=== PATIENT | female | born 1955 | race African-American/Black ===

== ENCOUNTER 2016-04-25 10:01 | Emergency (ER) | payer OTHER ==
[2016-04-25] MEDS ORDERED: MAGNESIUM SULFATE-D5W PMX 1 GM in DEXTROSE/WATER 1 100ML.BAG IVPB STA (10:22)
[2016-04-25] MEDS ORDERED: methylPREDNISolone SOD SUCCI 125 MG/2 ML VIAL IV STA (10:22)
[2016-04-25] MEDS ORDERED: SODIUM CHLORIDE 0.9% 1,000 ML IV STA (10:22)
[2016-04-25] MEDS ORDERED: IPRATROPIUM-ALBUTEROL 3 ML NEB INHALATION STA ×2 (10:22→12:00)
--- NOTE | 2016-04-25 10:25 | ED ---
SOB HPI - General Chief Complaint: Shortness of Breath Stated Complaint: sob Time Seen by Provider: 04/25/16 10:05 Source: patient, RN notes reviewed Mode of arrival: ambulatory Limitations: no limitations - History of Present Illness Initial Comments: This is a 61 also has had some hot flashes. She states she has some anterior chest pain she thinks is secondary to coughing. No known history of heart disease. She denies any chills or sweats she is a nonsmoker. She denies any nausea vomiting abdominal pain or other symptoms. No peripheral edema.-year- old female with a history of asthma and sarcoid who states she had the onset 5 days ago of some shortness of breath and a cough this somewhat productive and she has a difficult time getting phlegm up who MD Complaint: shortness of breath, cough - Related Data Home Medications Medication Instructions Recorded Confirmed Albuterol Inhaler [Ventolin Hfa 1 - 2 puff INHALATION RT-Q6H PRN 05/09/14 Inhaler] Fluticasone/Salmeterol [Advair 1 puff INHALATION RT-BID 05/09/14 04/25/16 500-50 Diskus] Montelukast [Singulair] 10 mg PO HS 05/09/14 04/25/16 Multivitamins, Thera [Multivitamin] 1 tab PO DAILY 05/09/14 04/25/16 Triamcinolone Acetonide [Nasacort] 1 spray EA NOSTRIL DAILY PRN 05/09/14 amLODIPine [Norvasc] 10 mg PO HS 05/09/14 04/25/16 Albuterol Nebulized [Ventolin 2.5 mg INHALATION RT-Q4H PRN 04/25/16 04/25/16 Nebulized] Aspirin EC [Ecotrin Low Dose] 81 mg PO HS 04/25/16 04/25/16 Loratadine [Claritin] 10 mg PO DAILY 04/25/16 04/25/16 Omeprazole 40 mg PO HS 04/25/16 04/25/16 Propylene Glycol/Peg 400/Pf 1 drop BOTH EYES DAILY PRN 04/25/16 04/25/16 [Systane 0.3-0.4% Eye Drops] Previous Rx's Medication Instructions Recorded predniSONE 20 mg PO BID #10 tab 04/25/16 Allergies Allergy/AdvReac Type Severity Reaction Status Date / Time Penicillins Allergy Rash/Hives Verified 04/25/16 10:26 Review of Systems ROS Statement: Those systems with pertinent positive or pertinent negative responses have been documented in the HPI. ROS Other: All systems not noted in ROS Statement are negative. Past Medical History Past Medical History: Asthma, GERD/Reflux, Hypertension Additional Past Medical History / Comment(s): Sarcoidosis History of Any Multi-Drug Resistant Organisms: None Reported Past Surgical History: Bowel Resection Additional Past Surgical History / Comment(s): EGD, VOCAL CORD POLYPS Past Anesthesia/Blood Transfusion Reactions: No Reported Reaction Past Psychological History: No Psychological Hx Reported Smoking Status: Never smoker Past Alcohol Use History: Occasional Past Drug Use History: None Reported - Past Family History Father Family Medical History: Cancer Additional Family Medical History / Comment(s): throat cancer Mother Family Medical History: Musculoskeletal Disorder Additional Family Medical History / Comment(s): knee surgery General Exam - General Exam Comments Initial Comments: This is a well-developed well-nourished awake alert oriented 3 female she is audibly wheezing just on an questioning Limitations: no limitations General appearance: alert, anxious, in distress Head exam: Present: atraumatic, normocephalic, normal inspection Eye exam: Present: normal appearance, PERRL, EOMI. Absent: scleral icterus, conjunctival injection, periorbital swelling ENT exam: Present: normal exam, mucous membranes moist Neck exam: Present: normal inspection. Absent: tenderness, meningismus, lymphadenopathy Respiratory exam: Present: respiratory distress, wheezes, decreased breath sounds. Absent: rales, rhonchi, stridor Cardiovascular Exam: Present: normal rhythm, tachycardia, normal heart sounds. Absent: systolic murmur, diastolic murmur, rubs, gallop, clicks GI/Abdominal exam: Present: soft, normal bowel sounds. Absent: distended, tenderness, guarding, rebound, rigid Extremities exam: Present: normal inspection, full ROM, normal capillary refill. Absent: tenderness, pedal edema, joint swelling, calf tenderness Back exam: Present: normal inspection Neurological exam: Present: alert, oriented X3, CN II-XII intact Psychiatric exam: Present: normal affect, normal mood Skin exam: Present: warm, dry, intact, normal color. Absent: rash Course Vital Signs 01/07/0704/25/16 04/25/16 10:05 10:35 10:40 Temperature 97.6 F Pulse Rate 102 H 100 101 H Respiratory 20 Rate Blood Pressure 155/70 O2 Sat by Pulse 95 Oximetry 04/25/16 04/25/16 04/25/16 10:57 10:59 12:17 Temperature Pulse Rate 91 94 Respiratory 18 18 Rate Blood Pressure 144/69 O2 Sat by Pulse 99 Oximetry 04/25/16 12:25 Temperature Pulse Rate 96 Respiratory Rate Blood Pressure O2 Sat by Pulse Oximetry - Reevaluation(s) Reevaluation #1: 04/25/16 13:06 Initial reevaluation revealed slight improvement with still diffuse wheezing. The patient did not feel much better. Medical Decision Making - Medical Decision Making Reevaluation the patient revealed her to be much improved with good aeration she feels much better than she did initially. She still has occasional slight crepitation was does seem to clear with deep breathing. She would like to go home though she was offered admission. She will follow-up with Dr. Sutton who she is seen in the past we did discuss the x-ray findings. She does have appropriate medications at home she will be placed on steroids. She is return when necessary - Lab Data Result diagrams: 04/25/16 10:46 04/25/16 10:46 Lab Results 04/25/16 04/25/16 04/25/16 Range/Units 10:46 10:46 10:46 WBC 7.5 (3.8-10.6) k/uL RBC 4.65 (3.80-5.40) m/uL Hgb 12.9 (11.4-16.0) gm/dL Hct 40.3 (34.0-46.0) % MCV 86.8 (80.0-100.0) fL MCH 27.7 (25.0-35.0) pg MCHC 31.9 (31.0-37.0) g/dL RDW 13.2 (11.5-15.5) % Plt Count 238 (150-450) k/uL Neutrophils % 72 % Lymphocytes % 19 % Monocytes % 5 % Eosinophils % 1 % Basophils % 0 % Neutrophils # 5.4 (1.3-7.7) k/uL Lymphocytes # 1.4 (1.0-4.8) k/uL Monocytes # 0.4 (0-1.0) k/uL Eosinophils # 0.1 (0-0.7) k/uL Basophils # 0.0 (0-0.2) k/uL PT (9.0-12.0) sec INR (<1.1) APTT (22.0-30.0) sec Sodium 145 (137-145) mmol/L Potassium 3.9 (3.5-5.1) mmol/L Chloride 106 (98-107) mmol/L Carbon Dioxide 26 (22-30) mmol/L Anion Gap 13 mmol/L BUN 10 (7-17) mg/dL Creatinine 0.72 (0.52-1.04) mg/dL Est GFR (MDRD) Af Amer >60 (>60 ml/min/1.73 sqM) Est GFR (MDRD) Non-Af >60 (>60 ml/min/1.73 sqM) Glucose 120 H (74-99) mg/dL Calcium 8.9 (8.4-10.2) mg/dL Magnesium 2.0 (1.6-2.3) mg/dL Total Bilirubin 0.4 (0.2-1.3) mg/dL AST 24 (14-36) U/L ALT 30 (9-52) U/L Alkaline Phosphatase 97 (38-126) U/L Total Creatine Kinase 165 H (30-135) U/L CK-MB (CK-2) 1.6 (0.0-2.4) ng/mL CK-MB (CK-2) Rel Index 1.0 Troponin I <0.012 (0.000-0.034) ng/mL NT-Pro-B Natriuret Pep pg/mL Total Protein 7.4 (6.3-8.2) g/dL Albumin 4.1 (3.5-5.0) g/dL 04/25/16 04/25/16 Range/Units 10:46 10:46 WBC (3.8-10.6) k/uL RBC (3.80-5.40) m/uL Hgb (11.4-16.0) gm/dL Hct (34.0-46.0) % MCV (80.0-100.0) fL MCH (25.0-35.0) pg MCHC (31.0-37.0) g/dL RDW (11.5-15.5) % Plt Count (150-450) k/uL Neutrophils % % Lymphocytes % % Monocytes % % Eosinophils % % Basophils % % Neutrophils # (1.3-7.7) k/uL Lymphocytes # (1.0-4.8) k/uL Monocytes # (0-1.0) k/uL Eosinophils # (0-0.7) k/uL Basophils # (0-0.2) k/uL PT 10.2 (9.0-12.0) sec INR 1.0 (<1.1) APTT 24.2 (22.0-30.0) sec Sodium (137-145) mmol/L Potassium (3.5-5.1) mmol/L Chloride (98-107) mmol/L Carbon Dioxide (22-30) mmol/L Anion Gap mmol/L BUN (7-17) mg/dL Creatinine (0.52-1.04) mg/dL Est GFR (MDRD) Af Amer (>60 ml/min/1.73 sqM) Est GFR (MDRD) Non-Af (>60 ml/min/1.73 sqM) Glucose (74-99) mg/dL Calcium (8.4-10.2) mg/dL Magnesium (1.6-2.3) mg/dL Total Bilirubin (0.2-1.3) mg/dL AST (14-36) U/L ALT (9-52) U/L Alkaline Phosphatase (38-126) U/L Total Creatine Kinase (30-135) U/L CK-MB (CK-2) (0.0-2.4) ng/mL CK-MB (CK-2) Rel Index Troponin I (0.000-0.034) ng/mL NT-Pro-B Natriuret Pep 88 pg/mL Total Protein (6.3-8.2) g/dL Albumin (3.5-5.0) g/dL - EKG Data -: EKG Interpreted by Me EKG shows normal: sinus rhythm (Sinus rhythm a rate of 94. Interval 146 QRS duration 96 QT/QTC of 388/45 prolonged QT is noted no acute ST T-wave elevation or depression.) - Radiology Data Radiology results: report reviewed (I did review the imaging and report or is evidence of persistent bilateral hilar enlargement greater on the right and does appear to be somewhat increased from the previous exam per the radiologist correlation is for adenopathy or mass.), image reviewed Disposition Clinical Impression: Acute exacerbation of chronic obstructive airways disease, Sarcoidosis of lung , Acute bronchospasm Disposition: HOME SELF-CARE Condition: Good Instructions: Bronchospasm (ED), COPD (Chronic Obstructive Pulmonary Disease) ( ED), Sarcoidosis (ED) Prescriptions: predniSONE 20 mg PO BID #10 tab
[2016-04-25 11:02] VITALS: RESP 18
[2016-04-25 11:10] LABS: Basophils % (A) 0 %; CH 27.7; CHCM 32.1; Eosinophils # (A) 0.1 k/uL (0-0.7); Eosinophils % (A) 1 %; HCT 40.3 % (34.0-46.0); HDW 3.14; HGB 12.9 gm/dL (11.4-16.0); Luc # (Auto) 0.17; Luc % (Auto) 2; Lymphocytes # (A) 1.4 k/uL (1.0-4.8); Lymphocytes % (A) 19 %; MCH 27.7 pg (25.0-35.0); MCHC 31.9 g/dL (31.0-37.0); MCV 86.8 fL (80.0-100.0); Mean Platelet Volume 8.1; Monocytes # (A) 0.4 k/uL (0-1.0); Monocytes % (A) 5 %; Neutrophils # (A) 5.4 k/uL (1.3-7.7); Neutrophils % (A) 72 %; RBC 4.65 m/uL (3.80-5.40); RDW 13.2 % (11.5-15.5); WBC 7.5 k/uL (3.8-10.6); WBC (Perox) 7.65
[2016-04-25 11:22] LABS: ALT 30 U/L (9-52); AST 24 U/L (14-36); Alkaline Phosphatase 97 U/L (38-126); Anion Gap 13 mmol/L; Blood Urea Nitrogen 10 mg/dL (7-17); Calcium 8.9 mg/dL (8.4-10.2); Carbon Dioxide 26 mmol/L (22-30); Chloride 106 mmol/L (98-107); Glucose 120 mg/dL (74-99); Non-African American GFR(MDRD) >60 (>60 ml/min/1.73 sqM); Potassium 3.9 mmol/L (3.5-5.1); Sodium 145 mmol/L (137-145); Total Bilirubin 0.4 mg/dL (0.2-1.3); Total Protein 7.4 g/dL (6.3-8.2)
--- NOTE | 2016-04-25 11:22 | XR ---
EXAMINATION TYPE: XR chest 2V DATE OF EXAM: 04/25/2016 11:05 AM COMPARISON: 01/19/2016 HISTORY: Sarcoidosis FINDINGS: Changes of COPD and pulmonary fibrosis are noted. There is marked bilateral hilar enlargement which c ould been the basis of adenopathy or mass. No pneumothorax or pleural effusion. No acute consolidatio n. Chronic subsegmental bronchiectasis or scarring involving the left lung base. Degenerative change of the spine. IMPRESSION: 1. No acute process. Persistent bilateral hilar enlargement greater on the right which appears increa sed from the previous exam. Correlate for adenopathy or mass. 2. COPD and pulmonary fibrosis
[2016-04-25 11:25] LABS: Partial Thromboplastin Time 24.2 sec (22.0-30.0); Prothrombin Time 10.2 sec (9.0-12.0)
[2016-04-25 11:45] LABS: Creatine Kinase 165 U/L (30-135)
[2016-04-25 11:57] LABS: Creatine Kinase MB 1.6 ng/mL (0.0-2.4); Troponin I <0.012 ng/mL (0.000-0.034)
[2016-04-25 13:20] VITALS: BP 143/71; PULSE 87; TEMP 97.4
== END 2016-04-25 13:25 | disposition home or self-care (01) ==
LOC: EC 10:01
DX: J44.1 Chronic obstructive pulmonary disease with (acute) exacerbation (principal); D86.0 Sarcoidosis of lung; J45.909 Unspecified asthma, uncomplicated; I10 Essential (primary) hypertension; K21.9 Gastro-esophageal reflux disease without esophagitis; Z79.82 Long term (current) use of aspirin; Z79.51 Long term (current) use of inhaled steroids; Z79.899 Other long term (current) drug therapy; Z88.0 Allergy status to penicillin
CPT/HCPCS: 99285; 96365; 96375; 96361; 36415; 94640 ×2; 93005; 83880; 80053; 82550; 82553; 83735; 84484; 85025; 85610; 85730; 87040; 71020; J2930; J3475

== ENCOUNTER → 2016-05-02 | Outpatient (CLI) | payer OTHER | END | disposition home or self-care (01) | LOC: LABWHC1 14:04 | PROVIDERS: ATTEND Surgery Plastic and Reconstructive Surgery | DX: R53.83 Other fatigue (principal) | CPT/HCPCS: 36415; 84439; 84443; 84481 ==

== ENCOUNTER 2016-05-05 08:02 | Day surgery (SDC) | payer OTHER ==
[2016-05-03 11:26] VITALS: BMI 36.0
--- NOTE | 2016-05-05 07:46 | P.GSHP ---
History of Present Illness H&P Date: 05/05/16 CHIEF COMPLAINT: Cholecystitis HISTORY OF PRESENT ILLNESS: The patient is a 61-year-old female who presents with history of epigastric including right upper quadrant abdominal pain. She underwent diagnostic studies for her gallbladder. Separately her clinical picture was consistent with cholecystitis. Now she presents for surgical intervention. PAST MEDICAL HISTORY: Please see list PAST SURGICAL HISTORY: Please see list MEDICATIONS: Please see list ALLERGIES: Denies. SOCIAL HISTORY: No illicit drug use or recent tobacco use FAMILY HISTORY: Pertinent for gallbladder disease REVIEW OF ORGAN SYSTEMS: CONSTITUTIONAL: No reports of fevers or chills. HEENT: Denies any troubles with the vision or hearing. PHYSICAL EXAM: VITAL SIGNS: Afebrile vital signs stable GENERAL: Well-developed pleasant female in no acute distress. HEENT: No scleral icterus. Extraocular movements grossly intact. Moist buccal mucosa. NECK: Supple without lymphadenopathy. CHEST: Unlabored respirations. Equal bilateral excursions. CARDIOVASCULAR: Regular rate regular rhythm rhythm. Distal 2+ pulses. ABDOMEN: Soft, nondistended. Tender along the epigastrium and right upper quadrant. MUSCULOSKELETAL: No clubbing, cyanosis, or edema. NEURO: Cranial nerves II to XII within normal limits. No focal or lateralizing signs. PSYCH: Alert and oriented to person, place and time. ASSESSMENT: 1. Epigastric and right upper quadrant abdominal pain 2. Chronic cholecystitis PLAN: 1. Will need a laparoscopic cholecystectomy possible open. Benefits and risks were described. 2. Heparin for DVT prophylaxis 5000 units. 3. Antibiotic prophylaxis. Past Medical History Past Medical History: Asthma, GERD/Reflux, Hypertension, Pneumonia Additional Past Medical History / Comment(s): Sarcoidosis History of Any Multi-Drug Resistant Organisms: None Reported Past Surgical History: Bowel Resection, Breast Surgery Additional Past Surgical History / Comment(s): EGD, VOCAL CORD POLYPS, RT BREAST LUMPECTOMY Past Anesthesia/Blood Transfusion Reactions: No Reported Reaction Past Psychological History: No Psychological Hx Reported Smoking Status: Never smoker Past Alcohol Use History: Occasional Past Drug Use History: None Reported - Past Family History Father Family Medical History: Cancer Additional Family Medical History / Comment(s): throat cancer Mother Family Medical History: Musculoskeletal Disorder Additional Family Medical History / Comment(s): knee surgery Medications and Allergies Home Medications Medication Instructions Recorded Confirmed Type Albuterol Inhaler [Ventolin Hfa 1 - 2 puff INHALATION RT-Q6H PRN 05/09/14 History Inhaler] Fluticasone/Salmeterol [Advair 1 puff INHALATION RT-BID 05/09/14 05/03/16 History 500-50 Diskus] Montelukast [Singulair] 10 mg PO HS 05/09/14 05/03/16 History Multivitamins, Thera [Multivitamin] 1 tab PO DAILY 05/09/14 05/03/16 History Triamcinolone Acetonide [Nasacort] 1 spray EA NOSTRIL DAILY PRN 05/09/14 History amLODIPine [Norvasc] 10 mg PO HS 05/09/14 05/03/16 History Albuterol Nebulized [Ventolin 2.5 mg INHALATION RT-Q4H PRN 04/25/16 05/03/16 History Nebulized] Aspirin EC [Ecotrin Low Dose] 81 mg PO HS 04/25/16 05/03/16 History Loratadine [Claritin] 10 mg PO DAILY 04/25/16 05/03/16 History Omeprazole 40 mg PO HS 04/25/16 05/03/16 History Propylene Glycol/Peg 400/Pf 1 drop BOTH EYES DAILY PRN 04/25/16 05/03/16 History [Systane 0.3-0.4% Eye Drops] Allergies Allergy/AdvReac Type Severity Reaction Status Date / Time Penicillins Allergy Rash/Hives Verified 05/03/16 11:19
[~2016-05-05 08:02] MED LIST: ACETAMINOPHEN IV (For NPO) 1,000 MG in EMPTY BAG 1 BAG IVPB ONE; HEPARIN SODIUM,PORCINE 5,000 UNIT/ML 1 ML VIAL SQ ONE; ceFAZolin 2 GM in SODIUM CHLORIDE 0.9% 100 ML IVPB ONE
[2016-05-05] MEDS ORDERED: LACTATED RINGERS 1,000 ML IV SCH (08:39)
[2016-05-05] MEDS ORDERED: SCOPOLAMINE 1.5MG/72HR PATCH TRANSDERM ONE (08:39)
[2016-05-05] MEDS ORDERED: MIDAZOLAM 2 MG/2 ML VIAL IV PRN (08:39)
[2016-05-05] MEDS ORDERED: DEXAMETHASONE SOD PHOSPHATE 10 MG/ML 1 ML VIAL IV ONE (08:39)
[2016-05-05] MEDS: ONDANSETRON 4 MG/2 ML VIAL IVP ONE ×2 (09:23→12:57)
[2016-05-05] MEDS ORDERED: PHENYLEPHRINE-0.9% NACL SYG 1 MG/10 ML SYRINGE ONE (11:07)
[2016-05-05] MEDS ORDERED: LIDOCAINE 1% INJ 10MG/ML (20 ML MDV) ONE (11:07)
[2016-05-05] MEDS ORDERED: GLYCOPYRROLATE 0.2 MG/ML 2 ML VIAL ONE (11:07)
[2016-05-05] MEDS ORDERED: fentaNYL (PF) 50 MCG/ML 2 ML AMP ONE (11:07)
[2016-05-05] MEDS ORDERED: SUCCINYLCHOLINE CHLORIDE 100 MG/5 ML SYR IV ONE (11:07)
[2016-05-05] MEDS ORDERED: MIDAZOLAM 2 MG/2 ML VIAL ONE (11:07)
[2016-05-05] MEDS ORDERED: ROCURONIUM BROMIDE 10 MG/ML 10 ML VIAL IV ONE (11:07)
[2016-05-05] MEDS ORDERED: PROPOFOL 10 MG/ML 20 ML VIAL IV ONE (11:07)
[2016-05-05] MEDS ORDERED: HYDROmorphone (PF) 1 MG/ML ONE (11:07)
[2016-05-05] MEDS ORDERED: NEOSTIGMINE 1 MG/ML 10 ML VIAL ONE (11:07)
[2016-05-05] MEDS ORDERED: BUPIVACAIN-EPI 0.25%-1:200,000 30 ML VIAL SQ ONE (11:31)
[2016-05-05] MEDS ORDERED: HYDROcodone/APAP 5-325MG 1 EACH TAB PO PRN (12:26)
[2016-05-05] MEDS ORDERED: NALOXONE 0.4 MG/ML 1 ML VIAL IV PRN (12:26)
[2016-05-05] MEDS ORDERED: PROMETHAZINE 25 MG TAB PO PRN (12:26)
--- NOTE | 2016-05-05 12:32 | P.OP ---
Date of Procedure: 05/05/16 Description of Procedure: SURGEON: SADIE NICHOLE MD UNDERGRADUATE INTERN: None. PREOPERATIVE DIAGNOSES: 1. Chronic Cholecystitis. 2. Right upper quadrant pain. 3. History of malignant neoplasm, ascending colon. 4. Sarcoidosis. 5. Asthma. 6. Gastroesophageal reflux disease. 7. Morbid obesity, BMI 36.0. 8. Essential hypertension. POSTOPERATIVE DIAGNOSES: 1. Chronic Cholecystitis. 2. Right upper quadrant pain. 3. History of malignant neoplasm, ascending colon. 4. Sarcoidosis. 5. Asthma. 6. Gastroesophageal reflux disease. 7. Morbid obesity, BMI 36.0. 8. Essential hypertension. 9. Peritoneal adhesions, greater omentum to right upper abdominal wall. OPERATION: 1. Laparoscopic cholecystectomy 2. ANESTHESIA: General with 30 mL 0.25% Marcaine with epinephrine. ESTIMATED BLOOD LOSS: 5 mL. SPECIMENS REMOVED: Gallbladder. COMPLICATIONS: None. INDICATIONS: The patient is a 61-year-old female who presents with chronic cholecysitis. Surgical intervention with a laparoscopic cholecystectomy was described at length including injury to the biliary tree, bleeding, infection, need for further surgery. Informed consent was obtained. DESCRIPTION OF THE PROCEDURE: The patient was brought to the operating room, laid in supine position. After general induction, the abdomen was prepped and draped in a standard sterile fashion. Prior to incision, a timeout protocol was confirmed with surgical team regarding patient's name, procedure to be performed including preoperative medications for which she had received heparin 5000 units subcutaneously as well as bilateral SCDs for DVT prophylaxis. A transverse 5 mm incision was made above the umbilicus and off to the right of the midline. Please note the skin was localized prior to incision. A 0 degree 5-mm laparoscopic trocar entry was performed and entered into the peritoneal cavity. Diagnostic laparoscopy confirmed no injury to bowel, viscera or mesentery. The liver serosa was completely unremarkable. Next, two 5 mm trocars were placed along the right costal margin followed by a 11 mm port at the left upper quadrant. The patient was placed in steep reverse Trendelenburg position with the right side up. The gallbladder fundus was retracted over the dome of the liver. Initial attention was brought to the infundibulum which was gently retracted in the inferior lateral approach. Using a Kittner, the cystic duct including the cystic artery was carefully skeletonized. Using a large clip pumping supervisor 2 clips were placed proximally, and 2 clip was placed distally along the cystic duct and then cut. Again care was taken to avoid any injury to the biliary tree as the common bile duct was clearly visualized during this portion of dissection. Next, the cystic artery was clipped twice proximally, once distally and then cauterized. Electro-Bovie cautery was used to remove the gallbladder from the hepatic fossa without decompression of the gallbladder. Hemostasis was checked and found to be adequate. The gallbladder was removed from the abdominal cavity using an Endo Catch bag and passed off for further pathological analysis. All instruments and pneumoperitoneum were removed from the abdominal cavity. The fascial defect was less than 8 mm for the 11-mm port site. The rest of incisions were reapproximated using 4-0 Monocryl in an interrupted subcuticular fashion. A total of 30 mL of 0.25% Marcaine with epinephrine was infiltrated to all wounds for postop analgesia. Dermabond was applied to the skin. At the end of the procedure, needle, sponge, and instrument count was verified correct by surgical instrument technician. The patient had tolerated the procedure well and was taken to postanesthesia care unit in stable condition. Intraoperative films were discussed and reviewed with the patient's family who were pleased with the level of care. FINDINGS: 1. Chronic cholecystitis. 2. Unremarkable liver surface. Plan - Discharge Summary New Discharge Prescriptions: Hydrocodone/Acetaminophen [[place] 5-325] 1 - 2 each PO Q6HR PRN #30 tab PRN Reason: Pain Discharge Medication List Albuterol Inhaler [Ventolin Hfa Inhaler] 1 - 2 puff INHALATION RT-Q6H PRN [History] Fluticasone/Salmeterol [Advair 500-50 Diskus] 1 puff INHALATION RT-BID 05/09/14 [History] Montelukast [Singulair] 10 mg PO HS 05/09/14 [History] Multivitamins, Thera [Multivitamin] 1 tab PO DAILY 05/09/14 [History] Triamcinolone Acetonide [Nasacort] 1 spray EA NOSTRIL DAILY PRN 05/09/14 [ History] amLODIPine [Norvasc] 10 mg PO HS 05/09/14 [History] Albuterol Nebulized [Ventolin Nebulized] 2.5 mg INHALATION RT-Q4H PRN 04/25/16 [ History] Aspirin EC [Ecotrin Low Dose] 81 mg PO HS 04/25/16 [History] Loratadine [Claritin] 10 mg PO DAILY 04/25/16 [History] Omeprazole 40 mg PO HS 04/25/16 [History] Propylene Glycol/Peg 400/Pf [Systane 0.3-0.4% Eye Drops] 1 drop BOTH EYES DAILY PRN 04/25/16 [History] Hydrocodone/Acetaminophen [[place] 5-325] 1 - 2 each PO Q6HR PRN #30 tab 05/05/16 [Rx] Follow up Appointment(s)/Referral(s): Sadie Nichole MD [Family Provider] - 05/09/16 2:00 pm Patient Instructions/Handouts: *[facility] - Laparoscopic Cholecystectomy Discharge Instructions, *[facility] - (Anesthesia) Discharge Instructions Outpatient Surgery, Low Fat Diet (GEN) Discharge Disposition: HOME SELF-CARE
[2016-05-05] MEDS: HYDROmorphone 1 MG/ML 1 ML SYRINGE IVP PRN ×2 (12:38→12:43)
[2016-05-05 12:40] VITALS: TEMP 97.8
[2016-05-05] MEDS ORDERED: LACTATED RINGERS 1,000 ML IV ONE (12:42)
[2016-05-05 13:25] VITALS: RESP 16
[2016-05-05] MEDS ORDERED: HYDROcodone/APAP 5-325MG 1 EACH TAB PO ONE (13:57)
[2016-05-05] MEDS ORDERED: ALBUTEROL NEBULIZED 2.5 MG/3 ML INHALATION STA (14:27)
[2016-05-05 14:51] VITALS: BP 126/74; PULSE 84
--- NOTE | 2016-05-07 18:12 | OP ---
DATE: 04/25/2016 SURGEON: MAGNO GALLARDO MD PACKAGING LINE ATTENDANT: None. PREOPERATIVE DIAGNOSES: 1. Chronic Cholecystitis. 2. Right upper quadrant pain. 3. History of malignant neoplasm, ascending colon. 4. Sarcoidosis. 5. Asthma. 6. Gastroesophageal reflux disease. 7. Morbid obesity, BMI 36.0. 8. Essential hypertension. POSTOPERATIVE DIAGNOSES: 1. Chronic Cholecystitis. 2. Right upper quadrant pain. 3. History of malignant neoplasm, ascending colon. 4. Sarcoidosis. 5. Asthma. 6. Gastroesophageal reflux disease. 7. Morbid obesity, BMI 36.0. 8. Essential hypertension. 9. Peritoneal adhesions, greater omentum to right upper abdominal wall. OPERATION: 1. Laparoscopic cholecystectomy 2. Laparoscopic lysis of adhesions, over 30 minutes. ANESTHESIA: General with 30 mL 0.25% Marcaine with epinephrine. ESTIMATED BLOOD LOSS: 5 mL. SPECIMENS REMOVED: Gallbladder. COMPLICATIONS: None. INDICATIONS: The patient is a 61-year-old female who presents with chronic cholecysitis. Surgical intervention with a laparoscopic cholecystectomy was described at length including injury to the biliary tree, bleeding, infection, need for further surgery. Informed consent was obtained. DESCRIPTION OF THE PROCEDURE: The patient was brought to the operating room, laid in supine position. After general induction, the abdomen was prepped and draped in a standard sterile fashion. Prior to incision, a timeout protocol was confirmed with surgical team regarding patient's name, procedure to be performed including preoperative medications for which she had received heparin 5000 units subcutaneously as well as bilateral SCDs for DVT prophylaxis. A transverse 5 mm incision was made above the umbilicus and off to the right of the midline. Please note the skin was localized prior to incision. A 0 degree 5-mm laparoscopic trocar entry was performed and entered into the peritoneal cavity. Diagnostic laparoscopy confirmed no injury to bowel, viscera or mesentery. The liver serosa was completely unremarkable. Next, two 5 mm trocars were placed along the right costal margin followed by a 11 mm port at the left upper quadrant. The patient was placed in steep reverse Trendelenburg position with the right side up. The gallbladder fundus was retracted over the dome of the liver. Initial attention was brought to the infundibulum which was gently retracted in the inferior lateral approach. Using a Kittner, the cystic duct including the cystic artery was carefully skeletonized. Using a large clip director of medical education 2 clips were placed proximally, and 2 clip was placed distally along the cystic duct and then cut. Again care was taken to avoid any injury to the biliary tree as the common bile duct was clearly visualized during this portion of dissection. Next, the cystic artery was clipped twice proximally, once distally and then cauterized. Electro-Bovie cautery was used to remove the gallbladder from the hepatic fossa without decompression of the gallbladder. Hemostasis was checked and found to be adequate. The gallbladder was removed from the abdominal cavity using an Endo Catch bag and passed off for further pathological analysis. All instruments and pneumoperitoneum were removed from the abdominal cavity. The fascial defect was less than 8 mm for the 11-mm port site. The rest of incisions were reapproximated using 4-0 Monocryl in an interrupted subcuticular fashion. A total of 30 mL of 0.25% Marcaine with epinephrine was infiltrated to all wounds for postop analgesia. Dermabond was applied to the skin. At the end of the procedure, needle, sponge, and instrument count was verified correct by surgical nurse practitioner. The patient had tolerated the procedure well and was taken to postanesthesia care unit in stable condition. Intraoperative films were discussed and reviewed with the patient's family who were pleased with the level of care. FINDINGS: 1. Chronic cholecystitis. 2. Unremarkable liver surface. 3. Severe intra-abdominal adhesions, incorporating greater omentum, including small bowel along the right lateral and right upper abdomen from her previous open right hemicolectomy. 4. Cystic duct obstruction with gallstone confirming acute and chronic cholecystitis. SHAYY
== END 2016-05-05 15:14 | disposition home or self-care (01) ==
LOC: OR 08:02
PROVIDERS: ATTEND Surgery Plastic and Reconstructive Surgery
DX: K80.13 Calculus of gallbladder with acute and chronic cholecystitis with obstruction (principal); K66.0 Peritoneal adhesions (postprocedural) (postinfection); Z83.79 Family history of other diseases of the digestive system; E66.01 Morbid (severe) obesity due to excess calories; D86.9 Sarcoidosis, unspecified; J45.909 Unspecified asthma, uncomplicated; K21.9 Gastro-esophageal reflux disease without esophagitis; I10 Essential (primary) hypertension; Z79.82 Long term (current) use of aspirin; Z79.51 Long term (current) use of inhaled steroids; Z79.899 Other long term (current) drug therapy; Z88.0 Allergy status to penicillin
CPT/HCPCS: 94640; 88304; 47562; 49329; J2250; J1644; J1100; J2710; J0690; J2405; J2001; J3010; J1170; J0131; J2370; J0330; J2704

== ENCOUNTER 2016-07-21 05:29 | Emergency (ER) | payer OTHER ==
[2016-07-21] MEDS ORDERED: IPRATROPIUM-ALBUTEROL 3 ML NEB INHALATION STA (05:46)
[2016-07-21] MEDS ORDERED: ALBUTEROL NEB (CONC) 2.5 MG/0.5 ML INHALATION STA (05:53)
[2016-07-21] MEDS ORDERED: predniSONE 20 MG TAB PO STA (06:10)
--- NOTE | 2016-07-21 06:14 | ED ---
SOB HPI - General Chief Complaint: Shortness of Breath Stated Complaint: SOB Time Seen by Provider: 07/21/16 05:45 Source: patient Mode of arrival: wheelchair Limitations: no limitations - History of Present Illness Initial Comments: This patient is a 61-year-old woman with history of sarcoidosis, who notes that her symptoms have been flaring over the past 1-2 weeks. The patient states she has had a bit of a cough and wheezing which is been getting worse and then she started having shortness of breath over the past few days. Patient states she did try home nebulized treatment but without much improvement. Patient denies fever or chills, sputum production, chest pain, leg pain or swelling, change in urination or bowel movements. MD Complaint: shortness of breath, cough Onset/Timin -: week(s) Known History Of: other (Sarcoidosis) Associated Symptoms: cough Treatments Prior to Arrival: bronchodilator - Related Data Home Medications Medication Instructions Recorded Confirmed Albuterol Inhaler [Ventolin Hfa 1 - 2 puff INHALATION RT-Q6H PRN 05/09/14 Inhaler] Fluticasone/Salmeterol [Advair 1 puff INHALATION RT-BID 05/09/14 07/21/16 500-50 Diskus] Montelukast [Singulair] 10 mg PO HS 05/09/14 07/21/16 Multivitamins, Thera [Multivitamin 1 tab PO DAILY 05/09/14 07/21/16 (formulary)] Triamcinolone Acetonide [Nasacort] 1 spray EA NOSTRIL DAILY PRN 05/09/14 amLODIPine [Norvasc] 10 mg PO HS 05/09/14 07/21/16 Albuterol Nebulized [Ventolin 2.5 mg INHALATION RT-Q4H PRN 04/25/16 07/21/16 Nebulized] Aspirin EC [Ecotrin Low Dose] 81 mg PO HS 04/25/16 07/21/16 Loratadine [Claritin] 10 mg PO DAILY 04/25/16 07/21/16 Omeprazole 40 mg PO HS 04/25/16 07/21/16 Propylene Glycol/Peg 400/Pf 1 drop BOTH EYES DAILY PRN 04/25/16 07/21/16 [Systane 0.3-0.4% Eye Drops] Previous Rx's Medication Instructions Recorded Hydrocodone/Acetaminophen [[place] 1 - 2 each PO Q6HR PRN #30 tab 05/05/16 5-325] predniSONE 60 mg PO DAILY #30 tab 07/21/16 Allergies Allergy/AdvReac Type Severity Reaction Status Date / Time Penicillins Allergy Rash/Hives Verified 05/05/16 08:48 Review of Systems ROS Statement: Those systems with pertinent positive or pertinent negative responses have been documented in the HPI. ROS Other: All systems not noted in ROS Statement are negative. Constitutional: Denies: fever, chills Respiratory: Reports: cough, dyspnea, wheezes. Denies: hemoptysis Cardiovascular: Denies: chest pain, orthopnea, edema, syncope Gastrointestinal: Denies: abdominal pain, vomiting, diarrhea, melena, hematochezia Genitourinary: Denies: dysuria Musculoskeletal: Denies: back pain Skin: Denies: rash Neurological: Denies: headache, weakness, numbness Past Medical History Past Medical History: Asthma, GERD/Reflux, Hypertension Additional Past Medical History / Comment(s): sarcoidosis History of Any Multi-Drug Resistant Organisms: None Reported Past Surgical History: Bowel Resection, Cholecystectomy Additional Past Surgical History / Comment(s): EGD, VOCAL CORD POLYPS Past Anesthesia/Blood Transfusion Reactions: No Reported Reaction Past Psychological History: No Psychological Hx Reported Smoking Status: Never smoker Past Alcohol Use History: Occasional Past Drug Use History: None Reported - Past Family History Father Family Medical History: Cancer Additional Family Medical History / Comment(s): throat cancer Mother Family Medical History: Musculoskeletal Disorder Additional Family Medical History / Comment(s): knee surgery General Exam Limitations: no limitations General appearance: alert, in no apparent distress Head exam: Present: atraumatic, normocephalic Eye exam: Present: normal appearance ENT exam: Present: normal oropharynx Neck exam: Present: normal inspection Respiratory exam: Present: respiratory distress (Mild tachypnea), wheezes. Absent: rales, rhonchi, stridor, accessory muscle use, decreased breath sounds, prolonged expiratory Cardiovascular Exam: Present: regular rate, normal rhythm, normal heart sounds. Absent: systolic murmur, diastolic murmur, rubs, gallop GI/Abdominal exam: Present: soft. Absent: distended, tenderness, guarding, rebound Extremities exam: Present: normal inspection, normal capillary refill. Absent: pedal edema, calf tenderness Back exam: Present: normal inspection. Absent: CVA tenderness (R), CVA tenderness (L) Skin exam: Present: warm, dry, intact, normal color. Absent: rash, cyanosis, diaphoretic, erythema, petechiae, pallor, mottled Course Vital Signs 07/21/16 07/21/16 07/21/16 05:33 05:39 05:54 Temperature 98.3 F Pulse Rate 106 H 99 89 Respiratory 24 24 Rate Blood Pressure 161/85 O2 Sat by Pulse 91 L 98 Oximetry 07/21/16 07/21/16 07/21/16 06:05 06:18 07:13 Temperature 97.5 F L 97.8 F Pulse Rate 94 94 80 Respiratory 20 20 Rate Blood Pressure 138/65 125/60 O2 Sat by Pulse 97 96 Oximetry Medical Decision Making - Medical Decision Making Patient states that she is feeling much better following the medications and would like to go home. We discussed further follow-up care and return parameters. Disposition Clinical Impression: Sarcoidosis Disposition: HOME SELF-CARE Condition: Fair Instructions: Bronchospasm (ED), Sarcoidosis (ED) Prescriptions: predniSONE 60 mg PO DAILY #30 tab Referrals: Gabriele Walsh DO [Primary Care Provider] - 1-2 days Precious Wild MD [STAFF PHYSICIAN] - 1-2 days
[2016-07-21 06:35] VITALS: RESP 20
--- NOTE | 2016-07-21 07:17 | XR ---
EXAMINATION TYPE: XR chest 2V DATE OF EXAM: 07/21/2016 6:27 AM COMPARISON: NONE TECHNIQUE: PA and lateral views submitted. HISTORY: Difficulty breathing FINDINGS: Changes of COPD and pulmonary fibrosis are noted. There is marked bilateral hilar enlargement which c ould been the basis of adenopathy or mass. No pneumothorax or pleural effusion. No acute consolidatio n. Chronic subsegmental bronchiectasis or scarring involving the left lung base. Degenerative change of the spine. IMPRESSION: 1. No acute process. Persistent bilateral hilar enlargement greater on the right which appears increa sed from the previous exam. Correlate for adenopathy or mass. 2. COPD and pulmonary fibrosis
[2016-07-21 07:58] VITALS: BP 125/89; PULSE 88; TEMP 98
== END 2016-07-21 07:58 | disposition home or self-care (01) ==
LOC: EC 05:29
DX: D86.9 Sarcoidosis, unspecified (principal); J45.909 Unspecified asthma, uncomplicated; I10 Essential (primary) hypertension; K21.9 Gastro-esophageal reflux disease without esophagitis; Z88.0 Allergy status to penicillin; Z79.82 Long term (current) use of aspirin; Z79.51 Long term (current) use of inhaled steroids; Z79.52 Long term (current) use of systemic steroids; Z79.899 Other long term (current) drug therapy
CPT/HCPCS: 99285; 94640; 93005; 71020; J7512

== ENCOUNTER → 2016-08-11 | Outpatient (CLI) | payer OTHER ==
--- NOTE | 2016-08-11 15:07 | US ---
EXAMINATION TYPE: US thyroid st tissue head/neck DATE OF EXAM: 08/11/2016 2:25 PM COMPARISON: US 2009 CLINICAL HISTORY: 61-year-old female E04.1 Thyroid nodule. Left neck tenderness, history of thyroid n odule. TECHNIQUE: Multiple sonographic images of the thyroid gland are obtained. FINDINGS: GLAND SIZE: Right Lobe: 3.8 x 1.6 x 1.5 cm Overall Parenchyma: homogenous Left Lobe: 3.7 x 1.6 x 1.9 cm Overall Parenchyma: homogeneous Isthmus Thickness: 0.2 cm NODULES RIGHT: # of nodules measured on right: 0 LEFT: # of nodules measured on left: 2 1. 1.9 X 1.3 x 1.5 cm solid nodule at the upper pole with well-defined margins. This nodule is rou nd and shows intranodular vascularity. Prior size: 1.3 x 1.0 x 1.3 cm 2. 0.6 X 0.4 x 0.7 cm echogenic solid nodule inferior to the lower pole with well-defined margins. This nodule is wider than tall and shows no intranodular vascularity. Prior size: No prior ISTHMUS: # of nodules measured in the isthmus: 0 Bilateral neck scanned, no evidence of lymphadenopathy. IMPRESSION: 1. Two solid nodules on the left. The dominant nodule measures 1.9 x 1.5 cm in the upper pole versus 1.3 x 1.3 cm on 10/05/2009. FNA can be considered. 2. Additional solid nodule which appears exophytic from the left lower pole measures 7 mm and was not clearly seen previously. This can be followed.
== END | disposition home or self-care (01) ==
LOC: RADUSWWP 14:06
PROVIDERS: ATTEND Otolaryngology
DX: E04.2 Nontoxic multinodular goiter (principal)
CPT/HCPCS: 76536

== ENCOUNTER 2016-10-03 14:40 | Emergency (ER) | payer OTHER ==
[2016-10-03] MEDS ORDERED: IPRATROPIUM 0.5 MG/2.5 ML NEBU INHALATION STA (15:18)
[2016-10-03] MEDS ORDERED: SODIUM CHLORIDE 0.9% 1,000 ML IV STA (15:18)
[2016-10-03] MEDS ORDERED: methylPREDNISolone SOD SUCCI 125 MG/2 ML VIAL IV STA (15:18)
[2016-10-03] MEDS ORDERED: ALBUTEROL NEBULIZED 2.5 MG/3 ML INHALATION STA (15:18)
--- NOTE | 2016-10-03 15:21 | ED ---
SOB HPI - General Chief Complaint: Shortness of Breath Stated Complaint: SOB Time Seen by Provider: 10/03/16 15:01 Source: patient Mode of arrival: wheelchair Limitations: no limitations - History of Present Illness Initial Comments: History of asthma and sarcoidosis, been short winded for 2 weeks, it has gotten worse over the last 24 hours she also has a history of sarcoidosis and complaining about the chest pain for 2 days as. Chest pain does not get worse with deep breaths, no fever no chills she is not bringing up any sputum. Cough is dry, she has not been very compliant with her Advair and with her rescue inhaler - Related Data Home Medications Medication Instructions Recorded Confirmed Albuterol Inhaler [Ventolin Hfa 1 - 2 puff INHALATION RT-Q6H PRN 05/09/14 Inhaler] Fluticasone/Salmeterol [Advair 1 puff INHALATION RT-BID 05/09/14 10/03/16 500-50 Diskus] Montelukast [Singulair] 10 mg PO HS 05/09/14 10/03/16 amLODIPine [Norvasc] 10 mg PO HS 05/09/14 10/03/16 Albuterol Nebulized [Ventolin 2.5 mg INHALATION RT-Q4H PRN 04/25/16 10/03/16 Nebulized] Propylene Glycol/Peg 400/Pf 1 drop BOTH EYES DAILY PRN 04/25/16 10/03/16 [Systane 0.3-0.4% Eye Drops] Previous Rx's Medication Instructions Recorded Levofloxacin [Levaquin] 500 mg PO DAILY #7 tab 10/03/16 predniSONE 50 mg PO DAILY #5 tablet 10/03/16 Allergies Allergy/AdvReac Type Severity Reaction Status Date / Time Penicillins Allergy Rash/Hives Verified 10/03/16 15:20 Review of Systems ROS Statement: Those systems with pertinent positive or pertinent negative responses have been documented in the HPI. ROS Other: All systems not noted in ROS Statement are negative. Past Medical History Past Medical History: Asthma, GERD/Reflux, Hypertension Additional Past Medical History / Comment(s): sarcoidosis History of Any Multi-Drug Resistant Organisms: None Reported Past Surgical History: Bowel Resection, Cholecystectomy Additional Past Surgical History / Comment(s): EGD, VOCAL CORD POLYPS Past Anesthesia/Blood Transfusion Reactions: No Reported Reaction Past Psychological History: No Psychological Hx Reported Smoking Status: Never smoker Past Alcohol Use History: Occasional Past Drug Use History: None Reported - Past Family History Father Family Medical History: Cancer Additional Family Medical History / Comment(s): throat cancer Mother Family Medical History: Musculoskeletal Disorder Additional Family Medical History / Comment(s): knee surgery General Exam - General Exam Comments Initial Comments: General: The patient is awake and alert, mild distress Skin: Skin is warm and dry and no rashes or lesions are noted. Eye: Pupils are equal, round and reactive to light, extra-ocular movements are intact; there is normal conjunctiva bilaterally. Ears, nose, mouth and throat: There are moist mucous membranes and no oral lesions. Neck: The neck is supple, there is no tenderness Cardiovascular: There is a regular rate and rhythm. No murmur, rub or gallop is appreciated. Respiratory: To auscultation bilateral, noticed severe wheezing bilateral Gastrointestinal: Soft, non-distended, non-tender abdomen without masses or organomegaly noted. There is no rebound or guarding present. Bowel sounds are unremarkable. Back: There is no tenderness to palpation in the midline. There is no obvious deformity. Musculoskeletal: Normal ROM, no tenderness, There is no pedal edema. There is no calf tenderness or swelling. No cords were appreciated. Neurological: CN II-XII intact, Cranial nerves III through XII are intact. There are no obvious motor or sensory deficits. Coordination appears grossly intact. Speech is normal. Psychiatric: Cooperative, appropriate mood & affect, normal judgment. Limitations: no limitations Course Vital Signs 10/03/16 10/03/16 10/03/16 14:48 15:50 16:01 Temperature 98.4 F Pulse Rate 100 101 H 102 H Respiratory 30 H Rate Blood Pressure 137/69 O2 Sat by Pulse 85 L Oximetry 10/03/16 16:35 Temperature Pulse Rate 98 Respiratory Rate Blood Pressure O2 Sat by Pulse Oximetry EKG shows sinus tachycardia ventricular rate is 104 [place] interval is 124 QRS duration is 96 QT/QTc is 364/478 review of this EKG does not reveal any ST elevation or ST depression - Reevaluation(s) Reevaluation #1: 10/03/16 16:46 Patient was reassessed at term 1645, she feels lot better she stated she is feeling 80% better respiratory rate is down to normal wheezing has resolved pretty much just waiting for the x-ray are medical history the x-ray 10/03/16 17:17 Reassessed at and 1715, she is feeling a lot better x-ray does show some chest infection, these findings are chronic since he has a history of sarcoidosis she will go normal prednisone 50 mg once daily for next 5 days Levaquin 500 mg once daily for next 7 days she will continue her Advair and her rescue inhalers Medical Decision Making - Lab Data Result diagrams: 10/03/16 15:05 10/03/16 15:05 Lab Results 10/03/16 10/03/16 10/03/16 Range/Units 15:05 15:05 15:05 WBC 10.0 (3.8-10.6) k/uL RBC 4.95 (3.80-5.40) m/uL Hgb 14.0 (11.4-16.0) gm/dL Hct 44.5 (34.0-46.0) % MCV 90.0 (80.0-100.0) fL MCH 28.3 (25.0-35.0) pg MCHC 31.5 (31.0-37.0) g/dL RDW 13.5 (11.5-15.5) % Plt Count 288 (150-450) k/uL Neutrophils % 65 % Lymphocytes % 22 % Monocytes % 4 % Eosinophils % 7 % Basophils % 1 % Neutrophils # 6.5 (1.3-7.7) k/uL Lymphocytes # 2.2 (1.0-4.8) k/uL Monocytes # 0.4 (0-1.0) k/uL Eosinophils # 0.7 (0-0.7) k/uL Basophils # 0.1 (0-0.2) k/uL PT (9.0-12.0) sec INR (<1.1) APTT (22.0-30.0) sec D-Dimer (<0.60) mg/L FEU Sodium 143 (137-145) mmol/L Potassium 3.5 (3.5-5.1) mmol/L Chloride 104 (98-107) mmol/L Carbon Dioxide 29 (22-30) mmol/L Anion Gap 10 mmol/L BUN 10 (7-17) mg/dL Creatinine 0.74 (0.52-1.04) mg/dL Est GFR (MDRD) Af Amer >60 (>60 ml/min/1.73 sqM) Est GFR (MDRD) Non-Af >60 (>60 ml/min/1.73 sqM) Glucose 96 (74-99) mg/dL Calcium 9.3 (8.4-10.2) mg/dL Total Bilirubin 0.8 (0.2-1.3) mg/dL AST 23 (14-36) U/L ALT 27 (9-52) U/L Alkaline Phosphatase 96 (38-126) U/L Total Creatine Kinase 150 H (30-135) U/L CK-MB (CK-2) 2.5 H* (0.0-2.4) ng/mL CK-MB (CK-2) Rel Index 1.7 Troponin I <0.012 (0.000-0.034) ng/mL Total Protein 8.0 (6.3-8.2) g/dL Albumin 4.5 (3.5-5.0) g/dL 10/03/16 Range/Units 15:05 WBC (3.8-10.6) k/uL RBC (3.80-5.40) m/uL Hgb (11.4-16.0) gm/dL Hct (34.0-46.0) % MCV (80.0-100.0) fL MCH (25.0-35.0) pg MCHC (31.0-37.0) g/dL RDW (11.5-15.5) % Plt Count (150-450) k/uL Neutrophils % % Lymphocytes % % Monocytes % % Eosinophils % % Basophils % % Neutrophils # (1.3-7.7) k/uL Lymphocytes # (1.0-4.8) k/uL Monocytes # (0-1.0) k/uL Eosinophils # (0-0.7) k/uL Basophils # (0-0.2) k/uL PT 10.5 (9.0-12.0) sec INR 1.0 (<1.1) APTT 24.2 (22.0-30.0) sec D-Dimer 0.24 (<0.60) mg/L FEU Sodium (137-145) mmol/L Potassium (3.5-5.1) mmol/L Chloride (98-107) mmol/L Carbon Dioxide (22-30) mmol/L Anion Gap mmol/L BUN (7-17) mg/dL Creatinine (0.52-1.04) mg/dL Est GFR (MDRD) Af Amer (>60 ml/min/1.73 sqM) Est GFR (MDRD) Non-Af (>60 ml/min/1.73 sqM) Glucose (74-99) mg/dL Calcium (8.4-10.2) mg/dL Total Bilirubin (0.2-1.3) mg/dL AST (14-36) U/L ALT (9-52) U/L Alkaline Phosphatase (38-126) U/L Total Creatine Kinase (30-135) U/L CK-MB (CK-2) (0.0-2.4) ng/mL CK-MB (CK-2) Rel Index Troponin I (0.000-0.034) ng/mL Total Protein (6.3-8.2) g/dL Albumin (3.5-5.0) g/dL Disposition Clinical Impression: Acute exacerbation of asthma with allergic rhinitis Disposition: ADMITTED IP TO THIS HOSP Condition: Good Instructions: Asthma (ED) Prescriptions: Levofloxacin [Levaquin] 500 mg PO DAILY #7 tab predniSONE 50 mg PO DAILY #5 tablet Referrals: Gabriele Walsh DO [Primary Care Provider] - 1-2 days
[2016-10-03 15:47] LABS: Basophils # (A) 0.1 k/uL (0-0.2); Basophils % (A) 1 %; CH 28.2; CHCM 31.5; Eosinophils # (A) 0.7 k/uL (0-0.7); Eosinophils % (A) 7 %; HCT 44.5 % (34.0-46.0); HDW 2.76; Luc # (Auto) 0.12; Luc % (Auto) 1; Lymphocytes # (A) 2.2 k/uL (1.0-4.8); Lymphocytes % (A) 22 %; MCH 28.3 pg (25.0-35.0); MCHC 31.5 g/dL (31.0-37.0); Mean Platelet Volume 8.6; Monocytes # (A) 0.4 k/uL (0-1.0); Monocytes % (A) 4 %; Neutrophils # (A) 6.5 k/uL (1.3-7.7); Neutrophils % (A) 65 %; RBC 4.95 m/uL (3.80-5.40); RDW 13.5 % (11.5-15.5); WBC (Perox) 9.45
[2016-10-03 15:56] LABS: ALT 27 U/L (9-52); AST 23 U/L (14-36); Alkaline Phosphatase 96 U/L (38-126); Anion Gap 10 mmol/L; Blood Urea Nitrogen 10 mg/dL (7-17); Calcium 9.3 mg/dL (8.4-10.2); Carbon Dioxide 29 mmol/L (22-30); Chloride 104 mmol/L (98-107); Glucose 96 mg/dL (74-99); Non-African American GFR(MDRD) >60 (>60 ml/min/1.73 sqM); Potassium 3.5 mmol/L (3.5-5.1); Sodium 143 mmol/L (137-145); Total Bilirubin 0.8 mg/dL (0.2-1.3)
[2016-10-03 16:03] LABS: Partial Thromboplastin Time 24.2 sec (22.0-30.0); Prothrombin Time 10.5 sec (9.0-12.0)
[2016-10-03 16:05] LABS: Creatine Kinase 150 U/L (30-135)
[2016-10-03 16:18] LABS: Troponin I <0.012 ng/mL (0.000-0.034)
[2016-10-03 16:21] LABS: Creatine Kinase MB 2.5 ng/mL (0.0-2.4)
--- NOTE | 2016-10-03 17:26 | XR ---
EXAMINATION TYPE: XR chest 2V DATE OF EXAM: 10/03/2016 COMPARISON: 07/21/2016 HISTORY: Cough TECHNIQUE: Frontal and lateral views of the chest are obtained. FINDINGS: Heart size is normal. There is some bulkiness of the pulmonary blake. There is slight coars ening of interstitial pulmonary markings. There is no pleural effusion. There are chest leads. IMPRESSION: Mild pulmonary fibrotic changes. Bronchial adenopathy. This could relate to sarcoidosis. Lung markings are increased compared to old exam.
[2016-10-03 17:36] VITALS: BP 150/79; PULSE 103; RESP 20; TEMP 97.5
== END 2016-10-03 17:36 | disposition other institution (70) ==
LOC: EC 14:40
DX: J45.901 Unspecified asthma with (acute) exacerbation (principal); Z79.51 Long term (current) use of inhaled steroids; Z79.899 Other long term (current) drug therapy; Z88.0 Allergy status to penicillin
CPT/HCPCS: 96374 ×2; 99285 ×2; 36415; 94644; 93005; 85379; 80053; 82550; 82553; 84484; 85025; 85610; 85730; 71020; J2930

== ENCOUNTER 2016-10-16 12:16 | Day surgery (SDC) | payer OTHER ==
[2016-10-16 13:11] VITALS: TEMP 97.3
--- NOTE | 2016-10-16 14:44 | US ---
EXAMINATION TYPE: US FNA thyroid DATE OF EXAM: 10/16/2016 COMPARISON: NONE HISTORY: Thyroid nodule. Maximal barrier technique was utilized. After informed consent, skin overlying the lesion was locali zed with ultrasound and the overlying skin prepped and draped. Ultrasound was utilized using sterile technique. Lidocaine was used for local anesthesia. Five passes with a 25-gauge needle were made int o the nodule and aspirated specimen was submitted to cytology. Following the procedure hemostasis ac hieved. No immediate complication. The patient discharged in stable condition. IMPRESSION: STATUS POST ULTRASOUND GUIDED FINE NEEDLE ASPIRATION OF THYROID NODULE, PATHOLOGY IS PEND ING. THIS PROCEDURE WAS PERFORMED BY THE UNDERSIGNED.
[2016-10-16 15:14] VITALS: BP 129/76; PULSE 76; RESP 18
== END 2016-10-16 14:25 | disposition home or self-care (01) ==
LOC: RADPROMAIN 12:16
PROVIDERS: ATTEND Otolaryngology
DX: E04.1 Nontoxic single thyroid nodule (principal)
CPT/HCPCS: 10022; 76942; 88173; 88305

== ENCOUNTER → 2016-10-25 | Outpatient (CLI) | payer OTHER | END | disposition home or self-care (01) | LOC: LABWHC1 14:51 | PROVIDERS: ATTEND Otolaryngology | DX: E04.9 Nontoxic goiter, unspecified (principal) | CPT/HCPCS: 36415; 84439; 84443 ==

== ENCOUNTER 2016-11-12 13:38 | Emergency (ER) | payer OTHER ==
[2016-11-12 14:11] VITALS: BP 148/99; PULSE 89; RESP 18; TEMP 100.4
[2016-11-12] MEDS ORDERED: CLINDAMYCIN 150 MG CAP PO STA (15:02)
[2016-11-12] MEDS ORDERED: DIPH,PERTUS(ACELL)TETVAC-LF 0.5 ML VIAL IM ONE (15:02)
--- NOTE | 2016-11-12 15:02 | ED ---
General Adult HPI - General Chief complaint: Wound/Laceration Stated complaint: Poss Galbladder Pain Time Seen by Provider: 11/12/16 14:35 Source: patient, RN notes reviewed Mode of arrival: ambulatory Limitations: no limitations - History of Present Illness Initial comments: chief complaint history of present illness a 61-year-old female here with a complaint of a painful abscess on her armpit. And also possibly infected dog bite lateral lower right leg. The patient reports a friend's dog bit her 19 days ago. Now is red and warm but not draining. Patient's tetanus shot needs to be updated she has ALLERGIES to penicillin. - Related Data Home Medications Medication Instructions Recorded Confirmed Albuterol Inhaler [Ventolin Hfa 1 - 2 puff INHALATION RT-Q6H PRN 05/09/14 Inhaler] Fluticasone/Salmeterol [Advair 1 puff INHALATION RT-BID 05/09/14 11/12/16 500-50 Diskus] Montelukast [Singulair] 10 mg PO HS 05/09/14 11/12/16 amLODIPine [Norvasc] 10 mg PO HS 05/09/14 11/12/16 Albuterol Nebulized [Ventolin 2.5 mg INHALATION RT-Q4H PRN 04/25/16 11/12/16 Nebulized] Previous Rx's Medication Instructions Recorded Ciprofloxacin HCl [Cipro] 500 mg PO Q12HR #14 tablet 11/12/16 Clindamycin [Cleocin] 300 mg PO Q6H #28 capsule 11/12/16 Allergies Allergy/AdvReac Type Severity Reaction Status Date / Time Penicillins Allergy Rash/Hives Verified 11/12/16 14:38 Review of Systems ROS Statement: Those systems with pertinent positive or pertinent negative responses have been documented in the HPI. review of systems temperature 100.4. Pain to the arm. Axillary area with an abscess. No chest pain shows breath GI/ problems. Extremities localized red tender area of the dog bite was on the lateral aspect of her right lower leg. All systems reviewed. Past medical problems asthma, GERD, hypertension, sarcoidosis, pulse on her intestine which led to a bowel resection, also polyps on her vocal cords was removed. She's also had a cholecystectomy. Family history noncontributory ALLERGIES to penicillins. The patient nonsmoker occasional alcohol use. ROS Other: All systems not noted in ROS Statement are negative. Past Medical History Past Medical History: Asthma, GERD/Reflux, Hypertension, Thyroid Disorder Additional Past Medical History / Comment(s): sarcoidosis, thyroid nodule History of Any Multi-Drug Resistant Organisms: None Reported Past Surgical History: Bowel Resection, Cholecystectomy Additional Past Surgical History / Comment(s): EGD, VOCAL CORD POLYPS, right breast polyp, Past Anesthesia/Blood Transfusion Reactions: No Reported Reaction Past Psychological History: No Psychological Hx Reported Smoking Status: Never smoker Past Alcohol Use History: Occasional Past Drug Use History: None Reported - Past Family History Father Family Medical History: Cancer Additional Family Medical History / Comment(s): throat cancer Mother Family Medical History: Musculoskeletal Disorder Additional Family Medical History / Comment(s): knee surgery General Exam - General Exam Comments Initial Comments: General: The patient is awake and alert, in no distress, and does not appear acutely ill. resents with painful abscess on her left axilla and mildly infected dog bite right lower lateral leg. The dog bite was 19 days ago. The small abscess the right axilla is approximately one week. Vital signs temperature 100.4 pulse 89 respiratory rate 18 pulse ox 97% room air blood pressure 148/99 Musculoskeletal: small pointing abscess under left axilla. This was incised and drained using sterile technique. Also a healing dog bite wound right lower leg mild erythema surrounding it no pus noted. Neurological: no neuro deficits. Skin: Skin is warm and dry and no rashes or lesions are noted. Limitations: no limitations Course Vital Signs 11/12/16 14:07 Temperature 100.4 F H Pulse Rate 89 Respiratory 18 Rate Blood Pressure 148/99 O2 Sat by Pulse 97 Oximetry Medical Decision Making - Medical Decision Making medical decision-making. The patient's to check on the help of the dog even thoughit has been for 19 days since the dog bite. The patient will be placed on clindamycin and Cipro because she has ALLERGIES to penicillin. Warm compresses to both her leg and arm pit. Advised follow-up with family physician. Disposition Clinical Impression: Dog bite of right lower leg, Axillary abscess Disposition: HOME SELF-CARE Condition: Fair Instructions: Abscess Incision and Drainage (ED), Animal Bite (ED) Additional Instructions: Apply warm compresses to dog bite site and left armpit. Take medications as directed. Follow-up family physician Prescriptions: Ciprofloxacin HCl [Cipro] 500 mg PO Q12HR #14 tablet Clindamycin [Cleocin] 300 mg PO Q6H #28 capsule Referrals: Gabriele Walsh DO [Primary Care Provider] - 1-2 days Time of Disposition: 15:09
[2016-11-12] MEDS ORDERED: CIPROFLOXACIN HCL 500 MG TAB PO STA (15:03)
== END 2016-11-12 15:34 | disposition home or self-care (01) ==
LOC: EC 13:38
DX: S81.851A Open bite, right lower leg, initial encounter (principal); L02.412 Cutaneous abscess of left axilla; J45.909 Unspecified asthma, uncomplicated; I10 Essential (primary) hypertension; Z23 Encounter for immunization; Z88.0 Allergy status to penicillin; Z79.51 Long term (current) use of inhaled steroids; Z79.899 Other long term (current) drug therapy; W54.0XXA Bitten by dog, initial encounter
CPT/HCPCS: 90471; 90715; 99283

== ENCOUNTER 2016-11-26 11:21 | Emergency (ER) | payer OTHER ==
[2016-11-26 11:38] VITALS: BP 135/76; PULSE 81; RESP 20; TEMP 98.8
--- NOTE | 2016-11-26 11:55 | ED ---
ENT HPI - General Chief complaint: Dental/Oral Stated complaint: FACIAL CYST Time Seen by Provider: 11/26/16 11:41 Source: patient, RN notes reviewed Mode of arrival: ambulatory Limitations: no limitations - History of Present Illness Initial comments: 61-year-old female presented emergency department with chief complaint of facial swelling 2 days. Patient states she has a small sore there that opened up states that there is more swelling there has been some drainage today. Patient denies any fevers or chills no dental pain. Patient has ALLERGY to penicillin. Patient has tried some compresses which are palpable. - Related Data Home Medications Medication Instructions Recorded Confirmed Albuterol Inhaler [Ventolin Hfa 1 - 2 puff INHALATION RT-Q6H PRN 05/09/14 Inhaler] Fluticasone/Salmeterol [Advair 1 puff INHALATION RT-BID 05/09/14 11/12/16 500-50 Diskus] Montelukast [Singulair] 10 mg PO HS 05/09/14 11/12/16 amLODIPine [Norvasc] 10 mg PO HS 05/09/14 11/12/16 Albuterol Nebulized [Ventolin 2.5 mg INHALATION RT-Q4H PRN 04/25/16 11/12/16 Nebulized] Previous Rx's Medication Instructions Recorded Ciprofloxacin HCl [Cipro] 500 mg PO Q12HR #14 tablet 11/12/16 Clindamycin [Cleocin] 300 mg PO Q6H #28 capsule 11/12/16 Sulfamethox-Tmp 800-160Mg [Bactrim 2 each PO Q12HR #56 tab 11/26/16 Ds] Allergies Allergy/AdvReac Type Severity Reaction Status Date / Time Penicillins Allergy Rash/Hives Verified 11/26/16 11:38 Review of Systems ROS Statement: Those systems with pertinent positive or pertinent negative responses have been documented in the HPI. ROS Other: All systems not noted in ROS Statement are negative. Past Medical History Past Medical History: Asthma, GERD/Reflux, Hypertension, Thyroid Disorder Additional Past Medical History / Comment(s): sarcoidosis, thyroid nodule History of Any Multi-Drug Resistant Organisms: None Reported Past Surgical History: Bowel Resection, Cholecystectomy Additional Past Surgical History / Comment(s): EGD, VOCAL CORD POLYPS, right breast polyp, Past Anesthesia/Blood Transfusion Reactions: No Reported Reaction Past Psychological History: No Psychological Hx Reported Smoking Status: Never smoker Past Alcohol Use History: Occasional Past Drug Use History: None Reported - Past Family History Father Family Medical History: Cancer Additional Family Medical History / Comment(s): throat cancer Mother Family Medical History: Musculoskeletal Disorder Additional Family Medical History / Comment(s): knee surgery General Exam Limitations: no limitations General appearance: alert, in no apparent distress ENT exam: Present: mucous membranes moist, other (There is an open sore noted to the left side of the chin there is moderate swelling and induration noted). Absent: normal exam, normal oropharynx (Mild swelling to left side of the lower lip) Neck exam: Present: normal inspection. Absent: tenderness, meningismus, lymphadenopathy Respiratory exam: Present: normal lung sounds bilaterally. Absent: respiratory distress, wheezes, rales, rhonchi, stridor Cardiovascular Exam: Present: regular rate, normal rhythm, normal heart sounds. Absent: systolic murmur, diastolic murmur, rubs, gallop, clicks Neurological exam: Present: alert, oriented X3, CN II-XII intact Skin exam: Present: warm, dry, intact, normal color. Absent: rash Course Vital Signs 11/26/16 11:35 Temperature 98.8 F Pulse Rate 81 Respiratory 20 Rate Blood Pressure 135/76 O2 Sat by Pulse 98 Oximetry Medical Decision Making - Medical Decision Making 7-year-old female presented for facial abscess. Patient was placed on Bactrim 2 tabs daily for 14 days. There is an open area noted consistent need to be opened at this time. Disposition Clinical Impression: Facial abscess Disposition: HOME SELF-CARE Condition: Stable Instructions: Abscess (ED) Additional Instructions: Please return to the Emergency Department if symptoms worsen or any other concerns. Prescriptions: Sulfamethox-Tmp 800-160Mg [Bactrim Ds] 2 each PO Q12HR #56 tab Referrals: Gabriele Walsh DO [Primary Care Provider] - 1-2 days Time of Disposition: 11:54
== END 2016-11-26 12:08 | disposition home or self-care (01) ==
LOC: EC 11:21
DX: L02.01 Cutaneous abscess of face (principal); J45.909 Unspecified asthma, uncomplicated; I10 Essential (primary) hypertension; Z79.51 Long term (current) use of inhaled steroids; Z79.899 Other long term (current) drug therapy; Z88.0 Allergy status to penicillin
CPT/HCPCS: 99283

== ENCOUNTER 2016-12-13 00:51 | Observation (INO) | payer OTHER ==
[2016-12-13] MEDS ORDERED: IPRATROPIUM-ALBUTEROL 3 ML NEB INHALATION STA ×2 (01:06→02:11)
[2016-12-13] MEDS ORDERED: methylPREDNISolone SOD SUCCI 125 MG/2 ML VIAL IV STA (01:08)
--- NOTE | 2016-12-13 01:13 | ED ---
General Adult HPI - General Chief complaint: Shortness of Breath Stated complaint: ANTONIA Time Seen by Provider: 12/13/16 01:06 Source: patient, RN notes reviewed Mode of arrival: wheelchair Limitations: no limitations - History of Present Illness Initial comments: Patient 61-year-old female significant past medical history for asthma, who presents emergency room today with chief complaint of exacerbation of her asthma over the last couple weeks. She states is been slowly getting worse. She states she's tried treatments at home for little relief. She does admit some increased chest tightness. She denies any other complaints or associated symptoms. Patient denies any recent fever, chills, back pain, abdominal pain, nausea or vomiting, numbness or tingling, dysuria or hematuria, constipation or diarrhea, headaches or visual changes, or any other complaints. - Related Data Home Medications Medication Instructions Recorded Confirmed Albuterol Inhaler [Ventolin Hfa 1 - 2 puff INHALATION RT-Q6H PRN 05/09/14 Inhaler] Fluticasone/Salmeterol [Advair 1 puff INHALATION RT-BID 05/09/14 12/13/16 500-50 Diskus] Montelukast [Singulair] 10 mg PO HS 05/09/14 12/13/16 amLODIPine [Norvasc] 10 mg PO HS 05/09/14 12/13/16 Albuterol Nebulized [Ventolin 2.5 mg INHALATION RT-Q4H PRN 04/25/16 12/13/16 Nebulized] Previous Rx's Medication Instructions Recorded Sulfamethox-Tmp 800-160Mg [Bactrim 2 each PO Q12HR #56 tab 11/26/16 Ds] Allergies Allergy/AdvReac Type Severity Reaction Status Date / Time Penicillins Allergy Rash/Hives Verified 12/13/16 00:59 Review of Systems ROS Statement: Those systems with pertinent positive or pertinent negative responses have been documented in the HPI. ROS Other: All systems not noted in ROS Statement are negative. Past Medical History Past Medical History: Asthma, GERD/Reflux, Hypertension, Thyroid Disorder Additional Past Medical History / Comment(s): sarcoidosis, thyroid nodule History of Any Multi-Drug Resistant Organisms: None Reported Past Surgical History: Bowel Resection, Cholecystectomy Additional Past Surgical History / Comment(s): EGD, VOCAL CORD POLYPS, right breast polyp, Past Anesthesia/Blood Transfusion Reactions: No Reported Reaction Past Psychological History: No Psychological Hx Reported Smoking Status: Never smoker Past Alcohol Use History: Occasional Past Drug Use History: None Reported - Past Family History Father Family Medical History: Cancer Additional Family Medical History / Comment(s): throat cancer Mother Family Medical History: Musculoskeletal Disorder Additional Family Medical History / Comment(s): knee surgery General Exam - General Exam Comments Initial Comments: General: The patient is awake and alert, in no distress, and does not appear acutely ill. Eye: Pupils are equal, round and reactive to light, extra-ocular movements are intact. No nystagmus. There is normal conjunctiva bilaterally. No signs of icterus. Ears, nose, mouth and throat: There are moist mucous membranes and no oral lesions. Neck: The neck is supple, there is no tenderness or JVD. Cardiovascular: There is a regular rate and rhythm. No murmur, rub or gallop is appreciated. Respiratory: Lungs are clear to auscultation, respirations are non-labored, breath sounds are equal. No wheezes, stridor, rales, or rhonchi. Gastrointestinal: Soft, non-distended, non-tender abdomen without masses or organomegaly noted. There is no rebound or guarding present. No CVA tenderness. Bowel sounds are unremarkable. Musculoskeletal: Normal ROM, no tenderness. Strength 5/5. Sensation intact. Pulses equal bilaterally 2+. Neurological: A&O x 3. CN II-XII intact, There are no obvious motor or sensory deficits. Coordination appears grossly intact. Speech is normal. Skin: Skin is warm and dry and no rashes or lesions are noted. Psychiatric: Cooperative, appropriate mood & affect, normal judgment. Limitations: no limitations Course Vital Signs 12/13/16 12/13/16 12/13/16 00:56 01:27 01:42 Temperature 98.7 F Pulse Rate 94 96 96 Respiratory 20 Rate Blood Pressure 150/70 O2 Sat by Pulse 94 L Oximetry 12/13/16 12/13/16 12/13/16 02:22 02:38 02:46 Temperature Pulse Rate 92 96 94 Respiratory 18 Rate Blood Pressure 154/70 O2 Sat by Pulse 94 L Oximetry Medical Decision Making - Medical Decision Making Patient reexamined at this time has had multiple breathing treatments still experiencing some bilateral wheeze. Chest x-ray negative for any acute abnormalities. Pulse ox remains 94% on room air. Patient does admit to some improvement. At this time patient will be admitted continued on IV steroids and breathing treatments. Disposition Clinical Impression: Asthma exacerbation Disposition: ADMITTED IP TO THIS HOSP Condition: Stable Referrals: Gabriele Walsh DO [Primary Care Provider] - 1-2 days Time of Disposition: 03:08
--- NOTE | 2016-12-13 02:46 | XR ---
EXAM: XR Chest, 2 Views CLINICAL HISTORY: Reason: cough TECHNIQUE: Frontal and lateral views of the chest. COMPARISON: 10/03/2016 FINDINGS: There is some bulkiness of the pulmonary blake, unchanged. Slight coarsening of interstitial pulmonary markings, unchanged. There is no pleural effusion. The heart is normal in size. Osseous structures are unchanged and unremarkable. IMPRESSION: Mild pulmonary fibrotic changes, unchanged. Probable bronchial adenopathy, unchanged, which may represent sarcoidosis. Lung markings are unchanged. No significant interval change from prior study.
[2016-12-13] MEDS ORDERED: SODIUM CHLORIDE 0.9% 1,000 ML IV ONE (03:05)
[2016-12-13 03:18] LABS: Basophils # (A) 0.1 k/uL (0-0.2); Basophils % (A) 1 %; CH 27.3; CHCM 31.9; Eosinophils # (A) 0.7 k/uL (0-0.7); Eosinophils % (A) 7 %; HCT 39.3 % (34.0-46.0); HDW 2.55; HGB 12.5 gm/dL (11.4-16.0); Luc # (Auto) 0.09; Luc % (Auto) 1; Lymphocytes # (A) 1.3 k/uL (1.0-4.8); Lymphocytes % (A) 14 %; MCH 27.4 pg (25.0-35.0); MCHC 31.9 g/dL (31.0-37.0); Mean Platelet Volume 8.3; Monocytes # (A) 0.2 k/uL (0-1.0); Monocytes % (A) 2 %; Neutrophils # (A) 7.2 k/uL (1.3-7.7); Neutrophils % (A) 76 %; RBC 4.57 m/uL (3.80-5.40); RDW 13.4 % (11.5-15.5); WBC 9.4 k/uL (3.8-10.6); WBC (Perox) 10.05
[2016-12-13 03:23] LABS: ALT 40 U/L (9-52); AST 25 U/L (14-36); Alkaline Phosphatase 123 U/L (38-126); Anion Gap 9 mmol/L; Blood Urea Nitrogen 16 mg/dL (7-17); Calcium 9.4 mg/dL (8.4-10.2); Carbon Dioxide 24 mmol/L (22-30); Chloride 106 mmol/L (98-107); Glucose 107 mg/dL (74-99); Non-African American GFR(MDRD) >60 (>60 ml/min/1.73 sqM); Potassium 3.8 mmol/L (3.5-5.1); Sodium 139 mmol/L (137-145); Total Bilirubin 0.5 mg/dL (0.2-1.3); Total Protein 7.3 g/dL (6.3-8.2)
[2016-12-13 06:58] LABS: Glucose,Whole Blood 136 mg/dL (75-99)
[2016-12-13] MEDS: IPRATROPIUM-ALBUTEROL 3 ML NEB INHALATION PRN ×3 (07:00→17:04)
[2016-12-13] MEDS: methylPREDNISolone SOD SUCCI 125 MG/2 ML VIAL IV SCH ×3 (08:23→17:58)
[2016-12-13] MEDS: INSULIN LISPRO (humaLOG) 300 UNIT/3 ML VIAL SQ SCH ×4 (08:24→21:01)
[2016-12-13 11:55] LABS: Glucose,Whole Blood 147 mg/dL (75-99)
[2016-12-13 13:23] LABS: Hemoglobin A1C 5.9 % (4.2-6.1)
[2016-12-13 16:59] LABS: Glucose,Whole Blood 125 mg/dL (75-99)
[2016-12-13] MEDS ORDERED: LORATADINE 10 MG TAB PO PRN (18:24)
--- NOTE | 2016-12-13 18:35 | P.HPIM ---
History of Present Illness H&P Date: 12/13/16 Chief Complaint: Short of breath History of presenting complaint: This is a very pleasant [address] Walsh. Also follows with Dr. Sutton from pulmonary for sarcoidosis. Which is in remission. Patient with 3 weeks has been getting increasingly short of breath and wheezing and she thought she could've battled this on her own. Finally decided to come in. Patient is short of breath, wheezing, slight cough with no sputum. Denies any fever. Appetite is maintained. Admitted for the same. GEN.: Tired EYES: None HEENT: None NECK: None RESPIRATORY: As above CARDIOVASCULAR: None GASTROINTESTINAL: None GENITOURINARY: None MUSCULOSKELETAL: None LYMPHATICS: None HEMATOLOGICAL: None PSYCHIATRY: None NEUROLOGICAL: None Past medical history: Asthma, sarcoidosis, GERD, hypertension, thyroid nodule being January Dr. Bryant Past surgical history: Mari section, cholecystectomy, vocal cord polyp, right breast polyp Social history: Does not smoke alcohol rarely, lives with her son Family history: Mother had tumor in the neck recently . VITAL SIGNS: 98.7, 94, 20, 150/70, 94% room air GENERAL: Average built, sitting up, tired appearing. EYES: Pupils equal. Conjunctiva normal. HEENT: External appearance of nose and ears normal, oral cavity grossly normal. NECK: JVD not raised; masses not palpable. HEART: First and second heart sounds are normal; no edema. LUNGS: Respiratory rate increased, diminished breath sounds prolonged expiration and wheezing. ABDOMEN: Soft, nontender, liver spleen not palpable, no masses palpable. LYMPHATICS: No lymph nodes palpable in the axilla and neck. PSYCH: Alert and oriented x3; mood and affect anxiousl. NEUROLOGICAL: Cranial nerves grossly intact; no facial asymmetry, power and sensation grossly intact. Investigations: White count 9.4, hemoglobin 12.5, potassium 3.8, BUN 16, Accu-Cheks noted Chest x-ray-lung markings unchanged Assessment: -Acute moderate obstructive asthma with acute exacerbation -Chronic sarcoidosis in remission -GERD -Essential hypertension -Current nodule being worked up by Dr. Bryant -Obesity BMI 36.0 Plan: Patient started on double his bronchitis IV steroids and inhaled steroids. Home medications are resumed. Dr. Christiansen from pulmonary is consulted. Care was discussed with the patient. Past Medical History Past Medical History: Asthma, GERD/Reflux, Hypertension, Thyroid Disorder Additional Past Medical History / Comment(s): sarcoidosis, thyroid nodule History of Any Multi-Drug Resistant Organisms: None Reported Past Surgical History: Bowel Resection, Cholecystectomy Additional Past Surgical History / Comment(s): EGD, VOCAL CORD POLYPS, right breast polyp Past Anesthesia/Blood Transfusion Reactions: No Reported Reaction Additional Past Anesthesia/Blood Transfusion Reaction / Comment(s): patient has never received a blood transfusion, no reaction to anesthesia Past Psychological History: No Psychological Hx Reported Smoking Status: Never smoker Past Alcohol Use History: Rare Past Drug Use History: None Reported - Past Family History Father Family Medical History: Cancer Additional Family Medical History / Comment(s): throat cancer Mother Family Medical History: Cancer Additional Family Medical History / Comment(s): mother had tumor in her neck, just recently Medications and Allergies Home Medications Medication Instructions Recorded Confirmed Type Albuterol Inhaler [Ventolin Hfa 1 - 2 puff INHALATION RT-Q6H PRN 05/09/14 History Inhaler] Fluticasone/Salmeterol [Advair 1 puff INHALATION RT-BID 05/09/14 12/13/16 History 500-50 Diskus] Montelukast [Singulair] 10 mg PO HS 05/09/14 12/13/16 History amLODIPine [Norvasc] 10 mg PO HS 05/09/14 12/13/16 History Albuterol Nebulized [Ventolin 2.5 mg INHALATION RT-Q4H PRN 04/25/16 12/13/16 History Nebulized] Fexofenadine HCl [Gloria Allergy] 60 mg PO BID PRN 12/13/16 12/13/16 History Lansoprazole [Prevacid] 15 mg PO DAILY 12/13/16 12/13/16 History Multivitamin/Iron/Folic Acid 1 tab PO DAILY 12/13/16 12/13/16 History [Centrum Women Tablet] Sulfamethox-Tmp 800-160Mg [Bactrim 2 tab PO Q12HR 12/13/16 12/13/16 History Ds] Tiotropium [place] [Spiriva] 1 cap INHALATION RT-DAILY 12/13/16 12/13/16 History Allergies Allergy/AdvReac Type Severity Reaction Status Date / Time Penicillins Allergy Rash/Hives Verified 12/13/16 08:08 Results CBC & Chem 7: 12/13/16 03:07 12/13/16 03:07 Thrombosis Risk Factor Assmnt - Choose All That Apply Any of the Below Risk Factors Present?: Yes Each Factor Represents 1 point: Age 41-60 years, Obesity (BMI >25) Other Risk Factors: No Other congenital or acquired thrombophilia - If yes, enter type in comment: No Thrombosis Risk Factor Assessment Total Risk Factor Score: 2 Thrombosis Risk Factor Assessment Level: Low Risk
[2016-12-13] MEDS: IPRATROPIUM-ALBUTEROL 3 ML NEB INHALATION SCH ×2 (20:13→21:07)
[2016-12-13 20:28] LABS: Glucose,Whole Blood 173 mg/dL (75-99)
[2016-12-13] MEDS: MONTELUKAST 10 MG TAB PO SCH (20:32)
[2016-12-13] MEDS: amLODIPine 10 MG TAB PO SCH (20:32)
[2016-12-13] MEDS: ENOXAPARIN 40 MG/0.4 ML SYRINGE SQ SCH (20:32)
[2016-12-13] MEDS: methylPREDNISolone SOD SUCCI 40 MG/ML 1 ML VIAL IV SCH (20:33)
[2016-12-13] MEDS: BUDESONIDE 1 MG/2 ML NEBU INHALATION SCH (21:07)
[2016-12-13] MEDS: PANTOPRAZOLE 40 MG TABLET PO SCH (22:57)
[2016-12-14] MEDS: IPRATROPIUM-ALBUTEROL 3 ML NEB INHALATION SCH ×7 (01:19→23:57)
[2016-12-14] MEDS: methylPREDNISolone SOD SUCCI 40 MG/ML 1 ML VIAL IV SCH ×3 (05:28→16:39)
[2016-12-14 06:30] LABS: Glucose,Whole Blood 118 mg/dL (75-99)
[2016-12-14 06:53] LABS: Basophils % (A) 0 %; CH 28.1; CHCM 31.5; Eosinophils # (A) 0.1 k/uL (0-0.7); Eosinophils % (A) 1 %; HCT 38.7 % (34.0-46.0); HDW 2.49; HGB 11.9 gm/dL (11.4-16.0); Luc # (Auto) 0.09; Luc % (Auto) 1; Lymphocytes # (A) 1.7 k/uL (1.0-4.8); Lymphocytes % (A) 14 %; MCH 27.4 pg (25.0-35.0); MCHC 30.6 g/dL (31.0-37.0); MCV 89.5 fL (80.0-100.0); Mean Platelet Volume 8.7; Monocytes # (A) 0.4 k/uL (0-1.0); Monocytes % (A) 4 %; Neutrophils # (A) 9.5 k/uL (1.3-7.7); Neutrophils % (A) 81 %; RBC 4.33 m/uL (3.80-5.40); RDW 14.5 % (11.5-15.5); WBC 11.8 k/uL (3.8-10.6); WBC (Perox) 12.69
[2016-12-14 07:12] LABS: Anion Gap 7 mmol/L; Blood Urea Nitrogen 15 mg/dL (7-17); Calcium 9.2 mg/dL (8.4-10.2); Carbon Dioxide 26 mmol/L (22-30); Chloride 108 mmol/L (98-107); Glucose 120 mg/dL (74-99); Non-African American GFR(MDRD) >60 (>60 ml/min/1.73 sqM); Potassium 4.5 mmol/L (3.5-5.1); Sodium 141 mmol/L (137-145)
[2016-12-14] MEDS: BUDESONIDE 1 MG/2 ML NEBU INHALATION SCH (07:22)
[2016-12-14] MEDS ORDERED: PANTOPRAZOLE 40 MG TABLET PO SCH (07:30)
[2016-12-14] MEDS: INSULIN LISPRO (humaLOG) 300 UNIT/3 ML VIAL SQ SCH ×4 (08:15→21:35)
[2016-12-14] MEDS: ENOXAPARIN 40 MG/0.4 ML SYRINGE SQ SCH (08:16)
[2016-12-14] MEDS ORDERED: ALBUTEROL NEBULIZED 2.5 MG/3 ML INHALATION PRN (08:23)
[2016-12-14] MEDS: TIOTROPIUM 18 MCG/PUFF INHALER INHALATION SCH (11:36)
[2016-12-14 12:07] LABS: Glucose,Whole Blood 133 mg/dL (75-99)
--- NOTE | 2016-12-14 13:29 | P.CNPUL ---
History of Present Illness Consult date: 12/14/16 Requesting physician: Cain Frias Reason for consult: dyspnea Chief complaint: Shortness of breath, cough, congestion History of present illness: This is a very pleasant 61-year-old female patient who follows with Dr. Walsh as her primary care physician. She has a history of hypertension and gastroesophageal reflux disease. She has has a history of chronic bronchial asthma and sarcoidosis. She follows in our office for the same. She's been maintained on Advair, Spiriva, Singulair and Ventolin. Sarcoidosis has been inactive. She had recently been bitten by a dog and was placed on Bactrim. She then developed a cyst on her lip and thought that may have been a reaction to the Bactrim and was seen by her PCP. In the interim, her breathing had become worse she was more short of breath with chest tightness and congestion and presented to the emergency room yesterday for the same. Her chest x-ray revealed evidence of mild pulmonary fibrotic changes and bronchial adenopathy most likely representing her sarcoidosis. These findings were unchanged compared to previous chest x-ray in September 2016. No acute pulmonary process. She is seen today in consultation on the observation unit. She is awake and alert in no acute distress. She states she is breathing easier today as compared to yesterday. Less chest tightness. She has a dry nonproductive cough. No chills or night sweats. No significant leukocytosis. She is maintaining good O2 saturations in the upper 90s on room air. She's been afebrile. Hemodynamically stable. He been initiated on DuoNeb inhalations, Symbicort, Spiriva, Singulair and IV Solu-Medrol Review of Systems 14 point review of system was conducted. All negative other than as mentioned in the HPI. Past Medical History Past Medical History: Asthma, GERD/Reflux, Hypertension, Thyroid Disorder Additional Past Medical History / Comment(s): sarcoidosis, thyroid nodule History of Any Multi-Drug Resistant Organisms: None Reported Past Surgical History: Bowel Resection, Cholecystectomy Additional Past Surgical History / Comment(s): EGD, VOCAL CORD POLYPS, right breast polyp Past Anesthesia/Blood Transfusion Reactions: No Reported Reaction Additional Past Anesthesia/Blood Transfusion Reaction / Comment(s): patient has never received a blood transfusion, no reaction to anesthesia Past Psychological History: No Psychological Hx Reported Smoking Status: Never smoker Past Alcohol Use History: Rare Past Drug Use History: None Reported - Past Family History Father Family Medical History: Cancer Additional Family Medical History / Comment(s): throat cancer Mother Family Medical History: Cancer Additional Family Medical History / Comment(s): mother had tumor in her neck, just recently Medications and Allergies Home Medications Medication Instructions Recorded Confirmed Type Albuterol Inhaler [Ventolin Hfa 1 - 2 puff INHALATION RT-Q6H PRN 05/09/14 History Inhaler] Fluticasone/Salmeterol [Advair 1 puff INHALATION RT-BID 05/09/14 12/13/16 History 500-50 Diskus] Montelukast [Singulair] 10 mg PO HS 05/09/14 12/13/16 History amLODIPine [Norvasc] 10 mg PO HS 05/09/14 12/13/16 History Albuterol Nebulized [Ventolin 2.5 mg INHALATION RT-Q4H PRN 04/25/16 12/13/16 History Nebulized] Fexofenadine HCl [Gloria Allergy] 60 mg PO BID PRN 12/13/16 12/13/16 History Lansoprazole [Prevacid] 15 mg PO DAILY 12/13/16 12/13/16 History Multivitamin/Iron/Folic Acid 1 tab PO DAILY 12/13/16 12/13/16 History [Centrum Women Tablet] Sulfamethox-Tmp 800-160Mg [Bactrim 2 tab PO Q12HR 12/13/16 12/13/16 History Ds] Tiotropium [place] [Spiriva] 1 cap INHALATION RT-DAILY 12/13/16 12/13/16 History Allergies Allergy/AdvReac Type Severity Reaction Status Date / Time Penicillins Allergy Rash/Hives Verified 12/13/16 08:08 Physical Exam Vitals: Vital Signs Temp Pulse Pulse Resp BP BP Pulse Ox 12/14/16 12:00 77 16 12/14/16 11:46 84 12/14/16 11:33 82 12/14/16 08:00 77 16 12/14/16 07:40 80 12/14/16 07:39 98.1 F 77 16 121/65 96 12/14/16 07:22 82 99 12/14/16 04:00 94 18 12/14/16 00:00 96 18 12/13/16 23:59 97.9 F 98 18 142/67 100 12/13/16 21:26 106 H 12/13/16 21:09 106 H 94 L 12/13/16 20:00 82 18 12/13/16 17:15 100 12/13/16 17:04 104 H 12/13/16 16:00 104 H 18 12/13/16 15:43 98.4 F 104 H 18 144/60 96 Intake and Output 12/13/16 12/14/16 12/14/16 22:59 06:59 14:59 Intake Total 640 596 Balance 640 596 Intake: Oral 640 596 Other: Voiding Method Toilet # Voids 1 2 GENERAL EXAM: Alert, active, comfortable in no apparent distress. HEAD: Normocephalic. EYES: Normal reaction of pupils, equal size. NOSE: Clear with pink turbinates. THROAT: No erythema or exudates. NECK: No masses, no JVD. CHEST: No chest wall deformity. LUNGS: Equal air entry with end expiratory wheeze bilaterally. Diminished. CVS: S1 and S2 normal with no audible murmurs, regular rhythm. ABDOMEN: No hepatosplenomegaly, normal bowel sounds, no guarding or rigidity. SPINE: No scoliosis or deformity SKIN: No rashes CENTRAL NERVOUS SYSTEM: No focal deficits, tone is normal in all 4 extremities. Extremities: There is no peripheral edema. No clubbing. Peripheral pulses are intact. Results - Laboratory Findings CBC and BMP: 12/14/16 06:22 12/14/16 06:22 Abnormal lab findings: Abnormal Labs 12/13/16 12/13/16 12/13/16 03:07 06:56 11:53 WBC MCHC Neutrophils # Chloride Glucose 107 H POC Glucose (mg/dL) 136 H 147 H 12/13/16 12/13/16 12/14/16 16:56 20:27 06:22 WBC 11.8 H MCHC 30.6 L Neutrophils # 9.5 H Chloride Glucose POC Glucose (mg/dL) 125 H 173 H 12/14/16 12/14/16 12/14/16 06:22 06:27 11:49 WBC MCHC Neutrophils # Chloride 108 H Glucose 120 H POC Glucose (mg/dL) 118 H 133 H - Diagnostic Findings Chest x-ray: image reviewed Assessment and Plan Plan: Impression: #1 Acute exacerbation of moderate persistent chronic bronchial asthma. #2 Hypertension, history of. #3 Gastroesophageal reflux disease, history of. Plan: The patient was seen and evaluated by Dr. Christiansen. Her chest x-ray and labs were reviewed. We'll go ahead and treat her for her asthma exacerbation. She is maintained on short acting bronchodilators, Symbicort, IV Solu-Medrol and Singulair. She is on Lovenox for DVT prophylaxis. We will continue to follow and make further recommendations based on her clinical status. Time with Patient: Greater than 30
--- NOTE | 2016-12-14 16:18 | P.PN ---
<Kaylyn Lin - Last Filed: 12/15/16 12:19> Progress Note - Text DATE OF SERVICE: 12/14/2016 PRESENTING COMPLAINT: Short of breath INTERVAL HISTORY: 61-year-old female with a history of sarcoidosis and asthma presented with increasing shortness of breath and wheezing. Slight cough no sputum production. No fever. 12/14/2016: Patient seen in follow-up, sitting up in the bed appears comfortable, does continue to have audible wheezing. Patient ambulatory somewhat in the halls however does have wheezing becomes quickly winded on his exertion. Appetite good, eating 50-75% of her meal, last BM prior to admission. REVIEW OF SYSTEMS: Done for constitutional ,cardiovascular, GI, pulmonary with relevant findings as above. CURRENT MEDICATIONS DuoNeb's, Lovenox, Claritin, Solu-Medrol, Singulair, Protonix, Spiriva. PHYSICAL EXAM VITAL SIGNS: Temperature 98.1, pulse 77, respiratory rate 16, blood pressure 121/65, oxygen saturation 96% on room air. GENERAL APPEARANCE: Sitting up in the bed not in distress. EYES: Pupils equal. Conjunctiva normal. NECK: JVD not raised. Mass not palpable. RESPIRATORY: Respiratory effort increased. Lungs diminished with wheezing on auscultation. CARDIOVASCULAR: First and second sounds normal. No edema. ABDOMEN: Soft. Liver and spleen not palpable. No tenderness. No mass palpable. PSYCHIATRY: Alert and oriented x3. Mood and affect normal. INVESTIGATIONS: White blood cell count 11.8, Accu-Cheks noted. ASSESSMENT: -Acute moderate obstructive asthma with acute exacerbation -Chronic sarcoidosis in remission -GERD -Essential hypertension -Thyroid nodule being worked up by Dr. Bryant -Obesity BMI 36.0 -Leukocytosis, likely secondary to steroid use PLAN: Continue short acting bronchodilators ,IV steroids and Singulair. Steroids to be titrated down as appropriate based on patient condition. Plan of care discussed with the patient the bedside she is in agreement. We'll follow closely. MEDICAL RECORDS SUPERVISOR statement: Patient was seen and examined by nurse practitioner Kaylyn Lin and all elements of the case discussed with attending Dr. Frias <Cain Frias - Last Filed: 12/15/16 17:02> Progress Note - Text Attending note. Date of service-12/14/2016 This patient was seen and examined by me . Discussed the patient with my nurse practitioner Ms. Lin. Breathing better. still wheezing. Feels a bit tired. Sitting up in bed. Has been in the hallway. On examination: Lungs-increased breath sounds and expiratory wheezing, with some improvement, cardiovascular-first seconds are normal edema Investigations: Potassium 4.5 Assessment and plan: Acute moderate obstructive asthma with acute exacerbation with some improvement. Continue with steroids and bronchodilators. Patient encouraged to ambulate. Follow with pulmonary
[2016-12-14 16:25] VITALS: RESP 18
[2016-12-14 16:57] LABS: Glucose,Whole Blood 111 mg/dL (75-99)
[2016-12-14] MEDS: SYMBICORT 160-4.5 MCG INHALER INHALATION SCH (20:03)
[2016-12-14 20:37] LABS: Glucose,Whole Blood 170 mg/dL (75-99)
[2016-12-14] MEDS: MONTELUKAST 10 MG TAB PO SCH (21:34)
[2016-12-14] MEDS: amLODIPine 10 MG TAB PO SCH (21:34)
[2016-12-14] MEDS: PANTOPRAZOLE 40 MG TABLET PO SCH (21:34)
[2016-12-15] MEDS: methylPREDNISolone SOD SUCCI 40 MG/ML 1 ML VIAL IV SCH ×2 (01:39→09:44)
[2016-12-15] MEDS: IPRATROPIUM-ALBUTEROL 3 ML NEB INHALATION SCH ×3 (03:49→11:42)
[2016-12-15 06:35] LABS: Glucose,Whole Blood 129 mg/dL (75-99)
[2016-12-15 07:26] VITALS: BP 125/61; TEMP 98.6
[2016-12-15 07:46] LABS: Anion Gap 9 mmol/L; Blood Urea Nitrogen 13 mg/dL (7-17); Calcium 9.2 mg/dL (8.4-10.2); Carbon Dioxide 26 mmol/L (22-30); Chloride 106 mmol/L (98-107); Glucose 130 mg/dL (74-99); Non-African American GFR(MDRD) >60 (>60 ml/min/1.73 sqM); Potassium 4.2 mmol/L (3.5-5.1); Sodium 141 mmol/L (137-145)
[2016-12-15] MEDS: TIOTROPIUM 18 MCG/PUFF INHALER INHALATION SCH (08:13)
[2016-12-15] MEDS: SYMBICORT 160-4.5 MCG INHALER INHALATION SCH (08:13)
[2016-12-15] MEDS: INSULIN LISPRO (humaLOG) 300 UNIT/3 ML VIAL SQ SCH ×2 (09:41→13:55)
[2016-12-15] MEDS: ENOXAPARIN 40 MG/0.4 ML SYRINGE SQ SCH (09:44)
--- NOTE | 2016-12-15 11:26 | P.PN ---
Subjective Progress note dated 12/15/2016 This is a 61-year-old black female that sees myself and also my partner. Her primary doctor is Dr. Walsh. She has history of chronic bronchial asthma and quiesced and sarcoidosis. The patient is typically on Ventolin Spiriva Singulair and Advair. She came with an asthma exacerbation. Has a history of hypertension and gastroesophageal reflux disease. Doing much much better today. Feeling better. Likely to be discharged. States that her shortness breath is much improved. Not coughing years much. Not producing any phlegm. Less wheezing. Less tight. No other complaints speak of. Her clinical situation was complicated by a dog bite and possible reaction to an antibiotic. Objective - Vital Signs Vital signs: Vital Signs Temp 98.6 F 12/15/16 07:25 Pulse 88 12/15/16 08:13 Resp 18 12/15/16 04:24 BP 125/61 12/15/16 07:25 Pulse Ox 95 12/15/16 08:13 Intake & Output 12/14/16 12/15/16 12/15/16 18:59 06:59 18:59 Intake Total 1308 236 Output Total 1 1 Balance 1307 -1 236 Intake: Oral 1308 236 Output: Urine 1 1 Other: Voiding Method Toilet Toilet Toilet # Voids 2 1 - Exam No acute distress, oriented 3. HEENT examination grossly unremarkable. Mucous membranes are moist. No oral lesions. Neck supple. Full range of motion. No adenopathy or thyromegaly. Neck veins are flat. Cardiac vascular examination reveals regular rhythm rate. S1-S2 normal. No S3- S4 or murmur. Lungs reveal few scattered inspiratory and expiratory wheezes. She states it is not clear but she is much improved. She is moving much air so adventitious lung sounds are more loud. Abdomen soft bowel sounds are heard. Extremities are intact. No cyanosis clubbing or edema. Skin without rash. Neurologic examination is nonfocal. - Labs CBC & Chem 7: 12/14/16 06:22 12/15/16 07:12 Labs: Abnormal Lab Results - Last 24 Hours (Table) 12/14/16 12/14/16 12/14/16 Range/Units 11:49 16:34 20:30 Glucose (74-99) mg/dL POC Glucose (mg/dL) 133 H 111 H 170 H (75-99) mg/dL 12/15/16 12/15/16 Range/Units 06:33 07:12 Glucose 130 H (74-99) mg/dL POC Glucose (mg/dL) 129 H (75-99) mg/dL Assessment and Plan (1) Sarcoidosis Status: Acute (2) Asthma exacerbation Status: Acute (3) Dyspnea Status: Acute (4) Hypoxia Status: Acute Plan: Plan dated 12/15/2016 The patient should follow up with Dr. Sutton in the office next week. The patient should be discharged home on some oral antibiotics and some oral steroids. She should resume her normal asthma medications. Additional recommendations suggestions are forthcoming. She should take it easy the rest of the week and weekend. If she has any problems. She can call the office and I be glad to see her next week. Dr. Sutton will be able to see her to the week after currently is on-call next week. Either way she should be seen in next 7-14 days. Time with Patient: Less than 30
[2016-12-15 12:00] VITALS: PULSE 84
[2016-12-15 12:11] LABS: Glucose,Whole Blood 114 mg/dL (75-99)
--- NOTE | 2016-12-15 19:45 | P.DS ---
Providers Date of admission: 12/13/16 03:08 Expected date of discharge: 12/15/16 Attending physician: Cain Frias Consults: 12/13/16 18:27 Consult Physician Routine Consulting Provider: Tani Christiansen Consult Reason/Comments: sarcoidosis Do you want consulting provider notified?: Yes Primary care physician: [facility] Course: FINAL DIAGNOSES: -Acute moderate obstructive asthma with acute exacerbation -Chronic sarcoidosis in remission -GERD -Essential hypertension -Thyroid nodule being worked up by Dr. Bryant -Obesity BMI 36.0 -Leukocytosis, likely secondary to steroid use HOSPTIAL COURSE: 61-year-old female with a history of sarcoidosis and asthma presented with increasing shortness of breath and wheezing and was admitted for an acute moderate obstructive asthma with an acute exacerbation.. Started on double dose of bronchodilators, IV steroids and inhaled steroids. Pulmonology was consulted. Patient's breathing improved tolerating her diet and ambulating in the hallways without difficulty. Patient's condition is improved and stabilized and therefore is ready for discharge. PHYSICAL EXAM: CARDIOVASCULAR: First and second sounds noted no edema RESPIRATORY: Respiratory effort mildly increased, diminished breath sounds bilaterally with mild wheezing noted and prolonged expiration. Patient was seen and examined by nurse practitioner Kaylyn Lin in all elements of the case discussed with attending Dr. Frias DISPOSITION: Discharge home to the care of her family Patient Condition at Discharge: Stable Plan - Discharge Summary New Discharge Prescriptions: New predniSONE 10 mg PO DAILY #30 tab Continue Montelukast [Singulair] 10 mg PO HS Fluticasone/Salmeterol [Advair 500-50 Diskus] 1 puff INHALATION RT-BID Albuterol Inhaler [Ventolin Hfa Inhaler] 1 - 2 puff INHALATION RT-Q6H PRN PRN Reason: Shortness Of Breath Or Wheezing amLODIPine [Norvasc] 10 mg PO HS Albuterol Nebulized [Ventolin Nebulized] 2.5 mg INHALATION RT-Q4H PRN PRN Reason: Shortness Of Breath Lansoprazole [Prevacid] 15 mg PO DAILY Multivitamin/Iron/Folic Acid [[place] Women Tablet] 1 tab PO DAILY Fexofenadine HCl [Gloria Allergy] 60 mg PO BID PRN PRN Reason: Allergy Symptoms Tiotropium [place] [Spiriva] 1 cap INHALATION RT-DAILY No Action Sulfamethox-Tmp 800-160Mg [Bactrim Ds] 2 tab PO Q12HR Discharge Medication List Albuterol Inhaler [Ventolin Hfa Inhaler] 1 - 2 puff INHALATION RT-Q6H PRN [History] Fluticasone/Salmeterol [Advair 500-50 Diskus] 1 puff INHALATION RT-BID 05/09/14 [History] Montelukast [Singulair] 10 mg PO HS 05/09/14 [History] amLODIPine [Norvasc] 10 mg PO HS 05/09/14 [History] Albuterol Nebulized [Ventolin Nebulized] 2.5 mg INHALATION RT-Q4H PRN 04/25/16 [ History] Fexofenadine HCl [Gloria Allergy] 60 mg PO BID PRN 12/13/16 [History] Lansoprazole [Prevacid] 15 mg PO DAILY 12/13/16 [History] Multivitamin/Iron/Folic Acid [Centrum Women Tablet] 1 tab PO DAILY 12/13/16 [ History] Sulfamethox-Tmp 800-160Mg [Bactrim Ds] 2 tab PO Q12HR 12/13/16 [History] Tiotropium [place] [Spiriva] 1 cap INHALATION RT-DAILY 12/13/16 [History] predniSONE 10 mg PO DAILY #30 tab 12/15/16 [Rx] Follow up Appointment(s)/Referral(s): Gabriele Walsh DO [Primary Care Provider] - 3 Days Li Sutton MD [STAFF PHYSICIAN] - 01/01/17 10:30 am (Appointment scheduled with Dr. Sutton.) Patient Instructions/Handouts: Moderate and Severe Persistent Asthma (GEN) Discharge Disposition: HOME SELF-CARE
== END 2016-12-15 13:55 | disposition home or self-care (01) ==
LOC: EC 00:51 → 3OBS 03:08
PROVIDERS: ADMIT Hospitalist; ATTEND Hospitalist
DX: J45.901 Unspecified asthma with (acute) exacerbation (principal); K21.9 Gastro-esophageal reflux disease without esophagitis; I10 Essential (primary) hypertension; E07.9 Disorder of thyroid, unspecified; E04.1 Nontoxic single thyroid nodule; D86.9 Sarcoidosis, unspecified; E66.9 Obesity, unspecified; R09.02 Hypoxemia; D72.829 Elevated white blood cell count, unspecified; Z79.899 Other long term (current) drug therapy; Z79.51 Long term (current) use of inhaled steroids; Z88.0 Allergy status to penicillin; Z80.8 Family history of malignant neoplasm of other organs or systems; Z68.36 Body mass index [BMI] 36.0-36.9, adult; W54.0XXD Bitten by dog, subsequent encounter
CPT/HCPCS: 96361 ×2; 96372 ×3; 96376 ×3; 96374; 99285; 36415; 94640 ×6; 94760 ×2; 80053; 80048 ×2; 83036; 85025 ×2; 71020; G0378 ×3; J2920 ×3; J2930; J1650 ×3

== ENCOUNTER 2017-01-10 19:13 | Emergency (ER) | payer OTHER ==
[2017-01-10] MEDS ORDERED: MAGNESIUM SULFATE-D5W PMX 1 GM in DEXTROSE/WATER 1 100ML.BAG IVPB STA (19:56)
[2017-01-10] MEDS ORDERED: IPRATROPIUM-ALBUTEROL 3 ML NEB INHALATION STA ×2 (19:56→21:44)
[2017-01-10] MEDS ORDERED: SODIUM CHLORIDE 0.9% 1,000 ML IV STA (19:56)
[2017-01-10] MEDS ORDERED: methylPREDNISolone SOD SUCCI 125 MG/2 ML VIAL IV STA (19:56)
--- NOTE | 2017-01-10 19:59 | ED ---
General Adult HPI - General Chief complaint: Upper Respiratory Infection Stated complaint: Cough Time Seen by Provider: 01/10/17 19:50 Source: patient, RN notes reviewed Mode of arrival: ambulatory Limitations: no limitations - History of Present Illness Initial comments: This is a 61-year-old female history of asthma states she's had a cough and shortness of breath the past 2 weeks. She coughs very low phlegm she has had no fevers chills or sweats she does have a scratchy feeling to the front of her chest with no overt chest pain otherwise. She did try to do treatment at home but without success no earaches she's had scratchy throat no nasal discharge. No other complaints she does have sarcoidosis and does believe she has sarcoid in her lungs. - Related Data Home Medications Medication Instructions Recorded Confirmed Albuterol Inhaler [Ventolin Hfa 1 - 2 puff INHALATION RT-Q6H PRN 05/09/14 Inhaler] Fluticasone/Salmeterol [Advair 1 puff INHALATION RT-BID 05/09/14 01/10/17 500-50 Diskus] Montelukast [Singulair] 10 mg PO HS 05/09/14 01/10/17 amLODIPine [Norvasc] 10 mg PO HS 05/09/14 01/10/17 Tiotropium [place] [Spiriva] 1 cap INHALATION RT-DAILY 12/13/16 01/10/17 Fexofenadine HCl [Gloria Allergy] 180 mg PO DAILY 01/10/17 01/10/17 Ipratropium-Albuterol Nebulize 3 ml INHALATION RT-QID 01/10/17 01/10/17 [Duoneb 0.5 mg-3 mg/3 ml Soln] Multivitamins, Thera [Multivitamin 1 tab PO DAILY 01/10/17 01/10/17 (formulary)] Omeprazole 40 mg PO DAILY 01/10/17 01/10/17 Previous Rx's Medication Instructions Recorded Azithromycin [Zithromax Z-pack] 250 mg PO DIRECTED #6 tab 01/10/17 predniSONE 20 mg PO BID #10 tab 01/10/17 Allergies Allergy/AdvReac Type Severity Reaction Status Date / Time Penicillins Allergy Rash/Hives Verified 01/10/17 20:34 Review of Systems ROS Statement: Those systems with pertinent positive or pertinent negative responses have been documented in the HPI. ROS Other: All systems not noted in ROS Statement are negative. Past Medical History Past Medical History: Asthma, GERD/Reflux, Hypertension, Thyroid Disorder Additional Past Medical History / Comment(s): sarcoidosis, thyroid nodule History of Any Multi-Drug Resistant Organisms: None Reported Past Surgical History: Bowel Resection, Cholecystectomy Additional Past Surgical History / Comment(s): EGD, VOCAL CORD POLYPS, right breast polyp Past Anesthesia/Blood Transfusion Reactions: No Reported Reaction Additional Past Anesthesia/Blood Transfusion Reaction / Comment(s): patient has never received a blood transfusion, no reaction to anesthesia Past Psychological History: No Psychological Hx Reported Smoking Status: Never smoker Past Alcohol Use History: Rare Past Drug Use History: None Reported - Past Family History Father Family Medical History: Cancer Additional Family Medical History / Comment(s): throat cancer Mother Family Medical History: Cancer Additional Family Medical History / Comment(s): mother had tumor in her neck, just recently General Exam - General Exam Comments Initial Comments: This a well-developed well-nourished awake alert oriented 3 female Limitations: no limitations General appearance: alert, anxious Head exam: Present: atraumatic, normocephalic, normal inspection Eye exam: Present: normal appearance, PERRL, EOMI. Absent: scleral icterus, conjunctival injection, periorbital swelling ENT exam: Present: normal exam, mucous membranes moist Neck exam: Present: normal inspection. Absent: tenderness, meningismus, lymphadenopathy Respiratory exam: Present: wheezes, decreased breath sounds, other (More wheezing on the left than the right). Absent: respiratory distress, rales, rhonchi, stridor Cardiovascular Exam: Present: regular rate, normal rhythm, normal heart sounds. Absent: systolic murmur, diastolic murmur, rubs, gallop, clicks GI/Abdominal exam: Present: soft, normal bowel sounds. Absent: distended, tenderness, guarding, rebound, rigid Extremities exam: Present: normal inspection, full ROM, normal capillary refill. Absent: tenderness, pedal edema, joint swelling, calf tenderness Back exam: Present: normal inspection Neurological exam: Present: alert, oriented X3, CN II-XII intact Psychiatric exam: Present: normal affect, normal mood Skin exam: Present: warm, dry, intact, normal color. Absent: rash Course Vital Signs 01/10/17 01/10/17 01/10/17 19:47 20:07 20:16 Temperature 97.9 F Pulse Rate 90 88 84 Respiratory 24 Rate Blood Pressure 144/67 O2 Sat by Pulse 94 L Oximetry 01/10/17 01/10/17 21:51 22:00 Temperature Pulse Rate 75 84 Respiratory Rate Blood Pressure O2 Sat by Pulse Oximetry EKG Findings - EKG Results: EKG: interpreted by VIK, sinus rhythm (Sinus rhythm rate 93 appear of 05 14 QRS duration 98 daily since QTC of 364/452 possible official enlargement no acute ST-T wave changes) Medical Decision Making - Medical Decision Making Patient was reevaluated several occasions she is feeling much improved she has improved aeration and wheezing has improved markedly. Patient does request to go home she'll be discharged with appropriate medication. - Lab Data Result diagrams: 01/10/17 20:20 01/10/17 20:20 Lab Results 01/10/17 01/10/17 01/10/17 Range/Units 20:00 20:20 20:20 WBC 6.8 (3.8-10.6) k/uL RBC 4.65 (3.80-5.40) m/uL Hgb 13.3 (11.4-16.0) gm/dL Hct 39.5 (34.0-46.0) % MCV 85.0 (80.0-100.0) fL MCH 28.5 (25.0-35.0) pg MCHC 33.6 (31.0-37.0) g/dL RDW 13.8 (11.5-15.5) % Plt Count 311 (150-450) k/uL Neutrophils % 41 % Lymphocytes % 30 % Monocytes % 5 % Eosinophils % 21 % Basophils % 1 % Neutrophils # 2.8 (1.3-7.7) k/uL Lymphocytes # 2.0 (1.0-4.8) k/uL Monocytes # 0.3 (0-1.0) k/uL Eosinophils # 1.4 H (0-0.7) k/uL Basophils # 0.1 (0-0.2) k/uL PT (9.0-12.0) sec INR (<1.2) APTT (22.0-30.0) sec D-Dimer 0.39 (<0.60) mg/L FEU Sodium (137-145) mmol/L Potassium (3.5-5.1) mmol/L Chloride (98-107) mmol/L Carbon Dioxide (22-30) mmol/L Anion Gap mmol/L BUN (7-17) mg/dL Creatinine (0.52-1.04) mg/dL Est GFR (MDRD) Af Amer (>60 ml/min/1.73 sqM) Est GFR (MDRD) Non-Af (>60 ml/min/1.73 sqM) Glucose (74-99) mg/dL Calcium (8.4-10.2) mg/dL Magnesium (1.6-2.3) mg/dL Total Bilirubin (0.2-1.3) mg/dL AST (14-36) U/L ALT (9-52) U/L Alkaline Phosphatase (38-126) U/L Total Creatine Kinase 299 H (30-135) U/L CK-MB (CK-2) 2.4 (0.0-2.4) ng/mL CK-MB (CK-2) Rel Index 0.8 Troponin I <0.012 (0.000-0.034) ng/mL NT-Pro-B Natriuret Pep pg/mL Total Protein (6.3-8.2) g/dL Albumin (3.5-5.0) g/dL 01/10/17 01/10/17 01/10/17 Range/Units 20:20 20:20 20:20 WBC (3.8-10.6) k/uL RBC (3.80-5.40) m/uL Hgb (11.4-16.0) gm/dL Hct (34.0-46.0) % MCV (80.0-100.0) fL MCH (25.0-35.0) pg MCHC (31.0-37.0) g/dL RDW (11.5-15.5) % Plt Count (150-450) k/uL Neutrophils % % Lymphocytes % % Monocytes % % Eosinophils % % Basophils % % Neutrophils # (1.3-7.7) k/uL Lymphocytes # (1.0-4.8) k/uL Monocytes # (0-1.0) k/uL Eosinophils # (0-0.7) k/uL Basophils # (0-0.2) k/uL PT 10.3 (9.0-12.0) sec INR 1.0 (<1.2) APTT 24.7 (22.0-30.0) sec D-Dimer (<0.60) mg/L FEU Sodium 141 (137-145) mmol/L Potassium 3.8 (3.5-5.1) mmol/L Chloride 104 (98-107) mmol/L Carbon Dioxide 28 (22-30) mmol/L Anion Gap 9 mmol/L BUN 6 L (7-17) mg/dL Creatinine 0.80 (0.52-1.04) mg/dL Est GFR (MDRD) Af Amer >60 (>60 ml/min/1.73 sqM) Est GFR (MDRD) Non-Af >60 (>60 ml/min/1.73 sqM) Glucose 88 (74-99) mg/dL Calcium 9.4 (8.4-10.2) mg/dL Magnesium 2.0 (1.6-2.3) mg/dL Total Bilirubin 0.4 (0.2-1.3) mg/dL AST 26 (14-36) U/L ALT 31 (9-52) U/L Alkaline Phosphatase 85 (38-126) U/L Total Creatine Kinase (30-135) U/L CK-MB (CK-2) (0.0-2.4) ng/mL CK-MB (CK-2) Rel Index Troponin I (0.000-0.034) ng/mL NT-Pro-B Natriuret Pep 40 pg/mL Total Protein 7.1 (6.3-8.2) g/dL Albumin 4.0 (3.5-5.0) g/dL - Radiology Data Radiology results: report reviewed (I did review the imaging and reports are per his reading no acute findings compared to the previous imaging.), image reviewed Disposition Clinical Impression: Asthmatic bronchitis, Asthma exacerbation Disposition: HOME SELF-CARE Condition: Good Instructions: Wheezing (ED), Bronchospasm (ED) Prescriptions: Azithromycin [Zithromax Z-pack] 250 mg PO DIRECTED #6 tab predniSONE 20 mg PO BID #10 tab Referrals: Gabriele Walsh DO [Primary Care Provider] - 1-2 days
[2017-01-10 20:35] LABS: Basophils # (A) 0.1 k/uL (0-0.2); Basophils % (A) 1 %; CH 27.1; Eosinophils # (A) 1.4 k/uL (0-0.7); HCT 39.5 % (34.0-46.0); HDW 2.94; HGB 13.3 gm/dL (11.4-16.0); Luc # (Auto) 0.14; Luc % (Auto) 2; Lymphocytes % (A) 30 %; MCH 28.5 pg (25.0-35.0); MCHC 33.6 g/dL (31.0-37.0); Mean Platelet Volume 7.9; Monocytes # (A) 0.3 k/uL (0-1.0); Monocytes % (A) 5 %; Neutrophils # (A) 2.8 k/uL (1.3-7.7); Neutrophils % (A) 41 %; RBC 4.65 m/uL (3.80-5.40); RDW 13.8 % (11.5-15.5); WBC 6.8 k/uL (3.8-10.6); WBC (Perox) 6.94
[2017-01-10 20:36] LABS: Eosinophils % (A) 21 %
[2017-01-10 20:42] LABS: Partial Thromboplastin Time 24.7 sec (22.0-30.0); Prothrombin Time 10.3 sec (9.0-12.0)
--- NOTE | 2017-01-10 20:46 | XR ---
EXAMINATION TYPE: XR chest 2V DATE OF EXAM: 01/10/2017 COMPARISON: 12/13/2016 chest x-ray and CT 01/18/2017 HISTORY: Cough, congestion, and wheezing for 2 weeks. History of sarcoidosis. TECHNIQUE: Frontal and lateral views of the chest are obtained. FINDINGS: When compared to the prior radiograph there is no radiographic change. The previously seen bilateral hilar prominence and suggested right paratracheal prominence, accompanied with the scatter ed cicatrizing pulmonary changes, appear unaltered radiographically. There is no new opacity to sugge st bronchopneumonia and there is no evidence of pulmonary edema. The pleural spaces are negative. Car diac silhouette is unremarkable, as are the bones and soft tissues. Note: The CT report suggested consideration of a follow-up study to reassess the left lung base nodul arity seen at that time, can simultaneously follow-up the bilateral hilar prominence. If the CT follo w up is obtained, would recommend it be a CT with contrast - as the prior CT of 01/18/2017 was obtaine d without intravenous contrast and this limited the assessment of the hilar regions. IMPRESSION: NO ACUTE RADIOGRAPHIC PROCESS, DISCUSSED.
[2017-01-10 20:51] LABS: Creatine Kinase 299 U/L (30-135)
[2017-01-10 20:57] LABS: ALT 31 U/L (9-52); AST 26 U/L (14-36); Alkaline Phosphatase 85 U/L (38-126); Blood Urea Nitrogen 6 mg/dL (7-17); Calcium 9.4 mg/dL (8.4-10.2); Carbon Dioxide 28 mmol/L (22-30); Glucose 88 mg/dL (74-99); Non-African American GFR(MDRD) >60 (>60 ml/min/1.73 sqM); Potassium 3.8 mmol/L (3.5-5.1); Sodium 141 mmol/L (137-145); Total Bilirubin 0.4 mg/dL (0.2-1.3); Total Protein 7.1 g/dL (6.3-8.2)
[2017-01-10 20:58] LABS: Anion Gap 9 mmol/L; Chloride 104 mmol/L (98-107)
[2017-01-10 21:05] LABS: Creatine Kinase MB 2.4 ng/mL (0.0-2.4); Troponin I <0.012 ng/mL (0.000-0.034)
[2017-01-10 22:01] VITALS: PULSE 84
[2017-01-10 22:45] VITALS: BP 136/72; RESP 16; TEMP 97.7
== END 2017-01-10 22:44 | disposition home or self-care (01) ==
LOC: EC 19:13
DX: J45.901 Unspecified asthma with (acute) exacerbation (principal); R05 Cough; K21.9 Gastro-esophageal reflux disease without esophagitis; I10 Essential (primary) hypertension; E07.9 Disorder of thyroid, unspecified; Z79.51 Long term (current) use of inhaled steroids; Z79.899 Other long term (current) drug therapy; Z88.0 Allergy status to penicillin
CPT/HCPCS: 36415; 94640 ×2; 93005; 85379; 83880; 80053; 82550; 82553; 83735; 84484; 85025; 85610; 85730; 71020; 99284; 96365; 96375; 96361; J2930; J3475

== ENCOUNTER → 2017-02-07 | Outpatient (CLI) | payer OTHER ==
--- NOTE | 2017-02-08 11:23 | US ---
EXAMINATION TYPE: US thyroid st tissue head/neck DATE OF EXAM: 02/07/2017 COMPARISON: US 2017 08/11/2016 CLINICAL HISTORY: E04.1 Thyroid Nodule. GLAND SIZE: Right Lobe: 3.8 x 1.8 x 1.8 cm. Previous size 3.8 x 1.6 x 1.5 Overall Parenchyma: homogenous Left Lobe: 3.6 x 1.7 x 1.8 cm. Previous size 3.7 x 1.6 x 1.9 Overall Parenchyma: homogeneous Isthmus Thickness: 0.3 cm. Previous size 0.2 cm NODULES RIGHT: # of nodules measured on right: 0 LEFT: # of nodules measured on left: 2 1. 1.8 X 1.0 x 1.1 cm echogenic mixed nodule at the mid /isthmus pole with well-defined margins. This nodule is taller than wide and shows intranodular vascularity. Prior size: 1.9 x 1.3 x 1.5 cm 2. 0.3 X 0.3 x 0.2 cm hypoechoic mixed nodule at the upper mid pole with well-defined margins. This nodule is wider than tall and shows no intranodular vascularity. Prior size: not previously seen ISTHMUS: # of nodules measured in the isthmus: see left lobe Inferior to left thyroid is hyperechoic solid nodule = 0.6 x 0.6 x 0.4 and may be parathyroid nodule. Bilateral neck scanned, no evidence of lymphadenopathy. IMPRESSION: 1. There may be an enlarging nodule within the medial left lobe thyroid
== END | disposition home or self-care (01) ==
LOC: RADUSWWP 15:59
PROVIDERS: ATTEND Otolaryngology
DX: E04.1 Nontoxic single thyroid nodule (principal)
CPT/HCPCS: 76536

== ENCOUNTER → 2017-03-02 | Outpatient (CLI) | payer OTHER ==
--- NOTE | 2017-03-02 13:29 | NM ---
EXAMINATION TYPE: NM parathyroid w/spect DATE OF EXAM: 03/02/2017 COMPARISON: Thyroid ultrasound 02/07/2017 HISTORY: Parathyroid nodule TECHNIQUE: Following administration of 24 mCi Tc99m Sestamibi. Anterior projection images of the neck and chest were obtained 10 minutes and 3 hours post injection. SPECT images of the neck and chest were obtaine d and reconstructed in three axes. FINDINGS: Thyroid tracer washout: Delayed images demonstrate near-complete tracer washout from the thyroid. Parathyroid uptake: None. The delayed images do not demonstrate any focal abnormal persistent uptake in the region of the parathyroid glands to suggest parathyroid adenoma. Normal uptake: There is physiological tracer uptake in the salivary glands and thyroid gland. IMPRESSION: Normal parathyroid imaging study. No evidence for mediastinal uptake to suggest mediastinal parathyro id adenoma
== END | disposition home or self-care (01) ==
LOC: RADNMMAIN 08:19
PROVIDERS: ATTEND Otolaryngology
DX: D35.1 Benign neoplasm of parathyroid gland (principal)
CPT/HCPCS: 78071; A9500

== ENCOUNTER → 2017-06-11 | Outpatient (CLI) | payer OTHER ==
[2017-06-11 16:52] LABS: T4, Free (Free Thyroxine) 1.03 ng/dL (0.78-2.19)
[2017-06-12 01:31] LABS: Vitamin D 25 Hydroxy 13.9 ng/mL (30.0-100.0)
[2017-06-12 01:50] LABS: Parathyroid Hormone Intact 114.4 pg/mL (14.0-72.0)
== END | disposition home or self-care (01) ==
LOC: LABWHC1 15:04
PROVIDERS: ATTEND Nurse Practitioner Family
DX: E04.9 Nontoxic goiter, unspecified (principal); R53.83 Other fatigue
CPT/HCPCS: 36415; 82306; 82310; 82607; 83970; 84439; 84443

== ENCOUNTER → 2017-08-22 | Outpatient (CLI) | payer OTHER ==
--- NOTE | 2017-08-23 08:02 | US ---
EXAMINATION TYPE: US thyroid st tissue head/neck DATE OF EXAM: 08/22/2017 COMPARISON: US and NM CLINICAL HISTORY: E04.1 thyroid nodule. GLAND SIZE: Right Lobe: 4.2 x 1.5 x 1.7 cm Overall Parenchyma: homogenous Left Lobe: 4.0 x 1.8 x 1.5 cm Overall Parenchyma: homogeneous Isthmus Thickness: 0.3 cm NODULES RIGHT: # of nodules measured on right: 1 Small, 2mm cyst lower pole LEFT: # of nodules measured on left: 1 1. 1.8 X 1.1 x 1.0 cm isoechoic partially cystic partially solid nodule at the mid pole with well-d efined margins; This nodule is wider than tall and shows intranodular vascularity. Prior size: 1.8 x 1.0 x 1.1 cm Bilateral neck scanned, no evidence of lymphadenopathy. IMPRESSION: Similar size of the mixed cystic and solid left thyroid nodule in comparison to the prior exam of . Continued surveillance could be performed. Other sub-4 mm cystic appearing nodules are seen bilaterally.
== END | disposition home or self-care (01) ==
LOC: RADUSWWP 15:54
PROVIDERS: ATTEND Otolaryngology
DX: E04.1 Nontoxic single thyroid nodule (principal)
CPT/HCPCS: 76536

== ENCOUNTER 2017-11-15 21:47 | Emergency (ER) | payer OTHER ==
[2017-11-15] MEDS ORDERED: IPRATROPIUM-ALBUTEROL 3 ML NEB INHALATION STA ×2 (22:07→23:14)
[2017-11-15] MEDS ORDERED: methylPREDNISolone SOD SUCCI 125 MG/2 ML VIAL IV STA (22:07)
[2017-11-15] MEDS ORDERED: SODIUM CHLORIDE 0.9% 1,000 ML IV STA (22:07)
--- NOTE | 2017-11-15 22:20 | ED ---
SOB HPI - General Chief Complaint: Shortness of Breath Stated Complaint: SOB Time Seen by Provider: 11/15/17 22:00 Source: patient, RN notes reviewed Mode of arrival: ambulatory Limitations: no limitations - History of Present Illness Initial Comments: This is a 62-year-old female history of asthma states she's had asthma and some chest discomfort over last couple days. Cough no fevers chills sweats or phlegm production. She states this is somewhat better with her home medications but has been recurring. She has no other complaints at this time no other modifying factors MD Complaint: shortness of breath, cough - Related Data Home Medications Medication Instructions Recorded Confirmed Albuterol Inhaler [Ventolin Hfa 1 - 2 puff INHALATION RT-Q6H PRN 05/09/14 Inhaler] Fluticasone/Salmeterol [Advair 1 puff INHALATION RT-BID 05/09/14 11/15/17 500-50 Diskus] Montelukast [Singulair] 10 mg PO HS 05/09/14 11/15/17 amLODIPine [Norvasc] 10 mg PO HS 05/09/14 11/15/17 Tiotropium [place] [Spiriva] 1 cap INHALATION RT-DAILY 12/13/16 11/15/17 Ipratropium-Albuterol Nebulize 3 ml INHALATION RT-QID 01/10/17 11/15/17 [Duoneb 0.5 mg-3 mg/3 ml Soln] Levocetirizine Dihydrochloride 5 mg PO DAILY PRN 11/15/17 11/15/17 [Xyzal] Loratadine [Alavert] 10 mg PO DAILY PRN 11/15/17 11/15/17 Previous Rx's Medication Instructions Recorded methylPREDNISolone Dose Pack 4 mg PO DIRECTED #21 package 11/15/17 [Medrol Dose Pack] Allergies Allergy/AdvReac Type Severity Reaction Status Date / Time Penicillins Allergy Rash/Hives Verified 11/15/17 22:06 Review of Systems ROS Statement: Those systems with pertinent positive or pertinent negative responses have been documented in the HPI. ROS Other: All systems not noted in ROS Statement are negative. Past Medical History Past Medical History: Asthma, GERD/Reflux, Hypertension, Thyroid Disorder Additional Past Medical History / Comment(s): sarcoidosis, thyroid nodule History of Any Multi-Drug Resistant Organisms: None Reported Past Surgical History: Bowel Resection, Cholecystectomy Additional Past Surgical History / Comment(s): EGD, VOCAL CORD POLYPS, right breast polyp Past Anesthesia/Blood Transfusion Reactions: No Reported Reaction Additional Past Anesthesia/Blood Transfusion Reaction / Comment(s): patient has never received a blood transfusion, no reaction to anesthesia Past Psychological History: No Psychological Hx Reported Smoking Status: Never smoker Past Alcohol Use History: Rare Past Drug Use History: None Reported - Past Family History Father Family Medical History: Cancer Additional Family Medical History / Comment(s): throat cancer Mother Family Medical History: Cancer Additional Family Medical History / Comment(s): mother had tumor in her neck, just recently General Exam - General Exam Comments Initial Comments: This is a well-developed well-nourished awake alert oriented 3 female Limitations: no limitations General appearance: alert, anxious, in distress Head exam: Present: atraumatic, normocephalic, normal inspection Eye exam: Present: normal appearance, PERRL, EOMI. Absent: scleral icterus, conjunctival injection, periorbital swelling ENT exam: Present: normal exam, mucous membranes moist Neck exam: Present: normal inspection. Absent: tenderness, meningismus, lymphadenopathy Respiratory exam: Present: wheezes, decreased breath sounds. Absent: respiratory distress, rales, rhonchi, stridor Cardiovascular Exam: Present: normal rhythm, tachycardia, normal heart sounds. Absent: systolic murmur, diastolic murmur, rubs, gallop, clicks GI/Abdominal exam: Present: soft, normal bowel sounds. Absent: distended, tenderness, guarding, rebound, rigid Extremities exam: Present: normal inspection, full ROM, normal capillary refill. Absent: tenderness, pedal edema, joint swelling, calf tenderness Back exam: Present: normal inspection Neurological exam: Present: alert, oriented X3, CN II-XII intact Psychiatric exam: Present: normal affect, normal mood Skin exam: Present: warm, dry, intact, normal color. Absent: rash Course Vital Signs 11/15/17 11/15/17 11/15/17 21:51 22:15 22:25 Temperature 98.3 F Pulse Rate 113 H 108 H 103 H Respiratory 26 H Rate Blood Pressure 180/108 O2 Sat by Pulse 93 L Oximetry 11/15/17 11/15/17 11/15/17 22:32 22:46 23:18 Temperature Pulse Rate 100 92 Respiratory 20 20 Rate Blood Pressure 169/95 O2 Sat by Pulse 95 Oximetry Medical Decision Making - Medical Decision Making Patient did get improvement after the updraft she'll be discharged home with a steroid Dosepak she does have adequate other medication at home. The presentation is consistent with an asthma exacerbation - Lab Data Result diagrams: 11/15/17 22:30 11/15/17 22:30 Lab Results 11/15/17 11/15/17 11/15/17 Range/Units 22:30 22:30 22:30 WBC 8.6 (3.8-10.6) k/uL RBC 5.02 (3.80-5.40) m/uL Hgb 13.5 (11.4-16.0) gm/dL Hct 42.8 (34.0-46.0) % MCV 85.3 (80.0-100.0) fL MCH 27.0 (25.0-35.0) pg MCHC 31.6 (31.0-37.0) g/dL RDW 13.5 (11.5-15.5) % Plt Count 287 (150-450) k/uL Neutrophils % 66 % Lymphocytes % 18 % Monocytes % 4 % Eosinophils % 11 % Basophils % 0 % Neutrophils # 5.7 (1.3-7.7) k/uL Lymphocytes # 1.6 (1.0-4.8) k/uL Monocytes # 0.3 (0-1.0) k/uL Eosinophils # 1.0 H (0-0.7) k/uL Basophils # 0.0 (0-0.2) k/uL PT (9.0-12.0) sec INR (<1.2) APTT (22.0-30.0) sec Sodium 142 (137-145) mmol/L Potassium 3.8 (3.5-5.1) mmol/L Chloride 105 (98-107) mmol/L Carbon Dioxide 27 (22-30) mmol/L Anion Gap 10 mmol/L BUN 12 (7-17) mg/dL Creatinine 0.70 (0.52-1.04) mg/dL Est GFR (CKD-EPI)AfAm >90 (>60 ml/min/1.73 sqM) Est GFR (CKD-EPI)NonAf >90 (>60 ml/min/1.73 sqM) Glucose 110 H (74-99) mg/dL Calcium 9.6 (8.4-10.2) mg/dL Magnesium 2.1 (1.6-2.3) mg/dL Total Bilirubin 0.7 (0.2-1.3) mg/dL AST 28 (14-36) U/L ALT 30 (9-52) U/L Alkaline Phosphatase 83 (38-126) U/L Total Creatine Kinase 152 H (30-135) U/L CK-MB (CK-2) 2.4 (0.0-2.4) ng/mL CK-MB (CK-2) Rel Index 1.6 Troponin I <0.012 (0.000-0.034) ng/mL NT-Pro-B Natriuret Pep pg/mL Total Protein 8.0 (6.3-8.2) g/dL Albumin 4.7 (3.5-5.0) g/dL 11/15/17 11/15/17 Range/Units 22:30 22:30 WBC (3.8-10.6) k/uL RBC (3.80-5.40) m/uL Hgb (11.4-16.0) gm/dL Hct (34.0-46.0) % MCV (80.0-100.0) fL MCH (25.0-35.0) pg MCHC (31.0-37.0) g/dL RDW (11.5-15.5) % Plt Count (150-450) k/uL Neutrophils % % Lymphocytes % % Monocytes % % Eosinophils % % Basophils % % Neutrophils # (1.3-7.7) k/uL Lymphocytes # (1.0-4.8) k/uL Monocytes # (0-1.0) k/uL Eosinophils # (0-0.7) k/uL Basophils # (0-0.2) k/uL PT 10.2 (9.0-12.0) sec INR 1.0 (<1.2) APTT 24.3 (22.0-30.0) sec Sodium (137-145) mmol/L Potassium (3.5-5.1) mmol/L Chloride (98-107) mmol/L Carbon Dioxide (22-30) mmol/L Anion Gap mmol/L BUN (7-17) mg/dL Creatinine (0.52-1.04) mg/dL Est GFR (CKD-EPI)AfAm (>60 ml/min/1.73 sqM) Est GFR (CKD-EPI)NonAf (>60 ml/min/1.73 sqM) Glucose (74-99) mg/dL Calcium (8.4-10.2) mg/dL Magnesium (1.6-2.3) mg/dL Total Bilirubin (0.2-1.3) mg/dL AST (14-36) U/L ALT (9-52) U/L Alkaline Phosphatase (38-126) U/L Total Creatine Kinase (30-135) U/L CK-MB (CK-2) (0.0-2.4) ng/mL CK-MB (CK-2) Rel Index Troponin I (0.000-0.034) ng/mL NT-Pro-B Natriuret Pep 52 pg/mL Total Protein (6.3-8.2) g/dL Albumin (3.5-5.0) g/dL - EKG Data -: EKG Interpreted by Me EKG shows normal: sinus rhythm (Sinus tachycardia rate 102. Interval 128 QRS duration 94 daily since QTC 372/[address]-T wave changes) - Radiology Data Radiology results: report reviewed (I did review the imaging and report no acute findings.), image reviewed Disposition Clinical Impression: Asthma exacerbation Disposition: HOME SELF-CARE Condition: Good Instructions: Asthma (ED) Prescriptions: methylPREDNISolone Dose Pack [Medrol Dose Pack] 4 mg PO DIRECTED #21 package Is patient prescribed a controlled substance at d/c from ED?: No Referrals: Gabriele Walsh DO [Primary Care Provider] - 1-2 days
[2017-11-15 22:38] LABS: Basophils % (A) 0 %; Eosinophils % (A) 11 %; HCT 42.8 % (34.0-46.0); HGB 13.5 gm/dL (11.4-16.0); Lymphocytes # (A) 1.6 k/uL (1.0-4.8); Lymphocytes % (A) 18 %; MCHC 31.6 g/dL (31.0-37.0); MCV 85.3 fL (80.0-100.0); Mean Platelet Volume 8.7; Monocytes # (A) 0.3 k/uL (0-1.0); Monocytes % (A) 4 %; Neutrophils # (A) 5.7 k/uL (1.3-7.7); Neutrophils % (A) 66 %; Platelet Count 287 k/uL (150-450); RBC 5.02 m/uL (3.80-5.40); RDW 13.5 % (11.5-15.5); WBC 8.6 k/uL (3.8-10.6)
[2017-11-15 22:49] LABS: Partial Thromboplastin Time 24.3 sec (22.0-30.0); Prothrombin Time 10.2 sec (9.0-12.0)
[2017-11-15 22:50] LABS: ALT 30 U/L (9-52); AST 28 U/L (14-36); Albumin 4.7 g/dL (3.5-5.0); Alkaline Phosphatase 83 U/L (38-126); Anion Gap 10 mmol/L; Blood Urea Nitrogen 12 mg/dL (7-17); Calcium 9.6 mg/dL (8.4-10.2); Carbon Dioxide 27 mmol/L (22-30); Chloride 105 mmol/L (98-107); Glucose 110 mg/dL (74-99); Magnesium 2.1 mg/dL (1.6-2.3); Potassium 3.8 mmol/L (3.5-5.1); Sodium 142 mmol/L (137-145); Total Bilirubin 0.7 mg/dL (0.2-1.3)
[2017-11-15 22:51] LABS: Creatine Kinase 152 U/L (30-135)
--- NOTE | 2017-11-15 23:01 | XR ---
EXAMINATION TYPE: XR chest 2V DATE OF EXAM: 11/15/2017 COMPARISON: NONE HISTORY: Difficulty breathing TECHNIQUE: Frontal and lateral views of the chest are obtained. FINDINGS: There is coarsening of interstitial pulmonary markings. Heart size is normal. There is coa rse density behind the heart in the left lower lobe. There are chest leads. There is some bulkiness o f the pulmonary blake. IMPRESSION: Interstitial fibrotic changes. Mild bronchial adenopathy. No change compared to old exam . This could relate to sarcoidosis. No pulmonary consolidation or heart failure.
[2017-11-15 23:03] LABS: Creatine Kinase MB 2.4 ng/mL (0.0-2.4); Troponin I <0.012 ng/mL (0.000-0.034)
[2017-11-15 23:47] VITALS: BP 177/93; PULSE 100; RESP 18
[2017-11-15 23:51] VITALS: TEMP 97.9
== END 2017-11-15 23:51 | disposition home or self-care (01) ==
LOC: EC 21:47
DX: J45.901 Unspecified asthma with (acute) exacerbation (principal); R00.0 Tachycardia, unspecified; I10 Essential (primary) hypertension; Z79.51 Long term (current) use of inhaled steroids; Z79.899 Other long term (current) drug therapy; Z88.0 Allergy status to penicillin; Z80.2 Family history of malignant neoplasm of other respiratory and intrathoracic organs
CPT/HCPCS: 36415; 94640 ×2; 93005; 83880; 80053; 82550; 82553; 83735; 84484; 85025; 85610; 85730; 71046; 99285; 96374; 96361; J2930

== ENCOUNTER → 2018-02-05 | Outpatient (CLI) | payer OTHER ==
--- NOTE | 2018-02-05 18:56 | ECHOF ---
Referral Reason:R01.1 Cardiac murmur MEASUREMENTS -------- HEIGHT: 162.6 cm WEIGHT: 95.3 kg BP: 144/76 IVSd: 1.2 cm (0.6 - 1.1) LVIDd: 4.6 cm (3.9 - 5.3) LVPWd: 1.2 cm (0.6 - 1.1) IVSs: 1.6 cm LVIDs: 3.1 cm LVPWs: 1.6 cm LA Diam: 3.9 cm (2.7 - 3.8) RVIDd: 3.2 cm (< 3.3) LAESV Index (A-L): 33.42 ml/m Ao Diam: 2.8 cm (2.0 - 3.7) AV Cusp: 2.0 cm (1.5 - 2.6) EPSS: 0.4 cm MV E Duke: 1.08 m/s MV DecT: 292 ms MV A [place]: 1.12 m/s MV E/A Ratio: 0.96 AV maxP.43 mmHg AV meanP.69 mmHg RAP: 5.00 mmHg RVSP: 33.13 mmHg MV EF SLOPE: 20.52 mm/s (70 - 150) MV EXCURSION: 9.11 mm (> 18.000) FINDINGS -------- Sinus rhythm. This was a technically good study. The left ventricular size is normal. There is borderline concentric left ventricular hypertrophy. Overall left ventricular systolic function is normal with, an EF between 60 - 65 %. The right ventricle is normal in size. LA is midly dilated 29-33ml/m2. The right atrium is normal in size. There is mild aortic valve sclerosis. There is mild aortic stenosis present. Peak/mean gradient a cross the Aortic Valve is 25.43mmHg / 13.69mmHg. The mitral valve leaflets are mildly thickened. Mild mitral annular calcification present. Mild tricuspid regurgitation present. Right ventricular systolic pressure is normal at < 35 mmHg. Trace/mild (physiologic) pulmonic regurgitation. The aortic root size is normal. Normal inferior vena cava with normal inspiratory collapse consistent with estimated right atrial pre ssure of 5 mmHg. The inferior vena cava is mildly dilated. There is no pericardial effusion. CONCLUSIONS -------- 1. Sinus rhythm. 2. This was a technically good study. 3. The left ventricular size is normal. 4. There is borderline concentric left ventricular hypertrophy. 5. Overall left ventricular systolic function is normal with, an EF between 60 - 65 %. 6. The right ventricle is normal in size. 7. LA is midly dilated 29-33ml/m2. 8. The right atrium is normal in size. 9. There is mild aortic valve sclerosis. 10. There is mild aortic stenosis present. 11. Peak/mean gradient across the Aortic Valve is 25.43mmHg / 13.69mmHg. 12. The mitral valve leaflets are mildly thickened. 13. Mild mitral annular calcification present. 14. Mild tricuspid regurgitation present. 15. Right ventricular systolic pressure is normal at < 35 mmHg. 16. Trace/mild (physiologic) pulmonic regurgitation. 17. The aortic root size is normal. 18. Normal inferior vena cava with normal inspiratory collapse consistent with estimated right atrial pressure of 5 mmHg. 19. The inferior vena cava is mildly dilated. 20. There is no pericardial effusion. PROOF COIN COLLECTOR: Uma Li RDCS
== END ==
LOC: RADECHMAIN 14:03
PROVIDERS: ATTEND Internal Medicine Critical Care Medicine
DX: I08.2 Rheumatic disorders of both aortic and tricuspid valves (principal); Z88.0 Allergy status to penicillin
CPT/HCPCS: 93306

== ENCOUNTER → 2018-05-28 | Outpatient (CLI) | payer OTHER ==
[2018-05-29 00:52] LABS: Calcium 9.5 mg/dL (8.7-10.3); Vitamin D 25 Hydroxy 15.6 ng/mL (30.0-100.0)
[2018-05-29 01:05] LABS: T4, Free (Free Thyroxine) 1.1 ng/dL (0.80-1.80)
[2018-05-29 01:15] LABS: Parathyroid Hormone Intact 90.3 pg/mL (14.0-72.0)
[2018-05-29 13:45] LABS: Avocado Class CLASS 0; Banana IgE Class CLASS 0; Cow's Milk IgE Class CLASS 0; Egg White IgE <0.35 kU/L (<0.35); Hazelnut IgE <0.35 kU/L (<0.35); Hazelnut IgE Class CLASS 0; Kiwi IgE <0.35 kU/L (<0.35); Peanut IgE <0.35 kU/L (<0.35); Potato IgE <0.35 kU/L (<0.35); Potato IgE Class CLASS 0; Soybean IgE <0.35 kU/L (<0.35)
[2018-05-31 16:55] LABS: Tea IgG 4.2 mcg/mL
[2018-05-31 23:10] LABS: Chocolate IgG <2.0 mcg/mL (< 2.0)
[2018-05-31 23:11] LABS: Banana IgG 4.6 mcg/mL (< 2.0); Crab IgG <2.0 mcg/mL (< 2.0); Orange IgG <2.0 mcg/mL (< 2.0); Walnut IgG <2.0 mcg/mL (< 2.0)
[2018-05-31 23:12] LABS: Apple IgG <2.0 mcg/mL (< 2.0); Celery IgG <2.0 mcg/mL (< 2.0); Chicken Meat IgG <2.0 mcg/mL (< 2.0); Coffee IgG <2.0 mcg/mL (< 2.0); Egg Yolk IgG <2.0 mcg/mL (< 2.0); Oat IgG 2.2 mcg/mL (< 2.0)
[2018-05-31 23:13] LABS: Corn IgG <2.0 mcg/mL (< 2.0); Cow's Milk IgG 49.7 mcg/mL (< 2.0); Peanut IgG <2.0 mcg/mL (< 2.0); Potato IgG <2.0 mcg/mL (< 2.0); Soybean IgG <2.0 mcg/mL (< 2.0); Tomato IgG <2.0 mcg/mL (< 2.0); Wheat IgG <2.0 mcg/mL (< 2.0)
== END | disposition home or self-care (01) ==
LOC: LABWHC1 14:54
PROVIDERS: ATTEND Nurse Practitioner Family
DX: E21.3 Hyperparathyroidism, unspecified (principal); E56.9 Vitamin deficiency, unspecified; L50.0 Allergic urticaria
CPT/HCPCS: 36415; 82306; 82310; 83970; 84439; 84443; 86001; 86003

== ENCOUNTER → 2018-06-21 | Outpatient (CLI) | payer OTHER ==
--- NOTE | 2018-06-21 16:24 | US ---
EXAMINATION TYPE: US thyroid st tissue head/neck DATE OF EXAM: 06/21/2018 COMPARISON: US 2018 CLINICAL HISTORY: E04.1 Thyroid Nodule. Follow up thyroid nodule GLAND SIZE: Right Lobe: 4.2 x 1.5 x 2.0 cm Overall Parenchyma: homogenous Left Lobe: 4.0 x 1.5 x 1.6 cm Overall Parenchyma: homogeneous Isthmus Thickness: 0.2 cm NODULES RIGHT: # of nodules measured on right: 1 1. 2mm cystic nodule seen inferior pole LEFT: # of nodules measured on left: 1 1. 1.9 X 1.5 x 1.7 cm isoechoic mixed nodule at the mid pole with well-defined margins. This nodule is wider than tall and shows intranodular vascularity. Prior size: 1.8 x 1.1 x 1.0 cm ISTHMUS: # of nodules measured in the isthmus: 0 Bilateral neck scanned, no evidence of lymphadenopathy. IMPRESSION: Slight increase in size of a left thyroid lobe nodule.
== END | disposition home or self-care (01) ==
LOC: RADUSWWP 11:11
PROVIDERS: ATTEND Otolaryngology
DX: E04.1 Nontoxic single thyroid nodule (principal)
CPT/HCPCS: 76536

== ENCOUNTER 2018-06-25 12:05 | Emergency (ER) | payer OTHER ==
[2018-06-25] MEDS ORDERED: SODIUM CHLORIDE 0.9% 1,000 ML IV ONE (13:31)
[2018-06-25] MEDS ORDERED: IPRATROPIUM-ALBUTEROL 3 ML NEB INHALATION STA (13:31)
[2018-06-25] MEDS ORDERED: methylPREDNISolone SOD SUCCI 125 MG/2 ML VIAL IV STA (13:32)
[2018-06-25] MEDS ORDERED: SODIUM CHLORIDE 0.9% 1,000 ML IV SCH (13:45)
[2018-06-25 14:20] LABS: Basophils % (A) 0 %; Eosinophils # (A) 0.3 k/uL (0-0.7); Eosinophils % (A) 3 %; HCT 38.4 % (34.0-46.0); HGB 12.1 gm/dL (11.4-16.0); Lymphocytes # (A) 1.8 k/uL (1.0-4.8); Lymphocytes % (A) 16 %; MCH 27.5 pg (25.0-35.0); MCHC 31.6 g/dL (31.0-37.0); MCV 87.3 fL (80.0-100.0); Mean Platelet Volume 7.9; Monocytes # (A) 0.7 k/uL (0-1.0); Monocytes % (A) 7 %; Neutrophils # (A) 8.3 k/uL (1.3-7.7); Neutrophils % (A) 73 %; Platelet Count 245 k/uL (150-450); RDW 13.7 % (11.5-15.5); WBC 11.3 k/uL (3.8-10.6)
[2018-06-25] MEDS ORDERED: ACETAMINOPHEN TAB 500 MG TAB PO STA (14:22)
[2018-06-25] MEDS ORDERED: IBUPROFEN 600 MG TAB PO STA (14:22)
[2018-06-25 14:25] LABS: Albumin 3.5 g/dL (3.5-5.0); Calcium 8.9 mg/dL (8.4-10.2); Potassium 3.5 mmol/L (3.5-5.1); Total Bilirubin 1.4 mg/dL (0.2-1.3); Total Protein 6.6 g/dL (6.3-8.2)
--- NOTE | 2018-06-25 14:40 | ED ---
Fever HPI - General Chief Complaint: Fever Stated Complaint: Fever Time Seen by Provider: 06/25/18 13:18 Source: patient, RN notes reviewed, old records reviewed Mode of arrival: wheelchair Limitations: no limitations - History of Present Illness Initial Comments: Patient is a 63-year-old female with a history of sarcoidosis presents emergency department today with complaints of fevers chills, bodyaches. She complains of cough and congestion. Patient states that her cough is productive. She's been having low-grade fevers. No recent Motrin or Tylenol. 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 No history of sick contacts that she is aware of. - Related Data Home Medications Medication Instructions Recorded Confirmed Albuterol Inhaler [Ventolin Hfa 1 - 2 puff INHALATION RT-Q6H PRN 05/09/14 Inhaler] Fluticasone/Salmeterol [Advair 1 puff INHALATION RT-BID 05/09/14 06/25/18 500-50 Diskus] Montelukast [Singulair] 10 mg PO HS 05/09/14 06/25/18 amLODIPine [Norvasc] 10 mg PO DAILY 05/09/14 06/25/18 Tiotropium [place] [Spiriva] 1 cap INHALATION RT-DAILY 12/13/16 06/25/18 Ipratropium-Albuterol Nebulize 3 ml INHALATION RT-QID 01/10/17 06/25/18 [Duoneb 0.5 mg-3 mg/3 ml Soln] Levocetirizine Dihydrochloride 5 mg PO DAILY PRN 11/15/17 06/25/18 [Xyzal] Ergocalciferol [Vitamin D2] 50,000 unit PO SA 06/25/18 06/25/18 Triamcinolone Acetonide [Nasacort] 1 spray EA NOSTRIL DAILY 06/25/18 06/25/18 Previous Rx's Medication Instructions Recorded Azithromycin [Zithromax Z-pack] 250 mg PO DIRECTED #6 tab 06/25/18 predniSONE 50 mg PO DAILY #5 tab 06/25/18 Allergies Allergy/AdvReac Type Severity Reaction Status Date / Time Penicillins Allergy Rash/Hives Verified 06/25/18 14:09 Review of Systems ROS Statement: Those systems with pertinent positive or pertinent negative responses have been documented in the HPI. ROS Other: All systems not noted in ROS Statement are negative. Past Medical History Past Medical History: Asthma, GERD/Reflux, Hypertension, Thyroid Disorder Additional Past Medical History / Comment(s): sarcoidosis, thyroid nodule History of Any Multi-Drug Resistant Organisms: None Reported Past Surgical History: Bowel Resection, Cholecystectomy Additional Past Surgical History / Comment(s): EGD, VOCAL CORD POLYPS, right breast polyp Past Anesthesia/Blood Transfusion Reactions: No Reported Reaction Additional Past Anesthesia/Blood Transfusion Reaction / Comment(s): patient has never received a blood transfusion, no reaction to anesthesia Past Psychological History: No Psychological Hx Reported Smoking Status: Never smoker Past Alcohol Use History: Rare Past Drug Use History: None Reported - Past Family History Father Family Medical History: Cancer Additional Family Medical History / Comment(s): throat cancer Mother Family Medical History: Cancer Additional Family Medical History / Comment(s): mother had tumor in her neck, just recently General Exam - General Exam Comments Initial Comments: Patient's a 63 year-old female. Alert and oriented 3. No distress. Limitations: no limitations General appearance: alert, in no apparent distress Head exam: Present: atraumatic, normocephalic, normal inspection Eye exam: Present: normal appearance, PERRL, EOMI. Absent: scleral icterus, conjunctival injection, periorbital swelling ENT exam: Present: normal exam, mucous membranes moist Neck exam: Present: normal inspection. Absent: tenderness, meningismus, lymphadenopathy Respiratory exam: Present: wheezes (Patient has minimal wheezing noted.). Absent: normal lung sounds bilaterally, respiratory distress, rales, rhonchi, stridor Cardiovascular Exam: Present: regular rate, normal rhythm, normal heart sounds. Absent: systolic murmur, diastolic murmur, rubs, gallop, clicks GI/Abdominal exam: Present: soft, normal bowel sounds. Absent: distended, tenderness, guarding, rebound, rigid Extremities exam: Present: normal inspection, full ROM, normal capillary refill. Absent: tenderness, pedal edema, joint swelling, calf tenderness Back exam: Present: normal inspection Neurological exam: Present: alert, oriented X3, CN II-XII intact Psychiatric exam: Present: normal affect, normal mood Skin exam: Present: warm, dry, intact, normal color. Absent: rash Course Vital Signs 06/25/18 06/25/18 13:05 13:42 Temperature 99.7 F H Pulse Rate 100 100 Respiratory 16 Rate Blood Pressure 117/64 O2 Sat by Pulse 97 Oximetry Medical Decision Making - Medical Decision Making This Patient is a 63-year-old female presents emergency with fever chills body aches. She has history of sarcoidosis. He does have significant coughing and some wheezing noted. Patient was given DuoNeb treatment and IV steroids. Influenza test is negative at this time. She did arrive to emergency department fever 101. Lab work was initiated. White blood cell count within normal limits. Chest x-ray shows findings consistent with sarcoidosis. No significant pneumonia. She has has continued coughing and wheezing. Patient will be treated for bronchitis with azithromycin and steroids. Discussed close follow-up with her primary care physician and bioinformatics research technician. All questions were answered and return parameters were discussed. - Lab Data Result diagrams: 06/25/18 14:00 06/25/18 14:00 Lab Results 06/25/18 06/25/18 06/25/18 Range/Units 14:00 14:00 14:00 WBC 11.3 H (3.8-10.6) k/uL RBC 4.40 (3.80-5.40) m/uL Hgb 12.1 (11.4-16.0) gm/dL Hct 38.4 (34.0-46.0) % MCV 87.3 (80.0-100.0) fL MCH 27.5 (25.0-35.0) pg MCHC 31.6 (31.0-37.0) g/dL RDW 13.7 (11.5-15.5) % Plt Count 245 (150-450) k/uL Neutrophils % 73 % Lymphocytes % 16 % Monocytes % 7 % Eosinophils % 3 % Basophils % 0 % Neutrophils # 8.3 H (1.3-7.7) k/uL Lymphocytes # 1.8 (1.0-4.8) k/uL Monocytes # 0.7 (0-1.0) k/uL Eosinophils # 0.3 (0-0.7) k/uL Basophils # 0.0 (0-0.2) k/uL Sodium 140 (137-145) mmol/L Potassium 3.5 (3.5-5.1) mmol/L Chloride 105 (98-107) mmol/L Carbon Dioxide 29 (22-30) mmol/L Anion Gap 6 mmol/L BUN 11 (7-17) mg/dL Creatinine 0.97 (0.52-1.04) mg/dL Est GFR (CKD-EPI)AfAm 73 (>60 ml/min/1.73 sqM) Est GFR (CKD-EPI)NonAf 63 (>60 ml/min/1.73 sqM) Glucose 109 H (74-99) mg/dL Calcium 8.9 (8.4-10.2) mg/dL Total Bilirubin 1.4 H (0.2-1.3) mg/dL AST 54 H (14-36) U/L ALT 46 (9-52) U/L Alkaline Phosphatase 89 (38-126) U/L Total Protein 6.6 (6.3-8.2) g/dL Albumin 3.5 (3.5-5.0) g/dL Influenza Type A RNA Not Detected (Not Detectd) Influenza Type B (PCR) Not Detected (Not Detectd) - Radiology Data Radiology results: report reviewed Chest x-rays negative for any acute cardio prominent process. Findings may be due to patient's sarcoidosis. There is prominent interstitial changes noted. Hilar regions are stable prominence. No focal airspace opacity pleural effusion or pneumothorax. Cardiac silhouette is normal. Disposition Clinical Impression: Fever, Bronchitis Disposition: HOME SELF-CARE Condition: Good Instructions (If sedation given, give patient instructions): Fever in Adults ( ED), Acute Bronchitis (ED) Additional Instructions: Patient is a very close follow-up with primary care physician. Patient should return to the emergency department if any alarming signs or symptoms occur. Prescriptions: Azithromycin [Zithromax Z-pack] 250 mg PO DIRECTED #6 tab predniSONE 50 mg PO DAILY #5 tab Is patient prescribed a controlled substance at d/c from ED?: No Referrals: Gabriele Walsh DO [Primary Care Provider] - 1-2 days Time of Disposition: 15:39
--- NOTE | 2018-06-25 15:28 | XR ---
EXAMINATION TYPE: XR chest 2V DATE OF EXAM: 06/25/2018 COMPARISON: Prior chest x-ray 11/15/2017 HISTORY: Fever, cough and body aches TECHNIQUE: Frontal and lateral views of the chest are obtained. FINDINGS: Prominent interstitial changes are again noted. Hilar regions show stable prominence. There is no focal air space opacity, pleural effusion, or pneumothorax seen. The cardiac silhouette size is within normal limits. The osseous structures are intact. Surgical clips are present in the right upper quadrant. There is a mild spinal curvature. IMPRESSION: No acute cardiopulmonary process. Findings may be due to patient's sarcoid.
[2018-06-25 16:14] VITALS: BP 120/78; PULSE 99; RESP 20; TEMP 101.1
== END 2018-06-25 16:10 | disposition home or self-care (01) ==
LOC: EC 12:05
DX: J40 Bronchitis, not specified as acute or chronic (principal); J45.909 Unspecified asthma, uncomplicated; I10 Essential (primary) hypertension; Z79.51 Long term (current) use of inhaled steroids; Z79.899 Other long term (current) drug therapy; Z88.0 Allergy status to penicillin
CPT/HCPCS: 36415; 94640; 80053; 85025; 87502; 71046; 99284; 96374; 96361 ×2; J2930

== ENCOUNTER → 2018-07-25 | Outpatient (CLI) | payer OTHER ==
--- NOTE | 2018-07-26 03:54 | CT ---
EXAMINATION TYPE: CT abdomen w con DATE OF EXAM: 07/25/2018 COMPARISON: 12/24/[address] chest 01/11/2016 HISTORY: 63-year-old female with abdominal pain, liver disease unspecified TECHNIQUE: Contiguous axial scanning of the abdomen following administration of 100 ml Isovue 300 IV contrast. Delayed images through the kidneys and coronal/sagittal reconstructions performed. CT DLP: 1172.10 mGycm Automated exposure control for dose reduction was used. FINDINGS: Heart normal size without pericardial effusion. Mitral annular calcifications are present. Partially visualized fibrosis within the superior lingula. The previously mentioned 6 mm left lower lobe pulmon miguel nodule has resolved. Tiny hiatal hernia. The liver is normal size at 14.5 cm. The previously questioned 1.2 cm hypodensity along the anterior hepatic dome is not identified on this postcontrast exam. Tiny subcentimeter hypodensity peripheral p osterior right liver lobe, axial image 28 is unchanged suggestive of a benign cyst. Portal venous system is patent. No biliary ductal dilatation. Cholecystectomy clips. Adrenal glands, spleen, and pancreas appear within normal limits. Small fatty umbilical hernia measuring 2.1 cm wide. Numerous subcentimeter hypodensities in both kidneys, largest measuring 1.3 cm laterally in the left kidney seems to have been subtly apparent on the noncontrast 12/24/2015 study. All of these lesions are too small for accurate CT characterization and probably represent cysts. Some scattered borderline sized mesenteric lymph nodes measuring up to 6 mm are unchanged. No progres sive abdominal lymphadenopathy. Postsurgical changes of partial ascending colectomy with ileocolonic anastomosis at the upper ascendi ng colon. There is moderate to large stool burden without pericolonic inflammatory change. The pelvis is not imaged. Bones: Facet arthropathy lower lumbar spine. Mild degenerative disc disease lower thoracic spine. IMPRESSION: 1. NORMAL SIZE LIVER. NO SUSPICIOUS LIVER LESION. 2. STATUS POST CHOLECYSTECTOMY. NO BILIARY DUCTAL DILATATION. 3. TINY HIATAL HERNIA AND SMALL FATTY UMBILICAL HERNIA REDEMONSTRATED. PRIOR PARTIAL RIGHT COLON RESE CTION AND ILEOCOLONIC ANASTOMOSIS. MODERATE TO LARGE STOOL BURDEN. 4. NUMEROUS SUBCENTIMETER HYPODENSE LESIONS WITHIN BOTH KIDNEYS TOO SMALL FOR ACCURATE CT CHARACTERIZ ATION, PROBABLE CYSTS. 5. PARTIALLY VISUALIZED KNOWN SUPERIOR LINGULAR FIBROSIS LIKELY CORRESPONDING TO THE PATIENT'S REPORT ED HISTORY OF SARCOIDOSIS ON PRIOR CHEST CT.
== END ==
LOC: RADCTMAIN 14:53
PROVIDERS: ATTEND Family Medicine
DX: K42.9 Umbilical hernia without obstruction or gangrene (principal); K44.9 Diaphragmatic hernia without obstruction or gangrene; N28.9 Disorder of kidney and ureter, unspecified; R19.5 Other fecal abnormalities; Z90.49 Acquired absence of other specified parts of digestive tract
CPT/HCPCS: 74160; Q9967

== ENCOUNTER 2018-09-20 09:13 | Day surgery (SDC) | payer OTHER ==
[2018-09-20 10:00] VITALS: RESP 18; TEMP 97.6
[2018-09-20 12:32] VITALS: BP 141/76; PULSE 85
--- NOTE | 2018-09-20 13:10 | US ---
EXAMINATION TYPE: US FNA thyroid first lesion DATE OF EXAM: 09/20/2018 COMPARISON: 06/21/2018 HISTORY: Thyroid nodule, E04.1 Maximal barrier technique was utilized. Ultrasound using sterile technique. The skin overlying the no dule was localized with ultrasound and the overlying skin prepped and draped. Lidocaine used for loca l anesthesia. 5 passes with a 25-gauge needle were made into the nodule under ultrasound guidance. As pirate specimen submitted to cytology. Following the procedure hemostasis achieved. No immediate comp lication IMPRESSION: Status post ultrasound-guided fine-needle aspiration of left-sided thyroid nodule, pathol ogy pending.
== END 2018-09-20 12:10 | disposition home or self-care (01) ==
LOC: RADPROMAIN 09:13
PROVIDERS: ATTEND Otolaryngology
DX: E04.1 Nontoxic single thyroid nodule (principal)
CPT/HCPCS: 10005; 88173; 88305

== ENCOUNTER → 2019-10-07 | Outpatient (CLI) | payer OTHER ==
[2019-10-07 08:13] LABS: Basophils % (A) 1 %; Eosinophils # (A) 0.6 k/uL (0-0.7); Eosinophils % (A) 11 %; HCT 39.9 % (34.0-46.0); HGB 12.7 gm/dL (11.4-16.0); Hypochromasia Slight; Lymphocytes % (A) 35 %; MCHC 31.9 g/dL (31.0-37.0); MCV 87.7 fL (80.0-100.0); Monocytes # (A) 0.3 k/uL (0-1.0); Monocytes % (A) 6 %; Neutrophils # (A) 2.7 k/uL (1.3-7.7); Neutrophils % (A) 47 %; Platelet Count 270 k/uL (150-450); RBC 4.55 m/uL (3.80-5.40); RDW 13.5 % (11.5-15.5); WBC 5.8 k/uL (3.8-10.6)
[2019-10-07 08:47] LABS: Total Eosinophil Count 638 #EOS/uL (150-300)
[2019-10-07 12:43] LABS: African American GFR (CKD) 90.9 (60.0-200.0); Albumin 4.2 g/dL (3.80-4.90); Albumin/Globulin Ratio 1.62 (1.60-3.17); Anion Gap 7.7 mmol/L (4.00-12.00); Calcium 9.1 mg/dL (8.7-10.3); Carbon Dioxide 28.3 mmol/L (21.6-31.8); Globulin 2.6 g/dL (1.6-3.3); Non-African American GFR(CKD) 78.5 (60.0-200.0); Potassium 3.4 mmol/L (3.5-5.5); Total Bilirubin 0.4 mg/dL (0.3-1.2); Total Protein 6.8 g/dL (6.2-8.2)
== END | disposition home or self-care (01) ==
LOC: LABWHC1 07:28
PROVIDERS: ATTEND Internal Medicine Critical Care Medicine
DX: R05 Cough (principal); T78.40XA Allergy, unspecified, initial encounter
CPT/HCPCS: 36415; 80053; 82164; 82785; 85008; 85025

== ENCOUNTER → 2019-10-18 | Outpatient (CLI) | payer OTHER ==
--- NOTE | 2019-10-19 21:35 | CT ---
EXAMINATION TYPE: CT chest w con DATE OF EXAM: 10/18/2019 COMPARISON: 01/19/2016 HISTORY: 64-year-old female D86.9, Sarcoidosis. TECHNIQUE: Contiguous axial scanning of the chest after the administration of 100ml mL of Isovue 300. Coronal/sagittal reconstructions performed. CT DLP: 503mGycm. Automatic exposure control utilized for a dose reduction. FINDINGS: Heart upper limits of normal in size without pericardial effusion. Aorta normal caliber with bovine configuration to the aortic arch. Some mild soft tissue thickening at the bilateral blake has a chronic appearance, possibly related to the patient's sarcoidosis. Couple small calcified mediastinal lymph nodes are unchanged. Redemonstrated is volume loss and fibrosis within the bilateral upper lobes with reticular, groundgla ss, cystic changes along with some bronchiolectasis. Minimal subpleural nodularity posterior left upper lung is unchanged. Some additional bronchiolectasis at the right hemidiaphragm with associated scarring is unchanged. The previous left basilar nodularity seen in 2016 has resolved. No new consolidation. No pleural effusion. Small hiatal hernia. Visualized upper abdomen shows multiple underlying left renal hypodensities, lik micah cysts. Cholecystectomy clips. Some postsurgical changes along the hepatic flexure of the colon rico ggesting prior colon resection. Stable couple focal calcifications of the left breast. Mild endplate spondylosis midthoracic spine. IMPRESSION: 1. Mild soft tissue thickening at the bilateral blake has a chronic appearance, likely related to the patient's sarcoidosis. 2. Chronic volume loss, reticular and cystic change, and bronchiolectasis of the upper lobes and also at the right base, unchanged from 01/19/2016, likely fibrotic changes related to patient's sarcoidosi s. 3. No convincing evidence of progressive lymphadenopathy or suspicious mass at this time. Note that t here is limitation as the patient's comparison exam was performed without contrast. 4. Small hiatal hernia. Multiple left renal hypodense lesions, probable cysts.
== END | disposition home or self-care (01) ==
LOC: RADCTMAIN 09:56
PROVIDERS: ATTEND Internal Medicine Critical Care Medicine
DX: J47.9 Bronchiectasis, uncomplicated (principal); J98.4 Other disorders of lung; M79.89 Other specified soft tissue disorders; Z88.0 Allergy status to penicillin
CPT/HCPCS: 71260; Q9967

== ENCOUNTER → 2020-02-23 | Outpatient (CLI) | payer OTHER | END | disposition home or self-care (01) | LOC: LABWHC1 09:27 | PROVIDERS: ATTEND Family Medicine | DX: R06.02 Shortness of breath (principal) | CPT/HCPCS: U0003; C9803 ==

== ENCOUNTER 2020-07-19 23:33 | Inpatient (IN) | payer OTHER ==
[2020-07-19] MEDS ORDERED: ALBUTEROL HFA INHALER INHALATION STA (23:55)
[2020-07-19] MEDS ORDERED: SODIUM CHLORIDE 0.9% 1,000 ML IV STA ×2 (23:55)
[2020-07-19] MEDS ORDERED: DEXAMETHASONE SOD PHOSPHATE 10 MG/ML 1 ML VIAL IV STA (23:55)
[2020-07-19] MEDS ORDERED: KETOROLAC 15 MG/ML 1 ML VIAL IVP STA (23:55)
[2020-07-19] MEDS ORDERED: ACETAMINOPHEN TAB 500 MG TAB PO STA (23:55)
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
--- NOTE | 2020-07-20 00:30 | XR ---
EXAMINATION TYPE: XR chest 1V portable DATE OF EXAM: 07/20/2020 COMPARISON: 05/10/2020 HISTORY: Chest pain TECHNIQUE: Single view FINDINGS: There is no heart failure nor confluent pneumonic infiltrate. There is some coarsening of t he interstitial pulmonary markings. There is no pleural effusion. Bony thorax is intact. IMPRESSION: Mild pulmonary fibrotic changes. No acute lung disease. No change compared to old exam.
[2020-07-20 00:42] LABS: Basophils # (A) 0.1 k/uL (0-0.2); Basophils % (A) 1 %; Eosinophils # (A) 1.1 k/uL (0-0.7); Eosinophils % (A) 12 %; HCT 39.5 % (34.0-46.0); HGB 13.1 gm/dL (11.4-16.0); Lymphocytes # (A) 1.8 k/uL (1.0-4.8); Lymphocytes % (A) 20 %; MCH 28.8 pg (25.0-35.0); MCHC 33.2 g/dL (31.0-37.0); MCV 86.6 fL (80.0-100.0); Mean Platelet Volume 9.7; Monocytes # (A) 0.5 k/uL (0-1.0); Monocytes % (A) 6 %; Neutrophils # (A) 5.4 k/uL (1.3-7.7); Neutrophils % (A) 60 %; Platelet Count 263 k/uL (150-450); RBC 4.56 m/uL (3.80-5.40); RDW 13.7 % (11.5-15.5)
[2020-07-20 00:50] LABS: D-Dimer 0.29 mg/L FEU (<0.60); INR 0.9 (<1.2); Partial Thromboplastin Time 24.7 sec (22.0-30.0); Prothrombin Time 9.9 sec (9.0-12.0)
[2020-07-20 00:55] LABS: Albumin 4.6 g/dL (3.5-5.0); C Reactive Protein 7.8 mg/L (<10.0); Calcium 9.5 mg/dL (8.4-10.2); Magnesium 2.2 mg/dL (1.6-2.3); Potassium 3.7 mmol/L (3.5-5.1); Total Bilirubin 0.5 mg/dL (0.2-1.3); Total Protein 8.1 g/dL (6.3-8.2)
[2020-07-20] MEDS ORDERED: methylPREDNISolone SOD SUCCI 125 MG/2 ML VIAL IV STA (00:56)
[2020-07-20] MEDS ORDERED: IPRATROPIUM-ALBUTEROL 3 ML NEB INHALATION PRN (00:56)
[2020-07-20] MEDS: SODIUM CHLORIDE 0.9% 1,000 ML IV SCH (02:26)
[2020-07-20] MEDS: methylPREDNISolone SOD SUCCI 125 MG/2 ML VIAL IV SCH ×4 (07:30→22:53)
[2020-07-20] MEDS: BUDESONIDE 1 MG/2 ML NEBU INHALATION SCH ×2 (08:23→20:04)
[2020-07-20] MEDS: IPRATROPIUM-ALBUTEROL 3 ML NEB INHALATION SCH ×4 (08:24→20:04)
--- NOTE | 2020-07-20 12:13 | P.HPIM ---
History of Present Illness This is a pleasant 65 years old female with past medical history of asthma, hypertension or hypothyroidism, sarcoidosis,bronchitis and seasonal ALLERGIES, gastric ulcer. She is a patient of Dr. Walsh and our [facility]. Presents because of dyspnea. Her dyspnea was started more than 5-7 days ago associated with worsening dry cough but no chest pain or diarrhea or urinary complaints. No fever. She denies smoking, alcohol or illicit drugs. She drinks alcohol occasionally She has a daughter who about 2 months ago On admission she was tachypneic around 28 breaths per minute and tachycardic 111 and saturating 90% on room air. Currently saturation is 96% on 3 L oxygen. And presented at 16. Patient is afebrile. Labs are unremarkable including CBC, INR 0.9, BMP and liver enzymes. Carbon dioxide is elevated at 33, d-dimer is negative as 0.29 Coronavirus not detected Chest x-ray: No acute process. Mild pulmonary fibrotic changes EKG showing normal sinus rhythm at 100/m with no significant ST-T changes. An emergency room patient received Solu-Medrol 60 mg and some normal saline IV fluids which is a stop now. Review of Systems CONSTITUTIONAL: No fever, no malaise, no fatigue. HEENT: No recent visual problems or hearing problems. Denied any sore throat. CARDIOVASCULAR: No orthopnea, PND, no palpitations, no syncope. PULMONARY: No chest wall tenderness, no hemoptysis. GASTROINTESTINAL: No diarrhea, no nausea, no vomiting, no abdominal pain. Normoactive bowel sounds. NEUROLOGICAL: No headaches, no weakness, no numbness. HEMATOLOGICAL: Denies any bleeding or petechiae. GENITOURINARY: Denies any burning micturition, frequency, or urgency. MUSCULOSKELETAL/RHEUMATOLOGICAL: Denies any joint pain, swelling, or any muscle pain. ENDOCRINE: Denies any polyuria or polydipsia. Past Medical History Past Medical History: Asthma, GERD/Reflux, Hypertension, Pneumonia, Respiratory Disorder, Thyroid Disorder Additional Past Medical History / Comment(s): Sarcoidosis, SOB with activity, bronchitis, seasonal allergies, murmur, benign thyroid nodule, gastric ulcer, H pylori History of Any Multi-Drug Resistant Organisms: None Reported Past Surgical History: Bowel Resection, Breast Surgery, Cholecystectomy Additional Past Surgical History / Comment(s): Bowel resection d/t multiple benign polyps, EGD/colonoscopy, benign vocal cord polyp removed, R breast benign polypectomy, thyroid biopsy Past Anesthesia/Blood Transfusion Reactions: No Reported Reaction Additional Past Anesthesia/Blood Transfusion Reaction / Comment(s): patient has never received a blood transfusion, no reaction to anesthesia Smoking Status: Never smoker - Past Family History Father Family Medical History: Cancer Additional Family Medical History / Comment(s): throat cancer Mother Family Medical History: Cancer Additional Family Medical History / Comment(s): Mother had neck cancer. She is . Medications and Allergies Home Medications Medication Instructions Recorded Confirmed Type Montelukast [Singulair] 10 mg PO HS 05/09/14 07/20/20 History Tiotropium [place] [Spiriva] 1 cap INHALATION RT-DAILY 12/13/16 07/20/20 History Ipratropium-Albuterol Nebulize 3 ml INHALATION RT-QID PRN 01/10/17 07/20/20 History [Duoneb 0.5 mg-3 mg/3 ml Soln] Triamcinolone Acetonide [Nasacort] 1 spray EA NOSTRIL DAILY 06/25/18 07/20/20 History Cetirizine HCl [Zyrtec] 10 mg PO DAILY 07/20/20 07/20/20 History Fluticasone/Vilanterol [Breo 1 puff INHALATION RT-DAILY 07/20/20 07/20/20 Histo ry Ellipta 200-25 Mcg INH] Losartan Potassium [Cozaar] 50 mg PO DAILY 07/20/20 07/20/20 History amLODIPine [Norvasc] 5 mg PO DAILY 07/20/20 07/20/20 History lisinopriL [Zestril] 5 mg PO DAILY 07/20/20 07/20/20 History Allergies Allergy/AdvReac Type Severity Reaction Status Date / Time Penicillins Allergy Rash/Hives Verified 07/20/20 08:42 Physical Exam Vitals: Vital Signs Temp Pulse Pulse Resp BP BP Pulse Ox 07/20/20 11:52 78 18 07/20/20 08:37 76 16 07/20/20 08:24 76 16 96 07/20/20 08:00 16 07/20/20 07:25 97.9 F 91 20 128/77 97 07/20/20 07:03 98.3 F 106 H 18 138/84 98 07/20/20 05:12 90 07/20/20 05:00 100 07/20/20 01:37 90 16 134/85 96 07/20/20 00:00 28 H 07/19/20 23:34 98 F 111 H 28 H 169/82 90 L Intake and Output 07/19/20 07/20/20 07/20/20 22:59 06:59 14:59 Intake Total 240 Balance 240 Intake: Oral 240 Other: Weight 95.254 kg 95.254 kg GENERAL: The patient is alert and oriented x3, not in any acute distress. Well developed, well nourished. HEENT: Pupils are round and equally reacting to light. EOMI. No scleral icterus. No conjunctival pallor. Normocephalic, atraumatic. No pharyngeal erythema. No thyromegaly. CARDIOVASCULAR: S1 and S2 present. No murmurs, rubs, or gallops. PULMONARY: Chest is clear to auscultation, bilateral scattered wheezing. No crackles. ABDOMEN: Soft, nontender, nondistended, normoactive bowel sounds. No palpable organomegaly. MUSCULOSKELETAL: No joint swelling or deformity. EXTREMITIES: No cyanosis, clubbing, or pedal edema. NEUROLOGICAL: Gross neurological examination did not reveal any focal deficits. SKIN: No rashes. No petechiae Results CBC & Chem 7: 07/20/20 00:01 07/20/20 00:01 Labs: Abnormal Lab Results - Last 24 Hours (Table) 07/20/20 07/20/20 Range/Units 00:01 00:01 Eosinophils # 1.1 H (0-0.7) k/uL Carbon Dioxide 33 H (22-30) mmol/L Glucose 110 H (74-99) mg/dL Lactate Dehydrogenase 669 H (313-618) U/L Thrombosis Risk Factor Assmnt - Choose All That Apply Any of the Below Risk Factors Present?: Yes Each Factor Represents 1 point: Abnormal pulmonary function (COPD), Obesity (BMI >25), Serious lung disease incl. pneumonia (< 1month) Other Risk Factors: Yes Each Risk Factor Represents 2 Points: Age 61-74 years Other congenital or acquired thrombophilia - If yes, enter type in comment: No Thrombosis Risk Factor Assessment Total Risk Factor Score: 5 Thrombosis Risk Factor Assessment Level: High Risk Assessment and Plan Assessment: Acute asthma exacerbation reactive with negative d-dimer and 0.29. Coronavirus not detected Sarcoidosis Hypertension Hypothyroidism History of bronchitis and seasonal ALLERGIES History of gastric ulcer Plan: This is a pleasant 65 years old female who presents because of acute asthma exacerbation. Continue with Solu-Medrol. Cough medicine. Pulmonary consult Labs and medication were reviewed.. Continue same treatment. Continue with symptomatic treatment. Resume home medication. Monitor lytes and vitals. DVT and GI prophylaxis. Further recommendations depends on the clinical course of the patient DVT prophylaxis: Subcutaneous heparin GI Prophylaxis: Pepcid
[2020-07-20] MEDS: amLODIPine 5 MG TAB PO SCH (13:08)
[2020-07-20] MEDS: AZITHROMYCIN 500 MG TAB PO SCH (13:08)
[2020-07-20] MEDS: guaiFENesin-DM 100-10MG/5ML 10 ML CUP PO PRN ×2 (13:08→20:59)
--- NOTE | 2020-07-20 14:28 | P.CNPUL ---
History of Present Illness Consult date: 07/20/20 Requesting physician: Tobi James Reason for consult: asthma, other Chief complaint: Cough and shortness of breath History of present illness: This is a 61-year-old female with history of hypertension, bronchial asthma, sarcoidosis, normally sees Dr. Sutton for sarcoid and her asthma. Patient presented to the hospital with a few days' history of cough wheezing and shortness of breath. Patient is supposedly compliant with her medications including Advair, Spiriva, Singulair, and Ventolin. Chest x-ray upon admission showed chronic minimal fibrotic changes, no active disease was appreciated. Patient had no fever, no chills, no hemoptysis, described a cough as nonproductive, difficulty clearing secretions, again she had no fever no chills and no hemoptysis. In the ER, patient was noted to have extreme shortness of breath with wheezing, admitted, placed on steroids, bronchodilators, and I was asked to see her on consultation. Review of Systems CONSTITUTIONAL: No fever, no malaise, no fatigue. HEENT: No recent visual problems or hearing problems. Denied any sore throat. CARDIOVASCULAR: No orthopnea, PND, no palpitations, no syncope. PULMONARY: No chest wall tenderness, no hemoptysis. GASTROINTESTINAL: No diarrhea, no nausea, no vomiting, no abdominal pain. Normoactive bowel sounds. NEUROLOGICAL: No headaches, no weakness, no numbness. HEMATOLOGICAL: Denies any bleeding or petechiae. GENITOURINARY: Denies any burning micturition, frequency, or urgency. MUSCULOSKELETAL/RHEUMATOLOGICAL: Denies any joint pain, swelling, or any muscle pain. ENDOCRINE: Denies any polyuria or polydipsia. Past Medical History Past Medical History: Asthma, GERD/Reflux, Hypertension, Pneumonia, Respiratory Disorder, Thyroid Disorder Additional Past Medical History / Comment(s): Sarcoidosis, SOB with activity, bronchitis, seasonal allergies, murmur, benign thyroid nodule, gastric ulcer, H pylori History of Any Multi-Drug Resistant Organisms: None Reported Past Surgical History: Bowel Resection, Breast Surgery, Cholecystectomy Additional Past Surgical History / Comment(s): Bowel resection d/t multiple be nign polyps, EGD/colonoscopy, benign vocal cord polyp removed, R breast benign polypectomy, thyroid biopsy Past Anesthesia/Blood Transfusion Reactions: No Reported Reaction Additional Past Anesthesia/Blood Transfusion Reaction / Comment(s): patient has never received a blood transfusion, no reaction to anesthesia Smoking Status: Never smoker - Past Family History Father Family Medical History: Cancer Additional Family Medical History / Comment(s): throat cancer Mother Family Medical History: Cancer Additional Family Medical History / Comment(s): Mother had neck cancer. She is . Medications and Allergies Home Medications Medication Instructions Recorded Confirmed Type Montelukast [Singulair] 10 mg PO HS 05/09/14 07/20/20 History Tiotropium [place] [Spiriva] 1 cap INHALATION RT-DAILY 12/13/16 07/20/20 History Ipratropium-Albuterol Nebulize 3 ml INHALATION RT-QID PRN 01/10/17 07/20/20 History [Duoneb 0.5 mg-3 mg/3 ml Soln] Triamcinolone Acetonide [Nasacort] 1 spray EA NOSTRIL DAILY 06/25/18 07/20/20 History Cetirizine HCl [Zyrtec] 10 mg PO DAILY 07/20/20 07/20/20 History Fluticasone/Vilanterol [Breo 1 puff INHALATION RT-DAILY 07/20/20 07/20/20 History Ellipta 200-25 Mcg INH] Losartan Potassium [Cozaar] 50 mg PO DAILY 07/20/20 07/20/20 History amLODIPine [Norvasc] 5 mg PO DAILY 07/20/20 07/20/20 History lisinopriL [Zestril] 5 mg PO DAILY 07/20/20 07/20/20 History Allergies Allergy/AdvReac Type Severity Reaction Status Date / Time Penicillins Allergy Rash/Hives Verified 07/20/20 08:42 Physical Exam Vitals: Vital Signs Temp Pulse Pulse Resp BP BP Pulse Ox 07/20/20 13:43 97.6 F 88 16 147/80 97 07/20/20 12:04 81 18 07/20/20 11:52 78 18 07/20/20 08:37 76 16 07/20/20 08:24 76 16 96 07/20/20 08:00 16 07/20/20 07:25 97.9 F 91 20 128/77 97 07/20/20 07:03 98.3 F 106 H 18 138/84 98 07/20/20 05:12 90 07/20/20 05:00 100 07/20/20 01:37 90 16 134/85 96 07/20/20 00:00 28 H 07/19/20 23:34 98 F 111 H 28 H 169/82 90 L Intake and Output 07/19/20 07/20/20 07/20/20 22:59 06:59 14:59 Intake Total 720 Balance 720 Intake: Oral 720 Other: Weight 95.254 kg 95.254 kg Physical Exam revealed a 65-year-old female in no distress. Head: Atraumatic, normocephalic. HEENT:[Neck is supple.] [No neck masses.] [No thyromegaly.] [No JVD.] Chest: [Diffuse rhonchi and wheezes bilaterally. Cardiac Exam: [Normal S1 and S2, no S3 gallop, no murmur.] Abdomen: [Soft, nontender, no megaly, no rebound, no guarding, normal bowel s ounds.] Extremities: [No clubbing, no edema, no cyanosis.] Neurological Exam: [No focal neurologic deficit.] And oriented 3. Psychiatric: Normal mood affect and normal mental status examination. Skin: No rashes. Results - Laboratory Findings CBC and BMP: 07/20/20 00:01 07/20/20 00:01 PT/INR, D-dimer PT 9.9 sec (9.0-12.0) 07/20/20 00:01 INR 0.9 (<1.2) 07/20/20 00:01 D-Dimer 0.29 mg/L FEU (<0.60) 07/20/20 00:01 Abnormal lab findings: Abnormal Labs 07/20/20 07/20/20 00:01 00:01 Eosinophils # 1.1 H Carbon Dioxide 33 H Glucose 110 H Lactate Dehydrogenase 669 H - Diagnostic Findings Chest x-ray: image reviewed (As noted in HPI) Assessment and Plan Assessment: Impression: Acute exacerbation of mild intermittent bronchial asthma. History of sarcoidosis, quiescent. History of hypertension. Hypothyroidism. Multiple environmental ALLERGIES and seasonal ALLERGIC rhinitis. History of gastric ulcer. Recommendation: Continue present treatment plan including present bronchodilators, Solu-Medrol, Zithromax orally, Chest x-ray was reviewed and discussed with the patient. GI and DVT prophylaxis. Consider discharge planning in the next 24-48 hours Time with Patient: Greater than 30
[2020-07-20] MEDS: MONTELUKAST 10 MG TAB PO SCH (21:01)
[2020-07-20] MEDS ORDERED: ACETAMINOPHEN TAB 325 MG TAB PO PRN (21:13)
[2020-07-20] MEDS ORDERED: PANTOPRAZOLE 40 MG/10 ML VIAL IVP SCH (21:30)
[2020-07-20] MEDS ORDERED: PANTOPRAZOLE 40 MG TABLET PO STA (22:27)
[2020-07-20] MEDS: PANTOPRAZOLE 40 MG TABLET PO SCH (22:52)
[2020-07-21] MEDS: SODIUM CHLORIDE 0.9% 1,000 ML IV SCH (04:34)
[2020-07-21] MEDS: methylPREDNISolone SOD SUCCI 125 MG/2 ML VIAL IV SCH ×4 (05:40→23:45)
[2020-07-21] MEDS: IPRATROPIUM-ALBUTEROL 3 ML NEB INHALATION SCH ×4 (08:17→20:49)
[2020-07-21] MEDS: BUDESONIDE 1 MG/2 ML NEBU INHALATION SCH ×2 (08:17→20:49)
[2020-07-21] MEDS: amLODIPine 5 MG TAB PO SCH (08:38)
[2020-07-21] MEDS: PANTOPRAZOLE 40 MG TABLET PO SCH (08:38)
[2020-07-21] MEDS: LORATADINE 10 MG TAB PO SCH (08:38)
[2020-07-21] MEDS ORDERED: lisinopriL 5 MG TAB PO SCH (09:00)
[2020-07-21] MEDS: AZITHROMYCIN 500 MG TAB PO SCH (12:04)
--- NOTE | 2020-07-21 12:43 | P.PN ---
Subjective Progress Note Date: 07/21/20 Principal diagnosis: Acute exacerbation of mild intermittent chronic bronchial asthma Objective - Vital Signs Vital signs: Vital Signs Temp 98.1 F 07/21/20 07:00 Pulse 88 07/21/20 12:20 Resp 18 07/21/20 08:00 BP 132/74 07/21/20 07:00 Pulse Ox 95 07/21/20 02:00 Intake & Output 07/20/20 07/21/20 07/21/20 18:59 06:59 18:59 Intake Total 720 240 180 Balance 720 240 180 Weight 95.254 kg Intake: Oral 720 240 180 Other: Voiding Method Toilet # Voids 1 - Exam GENERAL EXAM: Alert, active, pleasant 65-year-old female patient, on 3 L nasal cannula. comfortable in no apparent distress. HEAD: Normocephalic. EYES: Normal reaction of pupils, equal size. NOSE: Clear with pink turbinates. THROAT: No erythema or exudates. NECK: No masses, no JVD. CHEST: No chest wall deformity. LUNGS: Equal air entry with bilateral end expiratory wheeze, diminished CVS: S1 and S2 normal with no audible murmur, regular rhythm. ABDOMEN: No hepatosplenomegaly, normal bowel sounds, no guarding or rigidity. SPINE: No scoliosis or deformity SKIN: No rashes CENTRAL NERVOUS SYSTEM: No focal deficits, tone is normal in all 4 extremities. EXTREMITIES: There is no peripheral edema. No clubbing, no cyanosis. Peripheral pulses are intact. - Labs CBC & Chem 7: 07/20/20 00:01 07/20/20 00:01 Assessment and Plan Assessment: 1 Acute exacerbation of mild intermittent chronic bronchial asthma 2 History of sarcoidosis, currently inactive and stable. History of hypertension 4 Hypothyroidism 5 History of multiple environmental ALLERGIES 6 History of seasonal ALLERGIC rhinitis 7 History of gastric ulcer Plan: The patient was seen and evaluated by Dr. Wild Improved but not quite back to her baseline We will continue the current treatment plan Probable discharge in the a.m. I, the cosigning physician, performed a history & physical examination of the patient. Lungs sounds with bilateral end expiratory wheezing. Maintaining good O2 saturations in the 90s on 3 L/m per nasal cannula. I discussed the assessment and plan of care with my nurse practitioner, Ariane Alberto. I attest to the above note as dictated by her.
--- NOTE | 2020-07-21 15:29 | P.PN ---
Subjective This is a pleasant 65 years old female with past medical history of asthma, hypertension or hypothyroidism, sarcoidosis,bronchitis and seasonal ALLERGIES, gastric ulcer. She is a patient of Dr. Walsh and our [facility]. Presents because of dyspnea. Her dyspnea was started more than 5-7 days ago associated with worsening dry cough but no chest pain or diarrhea or urinary complaints. No fever. She denies smoking, alcohol or illicit drugs. She drinks alcohol occasionally She has a daughter who about 2 months ago On admission she was tachypneic around 28 breaths per minute and tachycardic 111 and saturating 90% on room air. Currently saturation is 96% on 3 L oxygen. And presented at 16. Patient is afebrile. Labs are unremarkable including CBC, INR 0.9, BMP and liver enzymes. Carbon dioxide is elevated at 33, d-dimer is negative as 0.29 Coronavirus not detected Chest x-ray: No acute process. Mild pulmonary fibrotic changes EKG showing normal sinus rhythm at 100/m with no significant ST-T changes. An emergency room patient received Solu-Medrol 60 mg and some normal saline IV fluids which is a stop now. 07/21/2020 Patient still with dyspnea and she still on expiratory wheezing although she showed some improvement and she saturating 100% and 2-3 L oxygen via nasal cannula. Even the patient says she is not ready to go home today. She is hemodynamically stable. She remains on Zithromax and Solu-Medrol 60 mg Pulmonary input is appreciated Possible discharge in 24-48 hours Review of Systems CONSTITUTIONAL: No fever, no malaise, no fatigue. HEENT: No recent visual problems or hearing problems. Denied any sore throat. CARDIOVASCULAR: No orthopnea, PND, no palpitations, no syncope. PULMONARY: No chest wall tenderness, no hemoptysis. GASTROINTESTINAL: No diarrhea, no nausea, no vomiting, no abdominal pain. Norm oactive bowel sounds. NEUROLOGICAL: No headaches, no weakness, no numbness. Active Medications Generic Name Dose Route Start Last Admin Trade Name Freq PRN Reason Stop Dose Admin Acetaminophen 650 mg 07/20/20 21:13 07/20/20 21:45 Acetaminophen Tab 325 Mg Tab PO 650 mg Q6HR PRN Administration Fever and/ or Pain Albuterol/Ipratropium 3 ml 07/20/20 08:00 07/21/20 12:09 Ipratropium-Albuterol 3 Ml Neb INHALATION 3 ml RT-QID TIFFANY Administration Albuterol/Ipratropium 3 ml 07/20/20 00:56 Ipratropium-Albuterol 3 Ml Neb INHALATION RT-Q4H PRN Shortness Of Breath Or Wheezing Amlodipine Besylate 5 mg 07/20/20 12:15 07/21/20 08:38 Amlodipine 5 Mg Tab PO 5 mg DAILY TIFFANY Administration Azithromycin 500 mg 07/20/20 13:00 07/21/20 12:04 Azithromycin 500 Mg Tab PO 500 mg DAILY@1300 TIFFANY Administration Budesonide 1 mg 07/20/20 08:00 07/21/20 08:17 Budesonide 1 Mg/2 Ml Nebu INHALATION 1 mg RT-BID TIFFANY Administration Guaifenesin/Dextromethorphan 10 ml 07/20/20 12:08 07/20/20 20:59 Guaifenesin-Dm 100-10mg/5ml 10 Ml Cup PO 10 ml Q6H PRN Administration Cough Sodium Chloride 1,000 mls @ 20 mls/hr 07/20/20 01:00 07/21/20 04:34 Saline 0.9% IV 20 mls/hr .Q24H TIFFANY Administration Loratadine 10 mg 07/21/20 09:00 07/21/20 08:38 Loratadine 10 Mg Tab PO 10 mg DAILY TIFFANY Administration Methylprednisolone Sodium Succinate 60 mg 07/20/20 06:00 07/21/20 12:03 Methylprednisolone Sod Succi 125 Mg/2 Ml Vial IV 60 mg Q6HR TIFFANY Administration Montelukast Sodium 10 mg 07/20/20 21:00 07/20/20 21:01 Montelukast 10 Mg Tab PO 10 mg HS TIFFANY Administration Pantoprazole Sodium 40 mg 07/20/20 22:30 07/21/20 08:38 Pantoprazole 40 Mg Tablet PO 40 mg DAILY@0730 TIFFANY Administration Objective - Vital Signs Vital signs: Vital Signs Temp 98.1 F 07/21/20 14:55 Pulse 93 07/21/20 14:55 Resp 18 07/21/20 14:55 BP 137/70 07/21/20 14:55 Pulse Ox 100 07/21/20 14:55 Intake & Output 07/20/20 07/21/20 07/21/20 18:59 06:59 18:59 Intake Total 720 240 180 Balance 720 240 180 Weight 95.254 kg Intake: Oral 720 240 180 Other: Voiding Method Toilet # Voids 1 2 - Exam GENERAL: The patient is alert and oriented x3, not in any acute distress. Well developed, well nourished. HEENT: Pupils are round and equally reacting to light. EOMI. No scleral icterus. No conjunctival pallor. Normocephalic, atraumatic. No pharyngeal erythema. No thyromegaly. CARDIOVASCULAR: S1 and S2 present. No murmurs, rubs, or gallops. -PULMONARY: Chest is clear to auscultation, still has expiratory wheezing ABDOMEN: Soft, nontender, nondistended, normoactive bowel sounds. No palpable organomegaly. MUSCULOSKELETAL: No joint swelling or deformity. EXTREMITIES: No cyanosis, clubbing, or pedal edema. NEUROLOGICAL: Gross neurological examination did not reveal any focal deficits. SKIN: No rashes. no petechiae. - Labs CBC & Chem 7: 07/20/20 00:01 07/20/20 00:01 Assessment and Plan Assessment: Acute asthma exacerbation reactive with negative d-dimer and 0.29. Coronavirus not detected Sarcoidosis Hypertension Hypothyroidism History of bronchitis and seasonal ALLERGIES History of gastric ulcer Plan: This is a pleasant 65 years old female who presents because of acute asthma exacerbation. Continue with Solu-Medrol. Cough medicine. Pulmonary consult Labs and medication were reviewed.. Continue same treatment. Continue with symptomatic treatment. Resume home medication. Monitor lytes and vitals. DVT and GI prophylaxis. Further recommendations depends on the clinical course of the patient DVT prophylaxis: Subcutaneous heparin GI Prophylaxis: Pepcid
[2020-07-21] MEDS: MONTELUKAST 10 MG TAB PO SCH (21:03)
[2020-07-22] MEDS: guaiFENesin-DM 100-10MG/5ML 10 ML CUP PO PRN (01:21)
[2020-07-22] MEDS: SODIUM CHLORIDE 0.9% 1,000 ML IV SCH (01:21)
[2020-07-22] MEDS: methylPREDNISolone SOD SUCCI 125 MG/2 ML VIAL IV SCH (06:09)
[2020-07-22] MEDS: amLODIPine 5 MG TAB PO SCH (07:54)
[2020-07-22] MEDS: PANTOPRAZOLE 40 MG TABLET PO SCH (07:54)
[2020-07-22] MEDS: LORATADINE 10 MG TAB PO SCH (07:55)
[2020-07-22] MEDS: BUDESONIDE 1 MG/2 ML NEBU INHALATION SCH (09:10)
[2020-07-22] MEDS: IPRATROPIUM-ALBUTEROL 3 ML NEB INHALATION SCH ×2 (09:10→13:21)
[2020-07-22 09:26] VITALS: RESP 18
[2020-07-22 09:51] VITALS: BP 152/68; TEMP 97.9
--- NOTE | 2020-07-22 13:01 | P.PN ---
Subjective Progress Note Date: 07/22/20 Principal diagnosis: Acute exacerbation of mild intermittent asthma This is a 61-year-old female with history of hypertension, bronchial asthma, sarcoidosis, normally sees Dr. Sutton for sarcoid and her asthma. Patient presented to the hospital with a few days' history of cough wheezing and shortness of breath. Patient is supposedly compliant with her medications including Advair, Spiriva, Singulair, and Ventolin. Chest x-ray upon admission showed chronic minimal fibrotic changes, no active disease was appreciated. Patient had no fever, no chills, no hemoptysis, described a cough as nonproductive, difficulty clearing secretions, again she had no fever no chills and no hemoptysis. In the ER, patient was noted to have extreme shortness of breath with wheezing, admitted, placed on steroids, bronchodilators, and I was asked to see her on consultation. Patient was reevaluated today on 07/22/2020, feeling better, continues to have intermittent cough, less wheezing, less shortness of breath, patient remains on multiple bronchodilators and I believe the patient could be considered for discharge home today. She will however need to be on prednisone at 40 mg taper ed over the next 3 weeks. And she will remain on her usual bronchodilators as listed. Overall the patient is feeling better, and breathing easier Objective - Vital Signs Vital signs: Vital Signs Temp 97.9 F 07/22/20 07:52 Pulse 89 07/22/20 11:11 Resp 18 07/22/20 09:26 BP 152/68 07/22/20 07:52 Pulse Ox 97 07/22/20 11:11 Intake & Output 07/21/20 07/22/20 07/22/20 18:59 06:59 18:59 Intake Total 180 300 Balance 180 300 Intake: Oral 180 300 Other: Voiding Method Toilet Toilet # Voids 2 2 - Exam Physical Exam revealed a 65-year-old female in no distress. Head: Atraumatic, normocephalic. HEENT:[Neck is supple.] [No neck masses.] [No thyromegaly.] [No JVD.] Chest: [Clear bilaterally wheezing on forced expiratory maneuver only. Cardiac Exam: [Normal S1 and S2, no S3 gallop, no murmur.] Abdomen: [Soft, nontender, no megaly, no rebound, no guarding, normal bowel sounds.] Extremities: [No clubbing, no edema, no cyanosis.] Neurological Exam: [No focal neurologic deficit.] And oriented 3. Psychiatric: Normal mood affect and normal mental status examination. Skin: No rashes. - Labs CBC & Chem 7: 07/20/20 00:01 07/20/20 00:01 Assessment and Plan Assessment: Impression: Acute exacerbation of mild intermittent bronchial asthma. History of sarcoidosis, quiescent. History of hypertension. Hypothyroidism. Multiple environmental ALLERGIES and seasonal ALLERGIC rhinitis. History of gastric ulcer. Recommendation: Oral prednisone tapered over next 3 weeks started at 40 mg daily Resume home meds and bronchodilators. Oral Zithromax for the next 5 days. Clear to be discharged home today. Discussed with the admitting physician Dr. dubon Time with Patient: Less than 30
[2020-07-22] MEDS: AZITHROMYCIN 500 MG TAB PO SCH (13:23)
[2020-07-22 14:07] VITALS: PULSE 95
--- NOTE | 2020-07-23 08:59 | P.DS ---
Providers Date of admission: 07/21/20 23:23 Attending physician: Priscila Johnson Consults: 07/20/20 00:56 Consult Physician Routine Consulting Provider: Li Sutton Consult Reason/Comments: copd Do you want consulting provider notified?: Yes Primary care physician: Gabriele Walsh [facility] Course: Diagnoses: Acute asthma exacerbation reactive with negative d-dimer and 0.29. Coronavirus not detected Sarcoidosis Hypertension Hypothyroidism History of bronchitis and seasonal ALLERGIES History of gastric ulcer Hospital course: This is a pleasant 65 years old -British female with past medical history of asthma, hypertension or hypothyroidism, sarcoidosis,bronchitis and seasonal ALLERGIES, gastric ulcer. She is a patient of Dr. Walsh Presents because of dyspnea. Found to have acute asthma exacerbation, she was evaluated by stone spreader operator. She was treated with Zithromax, bronchodilators and IV Solu- Medrol. She showed interval improvement and she is back close to her baseline. [facility] they saw the patient and cleared her for discharge, patient also agrees she is ready to go home. She does not need home oxygen Problems and management plan were discussed with the patient and he verbalized understanding and acceptance Patient was found stable and can be discharged home however he needs follow-up as an outpatient. Patient was instructed to follow up with PCP Dr. Walsh within one week and patient agrees. Also patient was instructed to follow up with her stone spreader operator Dr. Sutton in 1-2 weeks and she agrees Physical exam Gen: patient is a AAOx3, no distress CVS: S1-S2, RRR, no murmur Lungs: B/L CTA, no wheezing Abdomen: soft, no distention, no tenderness, positive bowel sounds Extremity: no leg edema or induration Time spent more than 35 minutes Patient Condition at Discharge: Fair Plan - Discharge Summary Discharge Rx Participant: No New Discharge Prescriptions: New predniSONE 10 mg PO DIRECTED #36 tab Azithromycin [Zithromax] 500 mg PO DAILY@1300 3 Days #3 tab Omeprazole [PriLOSEC] 20 mg PO AC-BID #60 cap Continue Montelukast [Singulair] 10 mg PO HS Tiotropium [place] [Spiriva] 1 cap INHALATION RT-DAILY Ipratropium-Albuterol Nebulize [Duoneb 0.5 mg-3 mg/3 ml Soln] 3 ml INHALATION RT-QID PRN PRN Reason: Shortness Of Breath Triamcinolone Acetonide [Nasacort] 1 spray EA NOSTRIL DAILY amLODIPine [Norvasc] 5 mg PO DAILY lisinopriL [Zestril] 5 mg PO DAILY Cetirizine HCl [Zyrtec] 10 mg PO DAILY Fluticasone/Vilanterol [Breo Ellipta 200-25 Mcg INH] 1 puff INHALATION RT- DAILY Discontinued Losartan Potassium [Cozaar] 50 mg PO DAILY Discharge Medication List Montelukast [Singulair] 10 mg PO HS 05/09/14 [History] Tiotropium [place] [Spiriva] 1 cap INHALATION RT-DAILY 12/13/16 [History] Ipratropium-Albuterol Nebulize [Duoneb 0.5 mg-3 mg/3 ml Soln] 3 ml INHALATION RT-QID PRN 01/10/17 [History] Triamcinolone Acetonide [Nasacort] 1 spray EA NOSTRIL DAILY 06/25/18 [History] Cetirizine HCl [Zyrtec] 10 mg PO DAILY 07/20/20 [History] Fluticasone/Vilanterol [Breo Ellipta 200-25 Mcg INH] 1 puff INHALATION RT-DAILY 07/20/20 [History] amLODIPine [Norvasc] 5 mg PO DAILY 07/20/20 [History] lisinopriL [Zestril] 5 mg PO DAILY 07/20/20 [History] Azithromycin [Zithromax] 500 mg PO DAILY@1300 3 Days #3 tab 07/22/20 [Rx] Omeprazole [PriLOSEC] 20 mg PO AC-BID #60 cap 07/22/20 [Rx] predniSONE 10 mg PO DIRECTED #36 tab 07/22/20 [Rx] Follow up Appointment(s)/Referral(s): [facility] [NON-STAFF] - Gabriele Walsh DO [Primary Care Provider] - 1-2 days Li Sutton MD [STAFF PHYSICIAN] - 1 Week Activity/Diet/Wound Care/Special Instructions: Patient needs nebulizer at time of discharge secondary to COPD, patient uses Duoneb low carbohydrate diet activity is restricted till you see your doctor Discharge Disposition: HOME SELF-CARE
[2020-07-23] MEDS ORDERED: predniSONE 20 MG TAB PO SCH (09:00)
== END 2020-07-22 14:30 | disposition home or self-care (01) | DRG 191 ==
LOC: EC 23:33 → 6NMEDSUR 07-20 00:56 → 1SOBS 07-20 07:25 → 6NMEDSUR 07-20 13:24 → OBSVTOIN 07-21 23:23
PROVIDERS: ADMIT Hospitalist; ATTEND Hospitalist
DX: J44.1 Chronic obstructive pulmonary disease with (acute) exacerbation (principal); J45.21 Mild intermittent asthma with (acute) exacerbation; D86.9 Sarcoidosis, unspecified; Z87.01 Personal history of pneumonia (recurrent); R09.02 Hypoxemia; I10 Essential (primary) hypertension; E03.9 Hypothyroidism, unspecified; Z80.8 Family history of malignant neoplasm of other organs or systems; Z87.11 Personal history of peptic ulcer disease; Z20.822 Contact with and (suspected) exposure to COVID-19
CPT/HCPCS: 36415; 71045; 80053; 83605; 83615; 83735; 85025; 85379; 85610; 85730; 86140; 87635; 93005; 94640; 94760; 96365; 96375; 99285